=== PATIENT | male | born 1980 | race Caucasian/White ===

== ENCOUNTER 2018-06-17 05:12 | Inpatient (IN) ==
[2018-06-17] MEDS ORDERED: Ondansetron 4 MG/2 ML VIAL IVP ONE (05:33)
[2018-06-17] MEDS ORDERED: 0.9 % Sodium Chloride 1,000 ML IVC ONE ×2 (05:33→07:47)
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
[2018-06-17] MEDS ORDERED: *HR* FentaNYL (PF) 100 MCG/2 ML VIAL IVP ONE (06:02)
[2018-06-17 06:10] LABS: Bilirubin,Urine Negative (Negative); Blood,Urine Small (Negative); Clarity,Urine Turbid (Clear); Color,Urine Yellow (Yellow); Glucose,Urine (UA) Normal (Normal); Ketones,Urine Negative (Negative); Leukocyte Esterase,Urine Moderate (Negative); Nitrite,Urine Positive (Negative); Protein,Urine 30 mg/dL (Neg-Trace); Specific Gravity,Urine 1.014 (1.010-1.025); Urobilinogen,Urine Normal (Normal)
[2018-06-17 06:25] LABS: Amorphous Sediment,Urine Many (Few); Bacteria,Urine Many per hpf (None-Few); Granular Casts,Urine Moderate per lpf (None Seen); RBC,Urine 0-3 per hpf (0-3); WBC,Urine 30-50 per hpf (0-3)
[2018-06-17 06:26] LABS: Squamous Epithelial Cell,Urine Few per lpf (None-Few)
[2018-06-17] MEDS ORDERED: Piperacillin/Tazobactam 3.375 GM in 0.9 % Sodium Chloride Mini Bag 100 ML IVPB ONE (06:40)
[2018-06-17 06:46] LABS: Hematocrit 51.2 % (37.5-50.1); Hemoglobin 17.5 g/dL (12.9-16.9); Mean Corpuscular HGB Conc 34.2 g/dL (31.6-35.5); Mean Corpuscular Hemoglobin 29.6 pg (28.0-33.3); Mean Corpuscular Volume 86.6 fL (83.0-100.0); Platelet Count 154 K/mcL (140-400); Red Blood Count 5.91 M/mcL (4.19-5.50); Red Cell Distribution Width 14.1 % (11.5-14.5)
[2018-06-17 07:06] LABS: Alanine Aminotransferase 50 Units/L (7-52); Albumin/Globulin Ratio 1.9 (1.1-2.2); Alkaline Phosphatase 143 Units/L (34-104); Aspartate Amino Transferase 29 Units/L (13-39); BUN/Creatinine Ratio 11 (6-26); Bilirubin,Direct 0.2 mg/dL (0.0-0.2); Bilirubin,Indirect 0.6 mg/dL (0.0-1.2); Bilirubin,Total 0.8 mg/dL (0.3-1.0); Blood Urea Nitrogen 15 mg/dL (6-20); Calcium 9.7 mg/dL (8.6-10.3); Carbon Dioxide 20 mEq/L (23-29); Chloride 102 mEq/L (98-107); Globulin 2.6 g/dL (2.4-3.5); Glucose 130 mg/dL (70-105); Lipase 8 Units/L (11-82); Osmolality,Calculated 287 (280-300); Potassium 3.9 mEq/L (3.5-5.1); Sodium 137 mEq/L (136-145); Total Protein 7.6 g/dL (6.4-8.9); eGFR For Non-African Americans > 60 (> 60)
[2018-06-17 07:08] LABS: Lymphocytes # 0.5 K/mcL (0.6-4.6); Neutrophils # 23.8 K/mcL (1.6-8.9); Platelet Estimate Normal (Normal)
[2018-06-17] MEDS ORDERED: *HR* HYDROmorphone (PF) 1 MG/ML SYRINGE IVP ONE (07:18)
--- NOTE | 2018-06-17 07:19 | Emergency Department Note ---
Disposition Clinical Impression: Hypoxia, Left ureteral calculus, Hydroureter, left, Acute kidney injury, Severe sepsis UTI (urinary tract infection) Qualifiers: Urinary tract infection type: site unspecified Hematuria presence: without hematuria Qualified Code(s): N39.0 - Urinary tract infection, site not specified Nausea and vomiting Qualifiers: Vomiting type: unspecified Vomiting Intractability: non-intractable Qualified Code(s): R11.2 - Nausea with vomiting, unspecified Abdominal pain Qualifiers: Abdominal location: unspecified location Qualified Code(s): R10.9 - Unspecified abdominal pain Disposition: Admitted As Inpatient Condition: Fair Referrals: NONE,PCP [Primary Care Provider] - Forms: ED Satisfaction Letter, Work/School Release Time of Disposition: 07:58 General Adult HPI - General Chief complaint: ED Abdominal Pain Stated complaint: "Abd Pain/Headache" Time Seen by Provider: 06/17/18 05:31 Source: patient, family Mode of arrival: wheelchair Limitations: physical limitation Nursing Notes Reviewed: Yes Vital Signs Reviewed: Yes - History of Present Illness HPI Narrative: Patient was signed out to me by nighttime physician is Dr. Gentile and Dr. Rosas pending laboratory results and final disposition. Please see their note for further details. Pain Scale: 9 - Related Data Previous Rx's Medication Instructions Recorded Clindamycin [Cleocin] 450 mg PO TID 7 Days capsule 01/12/16 Allergies Allergy/AdvReac Type Severity Reaction Status Date / Time No Known Allergies Allergy Verified 06/14/15 02:45 All systems ED: reviewed and negative except as stated. Constitutional: Denies: fever Cardiovascular: Denies: chest pain Respiratory: Reports: cough Gastrointestinal: Reports: abdominal pain, nausea, vomiting. Denies: diarrhea Genitourinary: Denies: urgency, dysuria Neurological: Denies: headache, weakness, numbness, paresthesias Past Medical History - Past Medical History Medical history: Reports: hypertension, seizures, other Psychiatric history: Reports: no psych history - Social History Smoking Status: Unknown if ever smoked Smokeless Tobacco Status: No Alcohol use: Reports: none Drug use: Reports: none Physical Exam - General Limitations: physical limitation General appearance: alert, in no apparent distress Course Course Narrative: Patient was signed out to me by nighttime physician is Dr. Gentile and Dr. Rosas pending laboratory results and final disposition. Please see their note for further details. Calin is a 37-year-old male with a history of traumatic brain injury with mul tiple abdominal surgeries for postop complications who presents emergency department with abdominal pain nausea vomiting. Symptoms occurred last night. He is in the presence of his parents to take care of them. He initially presented hypoxic on room air 88%. The abdominal pain is quite generalized with to report episodes of nonbloody emesis. CT scan shows 2 mm stone in the distal ureter with some hydronephrosis. Patient wears a condom catheter urinalysis appears consistent with infection with positive nitrite and leuk esterase. Given his history of dysphasia and recent removal of feeding tube the concern was for aspiration. Chest x-ray was performed did not reveal any basilar opacities. However given the presentation of hypoxia abdominal discomfort and urinary tract infection he was treated with Zosyn. His lactate has come back as 2.6. Given his initial presentation of tachycardia with a leukocytosis in the elevated lactate concern for severe sepsis, recognized at 0730. Patient has been fluid resuscitated at this time it will be admitted for further evaluation and treatment. Blood cultures have been obtained. - Consultations Consultation #1: Spoke with the urologist Dr. Robin he will be happy to consult on the floor and evaluate the patient. Given the patient's medical history and size of the stone it is possible it may pass on its own. He will come to evaluate the patient and discuss the plan with the family. Agree with admission to the medicine team. Time: 07:53 Consultation #2: Spoke with on-call hospitalist janett Sinclair to admit for severe sepsis, urin kendrick tract infection, left kidney stone, acute kidney injury. No further orders at this time Time: 08:30 Vital Signs Temperature 97.7 F 06/17/18 05:17 Pulse Rate 133 06/17/18 05:17 Respiratory Rate 18 06/17/18 05:17 Blood Pressure 123/80 06/17/18 05:17 O2 Sat by Pulse Oximetry 88 06/17/18 05:17 Temperature 97.7 F 06/17/18 05:28 Pulse Rate 133 06/17/18 05:28 Respiratory Rate 18 06/17/18 05:28 Blood Pressure 123/80 06/17/18 05:28 O2 Sat by Pulse Oximetry 88 06/17/18 05:28 Oxygen Delivery Oxygen Delivery Room Air Medical Decision Making - MDM Narrative Medical decision making narrative: Patient was discussed with my attending physician who agrees with ED management and final disposition. They independently evaluated the patient. Please refer to their attestation to this encounter for additional information. This note was generated by [employer] voice recognition software and as a result grammatical or spelling errors may occur using this program. - Medical Records Medical records reviewed: Yes I reviewed the patient's medical records. - Lab Data Lab results reviewed: Yes I reviewed the patient's lab results. Result diagrams: 06/17/18 06:30 06/17/18 06:30 Lab Results 06/17/18 06/17/18 06/17/18 Range/Units 06:00 06:30 06:30 WBC 24.3 H (4.3-11.1) K/mcL RBC 5.91 H (4.19-5.50) M/mcL Hgb 17.5 H (12.9-16.9) g/dL Hct 51.2 H (37.5-50.1) % MCV 86.6 (83.0-100.0) fL MCH 29.6 (28.0-33.3) pg MCHC 34.2 (31.6-35.5) g/dL RDW 14.1 (11.5-14.5) % Plt Count 154 (140-400) K/mcL MPV 10.0 (9.4-12.4) fL Seg Neutrophils % 88.0 % Band Neutrophils % 10.0 H (0-4) % Lymphocytes % 2.0 % Neutrophils # 23.8 H (1.6-8.9) K/mcL Lymphocytes # 0.5 L (0.6-4.6) K/mcL Platelet Estimate Normal (Normal) Sodium 137 (136-145) mEq/L Potassium 3.9 (3.5-5.1) mEq/L Chloride 102 (98-107) mEq/L Carbon Dioxide 20 L (23-29) mEq/L BUN 15 (6-20) mg/dL Creatinine 1.32 H (0.70-1.30) mg/dL Est GFR ( Amer) > 60 (> 60) Est GFR (Non-Af Amer) > 60 (> 60) BUN/Creatinine Ratio 11 (6-26) Glucose 130 H (70-105) mg/dL Calculated Osmolality 287 (280-300) Lactic Acid (0.5-2.2) mmol/L Calcium 9.7 (8.6-10.3) mg/dL Total Bilirubin 0.8 (0.3-1.0) mg/dL Direct Bilirubin 0.2 (0.0-0.2) mg/dL Indirect Bilirubin 0.6 (0.0-1.2) mg/dL AST 29 (13-39) Units/L ALT 50 (7-52) Units/L Alkaline Phosphatase 143 H (34-104) Units/L Serum Total Protein 7.6 (6.4-8.9) g/dL Albumin 5.0 (3.5-5.7) g/dL Globulin 2.6 (2.4-3.5) g/dL Albumin/Globulin Ratio 1.9 (1.1-2.2) Lipase 8 L (11-82) Units/L Urine Color Yellow (Yellow) Urine Clarity Turbid A (Clear) Urine pH 7.0 (5.0-8.0) pH Units Ur Specific [place] 1.014 (1.010-1.025) Urine Protein 30 H (Neg-Trace) mg/dL Urine Glucose (UA) Normal (Normal) mg/dL Urine Ketones Negative (Negative) mg/dL Urine Blood Small H (Negative) Urine Nitrite Positive A (Negative) Urine Bilirubin Negative (Negative) Urine Urobilinogen Normal (Normal) mg/dL Ur Leukocyte Esterase Moderate H (Negative) Urine Microscopic RBC 0-3 (0-3) per hpf Urine Microscopic WBC 30-50 H (0-3) per hpf Ur Squamous Epith Cells Few (None-Few) per lpf Amorphous Sediment Many H (Few) Urine Bacteria Many H (None-Few) per hpf Granular Casts Moderate H (None Seen) per lpf Ur Culture Indicated? YES A (NO) 06/17/18 Range/Units 07:00 WBC (4.3-11.1) K/mcL RBC (4.19-5.50) M/mcL Hgb (12.9-16.9) g/dL Hct (37.5-50.1) % MCV (83.0-100.0) fL MCH (28.0-33.3) pg MCHC (31.6-35.5) g/dL RDW (11.5-14.5) % Plt Count (140-400) K/mcL MPV (9.4-12.4) fL Seg Neutrophils % % Band Neutrophils % (0-4) % Lymphocytes % % Neutrophils # (1.6-8.9) K/mcL Lymphocytes # (0.6-4.6) K/mcL Platelet Estimate (Normal) Sodium (136-145) mEq/L Potassium (3.5-5.1) mEq/L Chloride (98-107) mEq/L Carbon Dioxide (23-29) mEq/L BUN (6-20) mg/dL Creatinine (0.70-1.30) mg/dL Est GFR ( Amer) (> 60) Est GFR (Non-Af Amer) (> 60) BUN/Creatinine Ratio (6-26) Glucose (70-105) mg/dL Calculated Osmolality (280-300) Lactic Acid 2.6 H (0.5-2.2) mmol/L Calcium (8.6-10.3) mg/dL Total Bilirubin (0.3-1.0) mg/dL Direct Bilirubin (0.0-0.2) mg/dL Indirect Bilirubin (0.0-1.2) mg/dL AST (13-39) Units/L ALT (7-52) Units/L Alkaline Phosphatase (34-104) Units/L Serum Total Protein (6.4-8.9) g/dL Albumin (3.5-5.7) g/dL Globulin (2.4-3.5) g/dL Albumin/Globulin Ratio (1.1-2.2) Lipase (11-82) Units/L Urine Color (Yellow) Urine Clarity (Clear) Urine pH (5.0-8.0) pH Units Ur Specific [place] (1.010-1.025) Urine Protein (Neg-Trace) mg/dL Urine Glucose (UA) (Normal) mg/dL Urine Ketones (Negative) mg/dL Urine Blood (Negative) Urine Nitrite (Negative) Urine Bilirubin (Negative) Urine Urobilinogen (Normal) mg/dL Ur Leukocyte Esterase (Negative) Urine Microscopic RBC (0-3) per hpf Urine Microscopic WBC (0-3) per hpf Ur Squamous Epith Cells (None-Few) per lpf Amorphous Sediment (Few) Urine Bacteria (None-Few) per hpf Granular Casts (None Seen) per lpf Ur Culture Indicated? (NO) - Radiology Data Radiology results reviewed: Yes I reviewed the patient's radiology results. Abdomen/Pelvis CT 06/17/18 05:32 IMPRESSION: 1. Mild left hydroureteronephrosis secondary to a 2 mm distal left ureteral calculus. 2. Left renal calculus measuring 1.1 cm. D/ / Cash Baltazar MD / Cash Baltazar MD Interpreting Provider: Cash Baltazar MD Chest X-Ray 06/17/18 05:34 IMPRESSION: 1. No active pulmonary disease. D/ / Cash Baltazar MD / Cash Baltazar MD Interpreting Provider: Cash Baltazar MD Attestation Statement - Attestation Attestation: I, Wilbert Gandara DO, examined this patient [id number] and my medical decision-making was reviewed with Denilson Dickerson DO , Resident Physician. I agree with the documented findings, disposition and treatment plan as described except to the extent set forth below. Please see my progress notes for details.
--- NOTE | 2018-06-17 07:57 | Emergency Department Note ---
Disposition Clinical Impression: Hypoxia, Left ureteral calculus, Hydroureter, left, Acute kidney injury, Severe sepsis UTI (urinary tract infection) Qualifiers: Urinary tract infection type: site unspecified Hematuria presence: without hematuria Qualified Code(s): N39.0 - Urinary tract infection, site not specified Nausea and vomiting Qualifiers: Vomiting type: unspecified Vomiting Intractability: non-intractable Qualified Code(s): R11.2 - Nausea with vomiting, unspecified Abdominal pain Qualifiers: Abdominal location: unspecified location Qualified Code(s): R10.9 - Unspecified abdominal pain Disposition: Admitted As Inpatient Condition: Fair Referrals: NONE,PCP [Primary Care Provider] - Forms: ED Satisfaction Letter, Work/School Release Time of Disposition: 08:31 General Adult HPI - General Chief complaint: ED Abdominal Pain Stated complaint: "Abd Pain/Headache" Time Seen by Provider: 06/17/18 05:31 Source: patient, family Mode of arrival: wheelchair Limitations: physical limitation - History of Present Illness Pain Scale: 9 - Related Data Previous Rx's Medication Instructions Recorded Clindamycin [Cleocin] 450 mg PO TID 7 Days capsule 01/12/16 Allergies Allergy/AdvReac Type Severity Reaction Status Date / Time No Known Allergies Allergy Verified 06/14/15 02:45 Constitutional: Denies: fever Cardiovascular: Denies: chest pain Respiratory: Reports: cough Gastrointestinal: Reports: abdominal pain, nausea, vomiting. Denies: diarrhea Genitourinary: Denies: urgency, dysuria Neurological: Denies: headache, weakness, numbness, paresthesias Past Medical History - Past Medical History Medical history: Reports: hypertension, seizures, other Psychiatric history: Reports: no psych history - Social History Smoking Status: Unknown if ever smoked Smokeless Tobacco Status: No Alcohol use: Reports: none Drug use: Reports: none Physical Exam - General Limitations: physical limitation General appearance: alert, in no apparent distress Course Vital Signs Temperature 97.7 F 06/17/18 05:17 Pulse Rate 133 06/17/18 05:17 Respiratory Rate 18 06/17/18 05:17 Blood Pressure 123/80 06/17/18 05:17 O2 Sat by Pulse Oximetry 88 06/17/18 05:17 Temperature 97.7 F 06/17/18 05:28 Pulse Rate 133 06/17/18 05:28 Respiratory Rate 18 06/17/18 05:28 Blood Pressure 123/80 06/17/18 05:28 O2 Sat by Pulse Oximetry 88 06/17/18 05:28 Oxygen Delivery Oxygen Delivery Room Air Medical Decision Making - Lab Data Result diagrams: 06/17/18 06:30 06/17/18 06:30 Lab Results 06/17/18 06/17/18 06/17/18 Range/Units 06:00 06:30 06:30 WBC 24.3 H (4.3-11.1) K/mcL RBC 5.91 H (4.19-5.50) M/mcL Hgb 17.5 H (12.9-16.9) g/dL Hct 51.2 H (37.5-50.1) % MCV 86.6 (83.0-100.0) fL MCH 29.6 (28.0-33.3) pg MCHC 34.2 (31.6-35.5) g/dL RDW 14.1 (11.5-14.5) % Plt Count 154 (140-400) K/mcL MPV 10.0 (9.4-12.4) fL Seg Neutrophils % 88.0 % Band Neutrophils % 10.0 H (0-4) % Lymphocytes % 2.0 % Neutrophils # 23.8 H (1.6-8.9) K/mcL Lymphocytes # 0.5 L (0.6-4.6) K/mcL Platelet Estimate Normal (Normal) Sodium 137 (136-145) mEq/L Potassium 3.9 (3.5-5.1) mEq/L Chloride 102 (98-107) mEq/L Carbon Dioxide 20 L (23-29) mEq/L BUN 15 (6-20) mg/dL Creatinine 1.32 H (0.70-1.30) mg/dL Est GFR ( Amer) > 60 (> 60) Est GFR (Non-Af Amer) > 60 (> 60) BUN/Creatinine Ratio 11 (6-26) Glucose 130 H (70-105) mg/dL Calculated Osmolality 287 (280-300) Lactic Acid (0.5-2.2) mmol/L Calcium 9.7 (8.6-10.3) mg/dL Total Bilirubin 0.8 (0.3-1.0) mg/dL Direct Bilirubin 0.2 (0.0-0.2) mg/dL Indirect Bilirubin 0.6 (0.0-1.2) mg/dL AST 29 (13-39) Units/L ALT 50 (7-52) Units/L Alkaline Phosphatase 143 H (34-104) Units/L Serum Total Protein 7.6 (6.4-8.9) g/dL Albumin 5.0 (3.5-5.7) g/dL Globulin 2.6 (2.4-3.5) g/dL Albumin/Globulin Ratio 1.9 (1.1-2.2) Lipase 8 L (11-82) Units/L Urine Color Yellow (Yellow) Urine Clarity Turbid A (Clear) Urine pH 7.0 (5.0-8.0) pH Units Ur Specific [place] 1.014 (1.010-1.025) Urine Protein 30 H (Neg-Trace) mg/dL Urine Glucose (UA) Normal (Normal) mg/dL Urine Ketones Negative (Negative) mg/dL Urine Blood Small H (Negative) Urine Nitrite Positive A (Negative) Urine Bilirubin Negative (Negative) Urine Urobilinogen Normal (Normal) mg/dL Ur Leukocyte Esterase Moderate H (Negative) Urine Microscopic RBC 0-3 (0-3) per hpf Urine Microscopic WBC 30-50 H (0-3) per hpf Ur Squamous Epith Cells Few (None-Few) per lpf Amorphous Sediment Many H (Few) Urine Bacteria Many H (None-Few) per hpf Granular Casts Moderate H (None Seen) per lpf Ur Culture Indicated? YES A (NO) 06/17/18 Range/Units 07:00 WBC (4.3-11.1) K/mcL RBC (4.19-5.50) M/mcL Hgb (12.9-16.9) g/dL Hct (37.5-50.1) % MCV (83.0-100.0) fL MCH (28.0-33.3) pg MCHC (31.6-35.5) g/dL RDW (11.5-14.5) % Plt Count (140-400) K/mcL MPV (9.4-12.4) fL Seg Neutrophils % % Band Neutrophils % (0-4) % Lymphocytes % % Neutrophils # (1.6-8.9) K/mcL Lymphocytes # (0.6-4.6) K/mcL Platelet Estimate (Normal) Sodium (136-145) mEq/L Potassium (3.5-5.1) mEq/L Chloride (98-107) mEq/L Carbon Dioxide (23-29) mEq/L BUN (6-20) mg/dL Creatinine (0.70-1.30) mg/dL Est GFR ( Amer) (> 60) Est GFR (Non-Af Amer) (> 60) BUN/Creatinine Ratio (6-26) Glucose (70-105) mg/dL Calculated Osmolality (280-300) Lactic Acid 2.6 H (0.5-2.2) mmol/L Calcium (8.6-10.3) mg/dL Total Bilirubin (0.3-1.0) mg/dL Direct Bilirubin (0.0-0.2) mg/dL Indirect Bilirubin (0.0-1.2) mg/dL AST (13-39) Units/L ALT (7-52) Units/L Alkaline Phosphatase (34-104) Units/L Serum Total Protein (6.4-8.9) g/dL Albumin (3.5-5.7) g/dL Globulin (2.4-3.5) g/dL Albumin/Globulin Ratio (1.1-2.2) Lipase (11-82) Units/L Urine Color (Yellow) Urine Clarity (Clear) Urine pH (5.0-8.0) pH Units Ur Specific [place] (1.010-1.025) Urine Protein (Neg-Trace) mg/dL Urine Glucose (UA) (Normal) mg/dL Urine Ketones (Negative) mg/dL Urine Blood (Negative) Urine Nitrite (Negative) Urine Bilirubin (Negative) Urine Urobilinogen (Normal) mg/dL Ur Leukocyte Esterase (Negative) Urine Microscopic RBC (0-3) per hpf Urine Microscopic WBC (0-3) per hpf Ur Squamous Epith Cells (None-Few) per lpf Amorphous Sediment (Few) Urine Bacteria (None-Few) per hpf Granular Casts (None Seen) per lpf Ur Culture Indicated? (NO) Attestation Statement - Attestation Attestation: I, Wilbert Gandara DO, examined this patient [id number] and my medical decision-making was reviewed with Denilson Dickerson DO , Resident Physician. I agree with the documented findings, disposition and treatment plan as described except to the extent set forth below. Please see my progress notes for details. 37-year-old male signed out from the nighttime physician Dr. Rosas. Detailed review the presentation symptoms medical intervention and medical findings were discussed. Patient has a known 2 millimeter stone at the distal UVJ the left ureter. Patient does have a urinary tract infection. He was febrile and complaining of generalized malaise prior to coming in. Vital signs are reviewed and relatively unremarkable at this point. Fluids nausea medication first dose of Zosyn was provided with concern for possible aspiration pneumonia since the patient does have a history of dysphasia. On my repeat evaluation the patient is denying chest pain, shortness of breath, nausea vomiting. He has had 2 episodes of diarrhea. He denies any falls trauma or injury. He does have left- sided weakness secondary to a traumatic brain injury. No new symptoms or issues. Both the mother and the father at the bedside and confirms the presenting symptoms complaints and issues. Antibiotics were started at this elen e. Lactic acid is 2.6. Patient is undergoing provided 1 L of fluids and will receive a second liter here at this time. Urologist Dr. Robin was contacted and will evaluate the patient. He does feel that the stone will most likely pass on its own but in the context of the presentation symptoms he will evaluate. No other concerns or issues noted this point. The hospitalist will be contacted for admission. See detailed documentation of the repeat physical exam, medical intervention, medical decision-making and disposition in the resident physician's note. 0800 Patient does meet criteria for severe sepsis at this time with a negative lactic acid. His heart rate is responded to the fluids. Repeat doses have been given. Patient does not have any acute signs of hypoxia or respiratory distress while here in the department. Urology will evaluate. Patient will be admitted to the hospitalist group at this time. [address] Plasencia reviewed the case. No other recommendations or concerns at this time. The patient will be admitted to the hospitalist service for management of the severe sepsis with urology consultation. She will be monitored here in the emergency room until admission process is completed
[2018-06-17] MEDS ORDERED: OXYCODONE Oral CONC 10 MG/0.5 ML ORAL.SYG SL PRN (09:10)
[2018-06-17] MEDS ORDERED: Naloxone 0.4 MG/ML INJ IVP PRN ×2 (09:10)
[2018-06-17] MEDS ORDERED: Ondansetron 4 MG/2 ML VIAL IVP PRN (09:10)
[2018-06-17] MEDS ORDERED: cefTRIAXone 2,000 MG in Water for inj. (sterile) 20 ML 10 ML IVPB ONE (09:11)
--- NOTE | 2018-06-17 09:13 | Internal Med History&Physical ---
Date of Encounter: 06/17/18 Time of Encounter: 10:02 Internal Medicine - H&P: HPI Chief complaint: Fever Admitted From: Home Plans for Post Hospital Care: Home History of present illness: Mr. 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 The brought into the emergency room due to complaints of nausea and persistent vomiting, associated with abdominal pain and hiccups. His symptoms started yesterday, and has been progressively worsening. His mother reports subjective fevers with chills. Vomitus is non-bloody and non-bilious, continued recently ingested nails. His mother also reports multiple episodes of choking on ingestion of liquids, and had recently just removed his feeding tube. She denies a history of cough or chest pain. He has had no changes in his bowel or urinary habits. He lives with his parents who take care of him, and by a motorized wheel chair at home. The patient himself is unable to participate in the history taking due to altered mentation. On presentation to the ER, he is afebrile, tachycardic, tachypneic, hypoxic on room air with oxygen saturation of 88%, Work up showed CBC with leukocytosis of 29,000 with left shift, hemoconcentration with polycythemia, acute kidney injury, urine analysis was significant leukocyte esterase and nitrites. Abdomen and pelvis CAT scan showed an obstructing 2 mm stone with resistant left hydro-nephrosis Although he is hypoxic on room air, chest x-ray did not show any infiltrates, no cardiomegaly. He is not in significant respiratory distress, but he is requiring at least 2 L O2 for saturation to be at He will be admitted for severe sepsis secondary to complicated UTI with KAYLEN and obstructive uropathy He is full code Past Med Surg Social Fam HX - Past Medical History Medical history: hypertension, seizures, other Additional medical history: TBI Psychiatric history: no psych history - Past Surgical History Additional surgical history: Trach placement and reversal. g-tube placement - Social History Smoking Status: Unknown if ever smoked Smokeless Tobacco Status: No Alcohol use: none Drug use: none Internal Medicine - H&P: Meds Allergy/AdvReac Type Severity Reaction Status Date / Time No Known Allergies Allergy Verified 06/14/15 02:45 All Systems PM: A 10-system review of systems was performed and is negative for pertinent findings except as documented above in the HPI. - Constitutional Constitutional: as per HPI - EENT Eyes: as per HPI Ears: as per HPI Nose, mouth and throat: as per HPI - Cardiovascular Cardiovascular ROS IM: no chest pain, no diaphoresis, no dyspnea, no lightheadedness, no palpitations, no syncope - Respiratory Respiratory: no cough, no dyspnea, no wheezing, no excessive phlegm production - Gastrointestinal Gastrointestinal: as per HPI, abdominal pain, nausea, vomiting - Genitourinary Genitourinary ROS male: as per HPI - Musculoskeletal Musculoskeletal ROS IM: as per HPI - Integumentary Integumentary IM: rash (Rash on the right side of the face, said to be chronic) - Neurological Neurological ROS: as per HPI, convulsions, no focal weakness, no tingling, no tremor(s) - Hematologic/Lymphatic Hematologic/Lymphatic: no easy bruising - Constitutional Vitals: Temp Pulse Resp BP Pulse Ox 97.7 F 115 18 114/80 95 06/17/18 05:28 06/17/18 08:53 06/17/18 08:53 06/17/18 08:53 06/17/18 08:56 Exam: VS: tachycardic, tachypneic, O2 88-90 on room air, improves to 94% with 2 L of oxygen Gen: Calm, not in distress HEENT: Moist oral mucosa, sclera anicteric, not pale. Right facial rash so to be chronic by patient's mother Chest: Equal chest movement bilaterally REsp: CTAB on anterior auscultation, no wheezes or rhonchi or rales Heart: S1, S2, tachycardic, regular, no murmurs or gallops or rubs. Abdomen: Supraumbilical scar, scar from healed PEG tube site, obese, soft, not tender, BS present in al quadrants Extremities: Joint inspection is WNL, no pedal edema, pulses present bilaterally. Left upper extremity contracture Neuro: Alert, oriented to person, speech is forced, and slurred,no facial paralysis, left hemiplegia upper extremity worse than lower extremity Psych: Affect is appropriate for situation Internal Med - H&P Results - Labs CBC & Chem 7: 06/17/18 06:30 06/17/18 06:30 Labs: Short CBC 06/17/18 Range/Units 06:30 WBC 24.3 H (4.3-11.1) K/mcL Hgb 17.5 H (12.9-16.9) g/dL Hct 51.2 H (37.5-50.1) % Plt Count 154 (140-400) K/mcL Neutrophils # 23.8 H (1.6-8.9) K/mcL BMP 06/17/18 06:30 Sodium 137 Potassium 3.9 Chloride 102 Carbon Dioxide 20 L BUN 15 Creatinine 1.32 H Glucose 130 H Calcium 9.7 Liver Function 06/17/18 Range/Units 06:30 Total Bilirubin 0.8 (0.3-1.0) mg/dL Direct Bilirubin 0.2 (0.0-0.2) mg/dL AST 29 (13-39) Units/L ALT 50 (7-52) Units/L Alkaline Phosphatase 143 H (34-104) Units/L Albumin 5.0 (3.5-5.7) g/dL Urine 06/17/18 Range/Units 06:00 Urine Color Yellow (Yellow) Urine Clarity Turbid A (Clear) Urine pH 7.0 (5.0-8.0) pH Units Ur Specific [place] 1.014 (1.010-1.025) Urine Protein 30 H (Neg-Trace) mg/dL Urine Glucose (UA) Normal (Normal) mg/dL - Impressions ITS Impressions Abdomen/Pelvis CT 06/17/18 05:32 IMPRESSION: 1. Mild left hydroureteronephrosis secondary to a 2 mm distal left ureteral calculus. 2. Left renal calculus measuring 1.1 cm. D/ / Cash Baltazar MD / Cash Baltazar MD Interpreting Provider: Cash Baltazar MD Chest X-Ray 06/17/18 05:34 IMPRESSION: 1. No active pulmonary disease. D/ / Cash Baltazar MD / Cash Baltazar MD Interpreting Provider: Cash Baltazar MD - Assessment and plan (1) Lactic acidosis Current Visit: Yes Status: Acute (2) Severe sepsis Current Visit: Yes Status: Acute Assessment and plan: Patient meets sepsis criteria with subjective fevers, tachycardia and tachypnea, leukocytosis and lactic acidosis Source is UTI Complicated UTI due to gender, presence of stone and obstruction Given Zosyn in ER, no recent hospitalization or procedures Continue with Ceftriaxone 2g daily Added Flagly for likely aspiration PNA Urine culture and blood culture has been sent, will follow final sensitivity Rpt lactate Continue IVF hydration Continue to monitor (3) Acute kidney injury Current Visit: Yes Status: Acute Assessment and plan: Patient with creatinine of 1.32, baseline is around 0.8 KAYLEN is likely pre-renal from sepsis and post-renal from obstructive uropathy due to obstructing stone with hydronephrosis Continue IV fluid hydration Urology has been consulted for evaluation and likely intervention keep patient nothing by mouth. (4) Hydroureter, left Current Visit: Yes Status: Acute Assessment and plan: Follow urology recommendations continue antibiotics (5) Hypoxia Current Visit: Yes Status: Acute Assessment and plan: Likely due to multiple episodes of microaspiration's in the patient with known dysphagia Continue oxygen support by nasal cannula Speech eval Keep NPO for now (6) Left ureteral calculus Current Visit: Yes Status: Acute Assessment and plan: management per urology, ER team called in consult (7) UTI (urinary tract infection) Current Visit: Yes Status: Acute Assessment and plan: Complicated UTI due to gender, presence of stone and obstruction Given Zosyn in ER, no recent hospitalization or procedures Continue with Ceftriaxone 2g daily Added Flagly for likely aspiration PNA Urine culture and blood culture has been sent, will follow final sensitivity Qualifiers: Urinary tract infection type: site unspecified Hematuria presence: without hematuria Qualified Code(s): N39.0 - Urinary tract infection, site not specified (8) Dysphagia Current Visit: Yes Status: Chronic Assessment and plan: Speech and swallow evaluation Continue NPO for now Qualifiers: Dysphagia type: unspecified Qualified Code(s): R13.10 - Dysphagia, unspecified - Time Spent With Patient Total time spent is greater than 50% in coordination of care (as documented) at patient's floor/unit and/or counseling patient:
--- NOTE | 2018-06-17 10:01 | Urology - Consult Note ---
Date of Encounter: 06/17/18 Time of Encounter: 09:59 - Assessment and Plan (1) Left ureteral calculus Current Visit: Yes Status: Acute Assessment and plan: I personally reviewed the CT scan. There is a 2 mm distal ureteral stone with mild hydroureter and hydronephrosis. There are 2 nonobstructing stones in the lower pole left kidney measuring up to 1.1 cm. The bladder does not appear overly distended. There is mild bladder wall thickening. I discussed with the family that the 2 mm ureteral stone is likely the source of his significant illness. He is in no pain at this time and his blood pressure is stable. He still has tachycardia. The parents report that he is back to his baseline in regards to his mental status and behavior. I discussed surgical intervention of the stone. This would involve a ureteroscopic stone extraction. We discussed proceeding today because of his recent illness but ultimately have elected to observe patient over the next 24 hours as there is potential he could pass the stone and not require surgical intervention. Overall his condition has improved with antibiotics, pain medication and hydration and I feel that observation is an option. The parents understand the risk that he could develop illness again overnight. The plan is to proceed with a CT pelvis in the morning to evaluate if the stone is still present. If the stone is still present we will likely proceed with a stone extraction tomorrow. Okay for regular diet today. Nothing by mouth after midnight. Although he does have a significant elevation of his white cell count his hemoglobin is also elevated indicating some dehydration. I suspect the labs will improve greatly with hydration and antibiotics. He will likely require nonurgent outpatient management of the larger left renal stones Urology CN:[facility] Consult date: 06/17/18 Reason for consult Urology: Other History of present illness: 37-year-old male with a history of a traumatic brain injury 3 years ago. He is cared for by his parents at home. No history of kidney stones. Family history of kidney stones in his father. Recent onset of severe abdominal pain and illness. They describe no fever. CT scan in the emergency room shows a 2 mm distal ureteral stone with mild hydronephrosis. Nonobstructing left renal stones up to 1.1 cm. He uses a condom catheter to manage his bladder. He described no formal urologic evaluation. Past Med Surg Social Fam HX - Past Medical History Medical history: hypertension, seizures, other Additional medical history: TBI Psychiatric history: no psych history - Past Surgical History Additional surgical history: Trach placement and reversal. g-tube placement - Social History Smoking Status: Unknown if ever smoked Smokeless Tobacco Status: No Alcohol use: none Drug use: none Medications and Allergies Allergy/AdvReac Type Severity Reaction Status Date / Time No Known Allergies Allergy Verified 06/14/15 02:45 Review of Systems ROS unobtainable: due to mental status - Gastrointestinal no abdominal pain Exam Initial Vital Signs Temp Pulse Resp BP Pulse Ox 97.7 F 133 18 123/80 88 06/17/18 05:17 06/17/18 05:17 06/17/18 05:17 06/17/18 05:17 06/17/18 05:17 - General physical appearance Present: no distress - Eyes Present: other (Does not main eye contact.). Absent: normal ocular movement - ENT Present: normal nares - Neck Present: no masses, no lymphadenopathy - Respiratory Present: normal respiratory effort - Cardiovascular Cardiovascular exam IM: tachycardia - Abdomen Abdomen: Present: soft. Absent: suprapubic tenderness - Neurologic Absent: disoriented, confused - Additional Findings Patient answer simple yes no questions. No movement of lower extremities. Limited movement of upper remedies with some contraction. Urology Results - Labs 06/17/18 06:30 06/17/18 06:30 Abnormal lab results WBC 24.3 K/mcL (4.3-11.1) H 06/17/18 06:30 RBC 5.91 M/mcL (4.19-5.50) H 06/17/18 06:30 Hgb 17.5 g/dL (12.9-16.9) H 06/17/18 06:30 Hct 51.2 % (37.5-50.1) H 06/17/18 06:30 Band Neutrophils % 10.0 % (0-4) H 06/17/18 06:30 Neutrophils # 23.8 K/mcL (1.6-8.9) H 06/17/18 06:30 Lymphocytes # 0.5 K/mcL (0.6-4.6) L 06/17/18 06:30 Carbon Dioxide 20 mEq/L (23-29) L 06/17/18 06:30 Creatinine 1.32 mg/dL (0.70-1.30) H 06/17/18 06:30 Glucose 130 mg/dL (70-105) H 06/17/18 06:30 Lactic Acid 2.6 mmol/L (0.5-2.2) H 06/17/18 07:00 Alkaline Phosphatase 143 Units/L (34-104) H 06/17/18 06:30 Lipase 8 Units/L (11-82) L 06/17/18 06:30 Urine Clarity Turbid (Clear) A 06/17/18 06:00 Urine Protein 30 mg/dL (Neg-Trace) H 06/17/18 06:00 Urine Blood Small (Negative) H 06/17/18 06:00 Urine Nitrite Positive (Negative) A 06/17/18 06:00 Ur Leukocyte Esterase Moderate (Negative) H 06/17/18 06:00 Urine Microscopic WBC 30-50 per hpf (0-3) H 06/17/18 06:00 Amorphous Sediment Many (Few) H 06/17/18 06:00 Urine Bacteria Many per hpf (None-Few) H 06/17/18 06:00 Granular Casts Moderate per lpf (None Seen) H 06/17/18 06:00 Ur Culture Indicated? YES (NO) A 06/17/18 06:00 Diabetes panel 06/17/18 Range/Units 06:30 Sodium 137 (136-145) mEq/L Potassium 3.9 (3.5-5.1) mEq/L Chloride 102 (98-107) mEq/L Carbon Dioxide 20 L (23-29) mEq/L BUN 15 (6-20) mg/dL Creatinine 1.32 H (0.70-1.30) mg/dL Glucose 130 H (70-105) mg/dL Calcium 9.7 (8.6-10.3) mg/dL AST 29 (13-39) Units/L ALT 50 (7-52) Units/L Alkaline Phosphatase 143 H (34-104) Units/L Albumin 5.0 (3.5-5.7) g/dL Calcium panel 06/17/18 Range/Units 06:30 Calcium 9.7 (8.6-10.3) mg/dL Albumin 5.0 (3.5-5.7) g/dL Pituitary panel 06/17/18 Range/Units 06:30 Sodium 137 (136-145) mEq/L Potassium 3.9 (3.5-5.1) mEq/L Chloride 102 (98-107) mEq/L Carbon Dioxide 20 L (23-29) mEq/L BUN 15 (6-20) mg/dL Creatinine 1.32 H (0.70-1.30) mg/dL Glucose 130 H (70-105) mg/dL Calcium 9.7 (8.6-10.3) mg/dL Adrenal panel 06/17/18 Range/Units 06:30 Sodium 137 (136-145) mEq/L Potassium 3.9 (3.5-5.1) mEq/L Chloride 102 (98-107) mEq/L Carbon Dioxide 20 L (23-29) mEq/L BUN 15 (6-20) mg/dL Creatinine 1.32 H (0.70-1.30) mg/dL Glucose 130 H (70-105) mg/dL Calcium 9.7 (8.6-10.3) mg/dL Total Bilirubin 0.8 (0.3-1.0) mg/dL AST 29 (13-39) Units/L ALT 50 (7-52) Units/L Alkaline Phosphatase 143 H (34-104) Units/L Albumin 5.0 (3.5-5.7) g/dL All other labs normal. Consult Discharge Plan - Plan Referrals: NONE,PCP [Primary Care Provider] -
[2018-06-17] MEDS: OXYCODONE Oral CONC 10 MG/0.5 ML ORAL.SYG SL PRN ×2 (15:03→20:43)
[2018-06-17] MEDS: 0.9 % Sodium Chloride 1,000 ML IVC SCH (15:11)
[2018-06-17] MEDS: MetroNIDAZOLE 500 MG/100 ML 500 MG/100 ML BAG IVPB SCH ×3 (17:33→23:58)
[2018-06-17] MEDS ORDERED: Acetaminophen 325 MG TABLET PO PRN (18:00)
[2018-06-17] MEDS ORDERED: OLANZapine 5 MG TAB.RAPDIS PO SCH (21:00)
[2018-06-17] MEDS ORDERED: hydrOXYzine pamoate 25 MG CAPSULE PO SCH (21:00)
[2018-06-17 22:08] LABS: Acinetobacter baumannii by PCR Not Detected (Not Detect); Candida albicans by PCR Not Detected (Not Detect); Candida glabrata by PCR Not Detected (Not Detect); Candida krusei by PCR Not Detected (Not Detect); Candida parapsilosis by PCR Not Detected (Not Detect); Candida tropicalis by PCR Not Detected (Not Detect); Enterobacter cloacae Cmplx PCR Not Detected (Not Detect); Enterobacteriaceae by PCR DETECTED (Not Detect); Enterococcus by PCR Not Detected (Not Detect); Escherichia coli by PCR DETECTED (Not Detect); Klebsiella oxytoca by PCR Not Detected (Not Detect); Klebsiella pneumoniae by PCR Not Detected (Not Detect); Proteus by PCR Not Detected (Not Detect); Pseudomonas aeruginosa by PCR Not Detected (Not Detect); Serratia marcescens by PCR Not Detected (Not Detect); Staphylococcus aureus by PCR Not Detected (Not Detect); Staphylococcus by PCR Not Detected (Not Detect); Streptococcus agalactiae(B)PCR Not Detected (Not Detect); Streptococcus by PCR Not Detected (Not Detect); Streptococcus pneumoniae PCR Not Detected (Not Detect); Streptococcus pyogenes (A) PCR Not Detected (Not Detect); blaKPC Carbapenem-Resist Gene Not Detected (Not Detect); mecA Methicillin-Resist Gene Not Detected (Not Detect); vanA/B Vancomycin-Resist Genes Not Detected (Not Detect)
[2018-06-18] MEDS: 0.9 % Sodium Chloride 1,000 ML IVC SCH (05:35)
[2018-06-18] MEDS: OXYCODONE Oral CONC 10 MG/0.5 ML ORAL.SYG SL PRN ×3 (05:36→21:56)
[2018-06-18 05:46] LABS: Basophils # 0.1 K/mcL (0.0-0.2); Basophils % 0.4 %; Eosinophils # 0.1 K/mcL (0.0-0.6); Eosinophils % 0.6 %; Hematocrit 49.9 % (37.5-50.1); Hemoglobin 16.6 g/dL (12.9-16.9); Immature Granulocytes % 0.4 % (0-4); Lymphocytes % 6.1 %; Mean Corpuscular HGB Conc 33.3 g/dL (31.6-35.5); Mean Corpuscular Hemoglobin 29.4 pg (28.0-33.3); Mean Corpuscular Volume 88.3 fL (83.0-100.0); Mean Platelet Volume 10.4 fL (9.4-12.4); Monocytes # 1.2 K/mcL (0.0-1.3); Monocytes % 7.2 %; Neutrophils # 13.9 K/mcL (1.6-8.9); Platelet Count 149 K/mcL (140-400); Red Blood Count 5.65 M/mcL (4.19-5.50); Red Cell Distribution Width 14.7 % (11.5-14.5); Segmented Neutrophils % 85.3 %
[2018-06-18] MEDS ORDERED: *HR* Enoxaparin 40 MG/0.4 ML SYRINGE SQ SCH (06:00)
[2018-06-18 06:01] LABS: BUN/Creatinine Ratio 11 (6-26); Blood Urea Nitrogen 14 mg/dL (6-20); Calcium 9.1 mg/dL (8.6-10.3); Carbon Dioxide 22 mEq/L (23-29); Chloride 104 mEq/L (98-107); Glucose 122 mg/dL (70-105); Osmolality,Calculated 286 (280-300); Sodium 137 mEq/L (136-145); eGFR For Non-African Americans > 60 (> 60)
--- NOTE | 2018-06-18 07:03 | Urology Progress Note ---
Date of Encounter: 06/18/18 Time of Encounter: 07:01 - Assessment and Plan (1) Left ureteral calculus Current Visit: Yes Status: Acute Assessment and plan: awaiting CT scan this AM. if stone is still present will proceed with stone extraction today. pt has urosepsis but no fever and BP stable overnight. still with tachycardia. will consent pt when parents are present bc of hx TBI. Progress Note Narrative: pt asleep no acute events overnight. no fever. Objective Initial Vital Signs Temp Pulse Resp BP Pulse Ox 97.7 F 133 18 123/80 88 06/17/18 05:17 06/17/18 05:17 06/17/18 05:17 06/17/18 05:17 06/17/18 05:17 - General physical appearance Present: no distress - Additional Exam asleep. - Labs 06/18/18 05:31 06/18/18 05:31 Diabetes panel 06/17/18 06/18/18 Range/Units 06:30 05:31 Sodium 137 137 (136-145) mEq/L Potassium 3.9 4.0 (3.5-5.1) mEq/L Chloride 102 104 (98-107) mEq/L Carbon Dioxide 20 L 22 L (23-29) mEq/L BUN 15 14 (6-20) mg/dL Creatinine 1.32 H 1.30 (0.70-1.30) mg/dL Glucose 130 H 122 H (70-105) mg/dL Calcium 9.7 9.1 (8.6-10.3) mg/dL AST 29 (13-39) Units/L ALT 50 (7-52) Units/L Alkaline Phosphatase 143 H (34-104) Units/L Albumin 5.0 (3.5-5.7) g/dL Calcium panel 06/17/18 06/18/18 Range/Units 06:30 05:31 Calcium 9.7 9.1 (8.6-10.3) mg/dL Albumin 5.0 (3.5-5.7) g/dL Pituitary panel 06/17/18 06/18/18 Range/Units 06:30 05:31 Sodium 137 137 (136-145) mEq/L Potassium 3.9 4.0 (3.5-5.1) mEq/L Chloride 102 104 (98-107) mEq/L Carbon Dioxide 20 L 22 L (23-29) mEq/L BUN 15 14 (6-20) mg/dL Creatinine 1.32 H 1.30 (0.70-1.30) mg/dL Glucose 130 H 122 H (70-105) mg/dL Calcium 9.7 9.1 (8.6-10.3) mg/dL Adrenal panel 06/17/18 06/18/18 Range/Units 06:30 05:31 Sodium 137 137 (136-145) mEq/L Potassium 3.9 4.0 (3.5-5.1) mEq/L Chloride 102 104 (98-107) mEq/L Carbon Dioxide 20 L 22 L (23-29) mEq/L BUN 15 14 (6-20) mg/dL Creatinine 1.32 H 1.30 (0.70-1.30) mg/dL Glucose 130 H 122 H (70-105) mg/dL Calcium 9.7 9.1 (8.6-10.3) mg/dL Total Bilirubin 0.8 (0.3-1.0) mg/dL AST 29 (13-39) Units/L ALT 50 (7-52) Units/L Alkaline Phosphatase 143 H (34-104) Units/L Albumin 5.0 (3.5-5.7) g/dL Consult Discharge Plan - Plan Referrals: NONE,PCP [Primary Care Provider] -
[2018-06-18] MEDS ORDERED: Cholecalciferol (D-3) 1,000 UNIT TABLET PO SCH (09:00)
[2018-06-18] MEDS ORDERED: Multivit/Ca/Min/Fe/FA 1 TAB TABLET PO SCH (09:00)
[2018-06-18] MEDS ORDERED: cefTRIAXone 2,000 MG in Water for inj. (sterile) 20 ML 20 ML IVPB SCH (09:00)
[2018-06-18] MEDS ORDERED: Dextrose Gel 15 GM/37.5 ML TUBE PO PRN ×4 (10:07→16:19)
[2018-06-18] MEDS ORDERED: D5% in Water 1,000 ML IVC PRN ×2 (10:07→16:19)
[2018-06-18] MEDS ORDERED: *HR* Dextrose 50 % in Water (Syg) 50 ML SYRINGE IVP PRN ×2 (10:07→16:19)
[2018-06-18] MEDS ORDERED: MethylPREDNISolone 40 MG/ML VIAL IVP ONE (10:09)
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
[2018-06-18] MEDS ORDERED: Isovue-370 500 ML INFUS..BTL IV ONE (10:13)
[2018-06-18] MEDS ORDERED: Metoclopramide 10 MG/10 ML UD.LIQ PO PRN ×2 (10:14→16:19)
[2018-06-18] MEDS ORDERED: D5% in 0.9% NACL 1,000 ML IVC SCH (10:15)
[2018-06-18] MEDS ORDERED: 0.9 % Sodium Chloride 500 ML IVC ONE (10:16)
[2018-06-18] MEDS: Levalbuterol Neb 0.63 MG/3 ML IH SCH ×3 (10:36→22:21)
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
[2018-06-18] MEDS ORDERED: Insulin LISPRO 300 UNITS/3 ML VIAL SQ SCH ×2 (12:00→18:00)
[2018-06-18] MEDS ORDERED: Lidocaine -MPF 4% 5 ML AMPUL ONE ×2 (12:24→13:22)
--- NOTE | 2018-06-18 12:31 | Operative Note ---
Date of procedure: 06/18/18 Pre-op diagnosis: left distal ureteral stone/urosepsis Post-op diagnosis: same Procedure: left ureteroscopic stone extraction left RPG left JJ stent placement Anesthesia: GETA Surgeon: Victor Manuel Roibn Was there an bilingual administrative assistant present: No Estimated blood loss (cc): 0 Specimen: no significant stone retrieved as it crumbled with basket extraction. Condition: stable Disposition: PACU Procedure in Detail: PROCEDURE IN DETAIL: Patient was taken back to the operating room, positioned supine on the operating table. Anesthesia was applied without complication. They were moved into dorsal lithotomy. Careful attention was maintained to cushion all pressure points for patient's safety. They were prepped and draped in sterile fashion. Time-out was performed with the proper patient and procedure. A 21-Irish rigid cystoscope was inserted into the bladder without difficulty. Systematic examination of bladder revealed no abnormalities except some cystitis cystica. The left ureteral orifice was cannulated using a 5-Irish ureteral Catheter and a retrograde pyelogram was performed using Isovue. A filling defect was identified which corresponded to the stone as well as hydroureter. A semi-rigid ureteroscope was carefully inserted into the bladder and guided into the ureteral oriface. At that point, the stone was encountered and I attempted to basket extract the stone but it continually crumbled in the basket. I was able to remove all stone in the ureter but no significant fragments were available for analysis. A 4.8 x 26 ureteral stent was placed over the zip wire under fluoroscopy without complication. NO string was attached and a cath was placed.
[2018-06-18] MEDS ORDERED: SUGAMMADEX SODIUM 500 MG/5 ML VIAL IV ONE (12:37)
[2018-06-18] MEDS ORDERED: Isovue-300 50 ML VIAL IVP ONE (12:44)
[2018-06-18] MEDS ORDERED: *HR* Propofol 200 MG/20 ML VIAL IVP ONE (13:22)
[2018-06-18] MEDS ORDERED: Lidocaine -MPF 2% 2 ML VIAL ONE (13:22)
[2018-06-18] MEDS ORDERED: *HR* Rocuronium Bromide 50 MG/5 ML VIAL ONE (13:22)
[2018-06-18] MEDS ORDERED: *HR* PHENYLEPHRINE 1,000 MCG/10 ML SYRINGE IVP ONE (13:22)
[2018-06-18] MEDS ORDERED: Ondansetron 4 MG/2 ML VIAL ONE (13:25)
[2018-06-18] MEDS ORDERED: Racepinephrine Neb 0.5 ML VIAL IH PRN (13:26)
[2018-06-18] MEDS ORDERED: Ipratropium Neb 0.5 MG NEBULIZER IH PRN (13:26)
[2018-06-18] MEDS ORDERED: *HR* HYDROmorphone (PF) 1 MG/ML SYRINGE IVP PRN (13:26)
[2018-06-18] MEDS ORDERED: Albuterol 2.5 MG/3 ML NEBULIZER IH PRN (13:26)
[2018-06-18] MEDS ORDERED: *HR* OxyCODONE Immed Rel 5 MG TABLET PO PRN (13:26)
[2018-06-18] MEDS ORDERED: Metoclopramide 10 MG/2 ML VIAL IVP PRN (13:26)
--- NOTE | 2018-06-18 15:49 | Anesthesia Evaluation Post Op ---
Date of Encounter: 06/18/18 Time of Encounter: 16:00 - Vital Signs Vital Signs: Vital Signs/O2 Sat/Glucose, Most Current Temp Pulse Resp BP Pulse Ox 06/18/18 15:42 99.3 F 104 11 103/69 91 06/18/18 15:32 103 12 105/69 91 06/18/18 15:22 101 13 104/73 91 06/18/18 15:13 12 90 06/18/18 15:12 97.7 F 112 16 112/77 90 06/18/18 15:02 109 12 113/80 90 06/18/18 14:52 110 15 112/78 89 06/18/18 14:42 98.1 F 111 16 110/79 90 06/18/18 14:32 110 16 110/73 89 06/18/18 14:22 98.1 F 113 23 111/78 90 06/18/18 14:12 115 18 109/80 91 06/18/18 14:02 112 16 120/82 92 06/18/18 13:52 100.5 F H 113 16 115/86 91 - Lungs Lungs: Clear Ascult./Percussion - Airway Airway: Non-obstructed - Cardiovascular Regular Rate - Mental Status Mental Status: Alert & Oriented, Answers Appropriately - Pain Pain Scale: 0 - Nausea Vomiting Nausea Vomiting: Not Present - Hydration Hydration: NPO - Discharge PostOp Status: Transfer Patient to floor
[2018-06-18] MEDS ORDERED: Piperacillin/Tazobactam 3.375 GM in 0.9 % Sodium Chloride Mini Bag 100 ML IVPB SCH (16:00)
[2018-06-18] MEDS ORDERED: Naloxone 0.4 MG/ML INJ IVP PRN (16:19)
[2018-06-18] MEDS ORDERED: OXYCODONE Oral CONC 10 MG/0.5 ML ORAL.SYG SL PRN (16:19)
[2018-06-18] MEDS: D5% in 0.9% NACL 1,000 ML IVC SCH (17:04)
[2018-06-18] MEDS: Piperacillin/Tazobactam 3.375 GM in 0.9 % Sodium Chloride Mini Bag 100 ML IVPB SCH (17:06)
[2018-06-18] MEDS: hydrOXYzine pamoate 25 MG CAPSULE PO SCH (20:20)
[2018-06-18] MEDS: OLANZapine 5 MG TAB.RAPDIS PO SCH (20:20)
[2018-06-19] MEDS: Piperacillin/Tazobactam 3.375 GM in 0.9 % Sodium Chloride Mini Bag 100 ML IVPB SCH ×3 (01:33→16:39)
[2018-06-19] MEDS: Levalbuterol Neb 0.63 MG/3 ML IH SCH ×4 (04:22→22:28)
[2018-06-19] MEDS: D5% in 0.9% NACL 1,000 ML IVC SCH ×2 (05:34→13:34)
[2018-06-19] MEDS: *HR* Enoxaparin 40 MG/0.4 ML SYRINGE SQ SCH (05:41)
[2018-06-19] MEDS: Insulin LISPRO 300 UNITS/3 ML VIAL SQ SCH ×3 (07:30→19:30)
[2018-06-19] MEDS ORDERED: FISH OIL 2000 MG PO SCH (09:00)
[2018-06-19] MEDS: Multivit/Ca/Min/Fe/FA 1 TAB TABLET PO SCH (09:16)
[2018-06-19] MEDS: Cholecalciferol (D-3) 1,000 UNIT TABLET PO SCH (09:17)
--- NOTE | 2018-06-19 10:03 | Urology Progress Note ---
<Juanita Alfonso Chris - Last Filed: 06/19/18 10:01> Date of Encounter: 06/19/18 Time of Encounter: 09:50 - Assessment and Plan (1) Left ureteral calculus Current Visit: Yes Status: Acute Assessment and plan: Patient is a 37-year-old male who presents with a history of a distal left ureteral stone hydronephrosis. Patient is one day status post left ureteroscopic stone extraction, left retrograde pyelogram and left ureteral stent placement. Patient is recovering well. Vital signs are stable and afebrile. White blood cell count is trending down.Renal function is within normal range. We will continue to monitor urine output. Progress Note Narrative: POD#1. Patient seen and examined sitting upright in bed in no apparent distress. Patient has reported some vague abdominal discomfort to nursing staff who feels he may be constipated. Patient has indwelling Pierre catheter that is draining dark yellow urine into bedside bag. Patient is tolerating liquids without nausea or vomiting. Objective Initial Vital Signs Temp Pulse Resp BP Pulse Ox 97.7 F 133 18 123/80 88 06/17/18 05:17 06/17/18 05:17 06/17/18 05:17 06/17/18 05:17 06/17/18 05:17 - General physical appearance Present: well developed, no distress, no pain - Respiratory Present: normal expansion, normal respiratory effort - Abdomen Present: soft, tender - Genitourinary Urine Appearance: Present: Clear - Integumentary Present: no rash, no abnormal pigmentation - Musculoskeletal Present: normal posture - Psychiatric Present: oriented to time, oriented to person, oriented to place - Labs 06/18/18 05:31 06/18/18 05:31 Consult Discharge Plan - Plan Referrals: NONE,PCP [Primary Care Provider] - <Victor Manuel Robin - Last Filed: 06/19/18 15:14> Date of Encounter: 06/19/18 - Assessment and Plan (1) Left ureteral calculus Current Visit: Yes Status: Acute Assessment and plan: agree with PA assessment. monitor cultures. will need outpatient office stent removal. Objective Initial Vital Signs Temp Pulse Resp BP Pulse Ox 97.7 F 133 18 123/80 88 06/17/18 05:17 06/17/18 05:17 06/17/18 05:17 06/17/18 05:17 06/17/18 05:17 - Labs 06/18/18 05:31 06/18/18 05:31
[2018-06-19] MEDS: OXYCODONE Oral CONC 10 MG/0.5 ML ORAL.SYG SL PRN ×2 (11:08→16:39)
[2018-06-19] MEDS: chlorproMAZINE 25 MG TABLET PO SCH ×3 (12:54→22:31)
--- NOTE | 2018-06-19 22:01 | Event Note ---
Date of Encounter: 06/19/18 Time of Encounter: 21:48 Alerted by pts. nurse LUCI Duran that the pts. abdomen was firm and distended. Pt. is status post left ureteroscopic stone extraction, left retrograde pyelogram and left ureteral stent placement. CT of the abdomen/pelvis ordered w/o contrast to assess for possible SBO. CT results show increased distention of the stomach and proximal small bowel loops, with suspected transition point, raising the question of early partial small bowel obstruction. Interval insertion of left-sided ureteral stent. There is decrease in left-sided hydronephrosis. Small stones remain in the right and left kidney. Pt. to be NPO except medications for now and monitored closely.
[2018-06-19] MEDS ORDERED: traMADol 50 MG TABLET PO ONE (22:04)
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
[2018-06-19] MEDS: hydrOXYzine pamoate 25 MG CAPSULE PO SCH (22:31)
[2018-06-19] MEDS: OLANZapine 5 MG TAB.RAPDIS PO SCH (22:31)
[2018-06-20] MEDS: Piperacillin/Tazobactam 3.375 GM in 0.9 % Sodium Chloride Mini Bag 100 ML IVPB SCH ×2 (01:00→09:58)
[2018-06-20] MEDS: D5% in 0.9% NACL 1,000 ML IVC SCH ×3 (01:01→09:10)
[2018-06-20] MEDS: Levalbuterol Neb 0.63 MG/3 ML IH SCH ×4 (03:37→21:25)
[2018-06-20] MEDS: Ondansetron 4 MG/2 ML VIAL IVP PRN ×2 (04:20→12:30)
[2018-06-20 04:43] LABS: Basophils # 0.1 K/mcL (0.0-0.2); Basophils % 0.5 %; Eosinophils # 0.1 K/mcL (0.0-0.6); Eosinophils % 1.4 %; Hematocrit 43.8 % (37.5-50.1); Immature Granulocytes % 0.3 % (0-4); Lymphocytes # 1.7 K/mcL (0.6-4.6); Lymphocytes % 16.6 %; Mean Corpuscular HGB Conc 33.6 g/dL (31.6-35.5); Mean Corpuscular Hemoglobin 29.6 pg (28.0-33.3); Mean Corpuscular Volume 88.1 fL (83.0-100.0); Monocytes % 9.2 %; Neutrophils # 7.4 K/mcL (1.6-8.9); Platelet Count 205 K/mcL (140-400); Red Blood Count 4.97 M/mcL (4.19-5.50); Red Cell Distribution Width 15.1 % (11.5-14.5)
[2018-06-20 04:49] LABS: Hemoglobin 14.7 g/dL (12.9-16.9)
[2018-06-20 05:04] LABS: BUN/Creatinine Ratio 9 (6-26); Blood Urea Nitrogen 9 mg/dL (6-20); Calcium 8.5 mg/dL (8.6-10.3); Carbon Dioxide 28 mEq/L (23-29); Chloride 108 mEq/L (98-107); Glucose 137 mg/dL (70-105); Osmolality,Calculated 297 (280-300); Potassium 3.5 mEq/L (3.5-5.1); Sodium 143 mEq/L (136-145); eGFR For Non-African Americans > 60 (> 60)
[2018-06-20] MEDS: Acetaminophen 325 MG TABLET PO PRN ×2 (05:39→17:42)
[2018-06-20] MEDS: *HR* Enoxaparin 40 MG/0.4 ML SYRINGE SQ SCH (05:39)
[2018-06-20] MEDS: 0.9 % Sodium Chloride 1,000 ML IVC SCH ×2 (09:10→09:11)
[2018-06-20] MEDS: Insulin LISPRO 300 UNITS/3 ML VIAL SQ SCH ×4 (09:12→17:31)
[2018-06-20] MEDS: Multivit/Ca/Min/Fe/FA 1 TAB TABLET PO SCH (09:54)
[2018-06-20] MEDS: Cholecalciferol (D-3) 1,000 UNIT TABLET PO SCH (09:57)
[2018-06-20] MEDS: chlorproMAZINE 25 MG TABLET PO SCH ×3 (09:58→20:06)
--- NOTE | 2018-06-20 10:07 | Urology Progress Note ---
<Juanita Alfonso N - Last Filed: 06/20/18 10:05> Date of Encounter: 06/20/18 Time of Encounter: 10:05 - Assessment and Plan (1) Left ureteral calculus Current Visit: Yes Status: Acute Assessment and plan: Patient is a 37-year-old male who is 2 days status post left ureteroscopic stone extraction, left RPG, left JJ stent placement. Vital signs are stable and afebrile. Creatinine is significantly improved. Progress Note Narrative: POD #2. Patient seen and examined sitting upright in bed in no apparent distress. Nurse at bedside. Pierre catheter is indwelling and draining scant amount of transparent light raven urine and bedside bag. Objective Initial Vital Signs Temp Pulse Resp BP Pulse Ox 97.7 F 133 18 123/80 88 06/17/18 05:17 06/17/18 05:17 06/17/18 05:17 06/17/18 05:17 06/17/18 05:17 - General physical appearance Present: well developed, no distress, no pain - Respiratory Present: normal expansion - Abdomen Present: soft, non tender - Genitourinary Urine Appearance: Present: Clear - Integumentary Present: no rash, no abnormal pigmentation - Musculoskeletal Present: normal posture - Psychiatric Present: other (patient sleeping). Absent: oriented to time, oriented to person, oriented to place, speech is normal, memory intact - Labs 06/20/18 04:21 06/20/18 04:21 Diabetes panel 06/20/18 Range/Units 04:21 Sodium 143 (136-145) mEq/L Potassium 3.5 (3.5-5.1) mEq/L Chloride 108 H (98-107) mEq/L Carbon Dioxide 28 (23-29) mEq/L BUN 9 (6-20) mg/dL Creatinine 1.03 (0.70-1.30) mg/dL Glucose 137 H (70-105) mg/dL Calcium 8.5 L (8.6-10.3) mg/dL Calcium panel 06/20/18 Range/Units 04:21 Calcium 8.5 L (8.6-10.3) mg/dL Pituitary panel 06/20/18 Range/Units 04:21 Sodium 143 (136-145) mEq/L Potassium 3.5 (3.5-5.1) mEq/L Chloride 108 H (98-107) mEq/L Carbon Dioxide 28 (23-29) mEq/L BUN 9 (6-20) mg/dL Creatinine 1.03 (0.70-1.30) mg/dL Glucose 137 H (70-105) mg/dL Calcium 8.5 L (8.6-10.3) mg/dL Adrenal panel 06/20/18 Range/Units 04:21 Sodium 143 (136-145) mEq/L Potassium 3.5 (3.5-5.1) mEq/L Chloride 108 H (98-107) mEq/L Carbon Dioxide 28 (23-29) mEq/L BUN 9 (6-20) mg/dL Creatinine 1.03 (0.70-1.30) mg/dL Glucose 137 H (70-105) mg/dL Calcium 8.5 L (8.6-10.3) mg/dL Consult Discharge Plan - Plan Referrals: NONE,PCP [Primary Care Provider] - <Victor Manuel Robin - Last Filed: 06/20/18 16:10> Date of Encounter: 06/20/18 - Assessment and Plan (1) Left ureteral calculus Current Visit: Yes Status: Acute Assessment and plan: agree with assessment by PA. ok to discharge from standpoint when stable. ok to remove cath and replace condom cath. my office will contact pt to sched ule stent removal in the office. Objective Initial Vital Signs Temp Pulse Resp BP Pulse Ox 97.7 F 133 18 123/80 88 06/17/18 05:17 06/17/18 05:17 06/17/18 05:17 06/17/18 05:17 06/17/18 05:17 - Labs 06/20/18 04:21 06/20/18 04:21 Diabetes panel 06/20/18 Range/Units 04:21 Sodium 143 (136-145) mEq/L Potassium 3.5 (3.5-5.1) mEq/L Chloride 108 H (98-107) mEq/L Carbon Dioxide 28 (23-29) mEq/L BUN 9 (6-20) mg/dL Creatinine 1.03 (0.70-1.30) mg/dL Glucose 137 H (70-105) mg/dL Calcium 8.5 L (8.6-10.3) mg/dL Calcium panel 06/20/18 Range/Units 04:21 Calcium 8.5 L (8.6-10.3) mg/dL Pituitary panel 06/20/18 Range/Units 04:21 Sodium 143 (136-145) mEq/L Potassium 3.5 (3.5-5.1) mEq/L Chloride 108 H (98-107) mEq/L Carbon Dioxide 28 (23-29) mEq/L BUN 9 (6-20) mg/dL Creatinine 1.03 (0.70-1.30) mg/dL Glucose 137 H (70-105) mg/dL Calcium 8.5 L (8.6-10.3) mg/dL Adrenal panel 06/20/18 Range/Units 04:21 Sodium 143 (136-145) mEq/L Potassium 3.5 (3.5-5.1) mEq/L Chloride 108 H (98-107) mEq/L Carbon Dioxide 28 (23-29) mEq/L BUN 9 (6-20) mg/dL Creatinine 1.03 (0.70-1.30) mg/dL Glucose 137 H (70-105) mg/dL Calcium 8.5 L (8.6-10.3) mg/dL
[2018-06-20] MEDS: Metoclopramide 10 MG/10 ML UD.LIQ PO SCH ×2 (14:12→17:41)
[2018-06-20] MEDS: D5% in 0.9% NACL w KCl 20 MEQ/1,000 ML MLS IVC SCH ×2 (14:13→23:45)
[2018-06-20] MEDS: cefTRIAXone 1,000 MG in Water for inj. (sterile) 20 ML 10 ML IVP SCH (16:08)
[2018-06-20] MEDS: OLANZapine 5 MG TAB.RAPDIS PO SCH (20:06)
[2018-06-20] MEDS: hydrOXYzine pamoate 25 MG CAPSULE PO SCH (20:07)
--- NOTE | 2018-06-20 21:18 | Internal Med Progress Note ---
Hospitalist Progress Note - Encounter Date of Encounter: 06/20/18 Time of Encounter: 19:00 - Subjective Interval History: SUBJECTIVE: The patient developed abdominal distention. It is not associated with nausea or vomiting. We did not have to put any NG tube. He is on nothing by mouth diet. OBJECTIVE: Skin: Free of rash and discoloration. ENMT: Oral/pharyngeal mucosa is normal in appearance. Eyes: Sclera is white. There is no discharge from eyes. Respiratory: Normal breath sounds; no crackles or wheezes. CV: Heart is regular; no gallop or murmur. GI: Abdomen is moderately distended. It is mildly tender in all 4 quadrants. I can hear hypoactive bowel sounds. Neuro: He has mild weakness in the right extremities. He basically does not move his left extremities at all. He has contractures in the left extremities. ADDITIONAL DATA: CT of abdomen and pelvis shows increased distention of the stomach and proximal small bowel loops with suspected transition point, raising the question of early partial small bowel obstruction. ASSESSMENT AND PLAN: Small bowel obstruction versus ileus. We will keep him on nothing by mouth diet. I will put him on scheduled IV Reglan. Urinary tract infection. It is with pansensitive E. coli. Sepsis observed at admission subsided. We will switch him from IV Zosyn to IV Rocephin. Left [place] ureter/left ureteral calculus. Those problems subsided after urological intervention. See notes from urology. Acute kidney injury subsided. This patient developed acute hypoxic respiratory failure due to sepsis/UTI. We stopped BiPAP treatments. We will continue nasal cannula oxygen. He has underlying traumatic brain injury/seizure disorder. We will continue supportive her treatments. - Exam Vitals: Temp Pulse Resp BP Pulse Ox 98.5 F 102 18 119/77 93 06/20/18 19:36 06/20/18 19:36 06/20/18 19:36 06/20/18 19:36 06/20/18 19:36 Exam: xx - Assessment and Plan (1) SBO (small bowel obstruction) Current Visit: Yes Status: Acute (2) UTI (urinary tract infection) Current Visit: Yes Status: Acute (3) Sepsis Current Visit: Yes Status: Resolved (4) Hydroureter, left Current Visit: Yes Status: Resolved (5) Left ureteral calculus Current Visit: Yes Status: Resolved (6) Acute kidney injury Current Visit: Yes Status: Resolved (7) Traumatic brain injury Current Visit: Yes Status: Chronic (8) 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 (9) Morbid obesity with BMI of 40.0-44.9, adult Current Visit: Yes Status: Chronic - Time Spent with Patient Total time spent is greater than 50% in coordination of care (as documented) at patient's floor/unit and/or counseling patient: Internal Medicine: Result - Labs CBC & Chem 7: 06/20/18 04:21 06/20/18 04:21 Labs: Short CBC 06/20/18 Range/Units 04:21 WBC 10.3 (4.3-11.1) K/mcL Hgb 14.7 D (12.9-16.9) g/dL Hct 43.8 (37.5-50.1) % Plt Count 205 (140-400) K/mcL Neutrophils # 7.4 (1.6-8.9) K/mcL BMP 06/20/18 04:21 Sodium 143 Potassium 3.5 Chloride 108 H Carbon Dioxide 28 BUN 9 Creatinine 1.03 Glucose 137 H Calcium 8.5 L - Impressions Impressions Abdomen/Pelvis CT 06/19/18 19:56 IMPRESSION: Increased distention of the stomach and proximal small bowel loops, with suspected transition point, raising the question of early partial small bowel obstruction Interval insertion of left-sided ureteral stent. There is decrease left-sided hydronephrosis. Small stones remain in the right and left kidney. D/ / Conor Pichardo MD / Conor Pichardo MD Interpreting Provider: Conor Pichardo MD Consult Discharge Plan - Plan Referrals: NONE,PCP [Primary Care Provider] - (2) UTI (urinary tract infection) Qualifiers: Urinary tract infection type: site unspecified Hematuria presence: without hematuria Qualified Code(s): N39.0 - Urinary tract infection, site not specified (3) Sepsis Qualifiers: Sepsis type: Escherichia coli, in Qualified Code(s): P36.4 - Sepsis of due to Escherichia coli (7) Traumatic brain injury Qualifiers: Encounter type: subsequent encounter Loss of consciousness presence/duration: with LOC of unspecified duration Qualified Code(s): S06.9X9D - Unspecified intracranial injury with loss of consciousness of unspecified duration, subsequent encounter
[2018-06-21] MEDS: Insulin LISPRO 300 UNITS/3 ML VIAL SQ SCH ×4 (00:41→17:58)
[2018-06-21] MEDS: Metoclopramide 10 MG/10 ML UD.LIQ PO SCH ×5 (01:28→23:42)
[2018-06-21 01:33] LABS: Basophils % 0.4 %; Eosinophils # 0.4 K/mcL (0.0-0.6); Eosinophils % 4.9 %; Hematocrit 42.1 % (37.5-50.1); Hemoglobin 14.1 g/dL (12.9-16.9); Lymphocytes # 1.6 K/mcL (0.6-4.6); Lymphocytes % 20.9 %; Mean Corpuscular HGB Conc 33.5 g/dL (31.6-35.5); Mean Corpuscular Hemoglobin 29.7 pg (28.0-33.3); Mean Corpuscular Volume 88.8 fL (83.0-100.0); Mean Platelet Volume 9.7 fL (9.4-12.4); Monocytes # 0.7 K/mcL (0.0-1.3); Monocytes % 9.5 %; Neutrophils # 4.9 K/mcL (1.6-8.9); Platelet Count 201 K/mcL (140-400); Red Blood Count 4.74 M/mcL (4.19-5.50); Red Cell Distribution Width 15.2 % (11.5-14.5); Segmented Neutrophils % 63.3 %
[2018-06-21 01:41] LABS: ABG Base Excess 5 mEq/L (-2 to 3); ABG HCO3 31 mEq/L (21-27); ABG Oxygen Saturation 83 % (95-98); ABG PCO2 48 mmHg (35-45); ABG PH 7.41 pH Units (7.32-7.45); ABG PO2 47 mmHg (85-104); ABG TCO2 32 mEq/L (20-26)
[2018-06-21 01:52] LABS: Alanine Aminotransferase 21 Units/L (7-52); Albumin 3.6 g/dL (3.5-5.7); Albumin/Globulin Ratio 1.6 (1.1-2.2); Alkaline Phosphatase 80 Units/L (34-104); Aspartate Amino Transferase 14 Units/L (13-39); BUN/Creatinine Ratio 7 (6-26); Bilirubin,Total 0.5 mg/dL (0.3-1.0); Blood Urea Nitrogen 7 mg/dL (6-20); Calcium 8.4 mg/dL (8.6-10.3); Carbon Dioxide 26 mEq/L (23-29); Chloride 109 mEq/L (98-107); Globulin 2.3 g/dL (2.4-3.5); Glucose 119 mg/dL (70-105); Osmolality,Calculated 293 (280-300); Potassium 3.3 mEq/L (3.5-5.1); Sodium 142 mEq/L (136-145); Total Protein 5.9 g/dL (6.4-8.9); eGFR For Non-African Americans > 60 (> 60)
--- NOTE | 2018-06-21 03:35 | Event Note ---
Date of Encounter: 06/21/18 Time of Encounter: 00:53 Alerted by pts. nurse LUCI Duran that the pt. was exhibiting changes in mentation. Nurse also stated that the pt. was having nystagmus-type eye movements from side to side. She reported that the pt., who was normally very vocal and talkative, was now somnolent and appeared altered. Pt. was found to have distended abdomen last night and CT of the abdomen/pelvis revealed increased distention of the stomach and proximal small bowel loops with suspected transition point, raising the question of early partial small bowel obstruction. Interval insertion of left-sided ureteral stent w/decrease in left- sided hydronephrosis. Small stones remain in the right and left kidney. Pt. was made NPO except medications last night d/t suspected SBO. Alerted Dr. Munson who went to see pt. I went to see pt. as well. Pt. was in bed and staring straight ahead w/minimal responses. 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 Pt. was admitted w/severe sepsis secondary to complicated UTI and KAYLEN w/obstructive uropathy. WBC had improved from 24.3 on 06/17 to 7/8 yesterday. There was no facial droop or other visible signs which would suggest an acute infarct. Stat CT of the head/brain was ordered as well as stat ABG, CBC, CMP, lactic acid, and ammonia level. ABG results: 7.41 pH, pCO2 48, pO2 47, HCO3 31, Total CO2 32, O2 saturation 83, and base excess 5. Ammonia 48. Lactic 0.6. CT of the head/brain showed mild ventriculomegaly. Otherwise no acute intracranial abnormality detected. Pt. is currently on several antipsychotic medications and nurses report that he has not been sleeping at night. These factors, combined w/current infection, may have contributed to change in mentation. Consider adding MRI of the head/brain in the a.m. if mentation does not improve. Pt. to be monitored very closely for neurologic or mentation changes overnight.
[2018-06-21] MEDS: Levalbuterol Neb 0.63 MG/3 ML IH SCH ×4 (04:03→22:29)
[2018-06-21] MEDS: D5% in 0.9% NACL w KCl 20 MEQ/1,000 ML MLS IVC SCH ×3 (07:07→23:37)
[2018-06-21] MEDS: *HR* Enoxaparin 40 MG/0.4 ML SYRINGE SQ SCH (07:39)
[2018-06-21] MEDS: Multivit/Ca/Min/Fe/FA 1 TAB TABLET PO SCH (10:16)
[2018-06-21] MEDS: Cholecalciferol (D-3) 1,000 UNIT TABLET PO SCH (10:17)
[2018-06-21] MEDS: chlorproMAZINE 25 MG TABLET PO SCH ×3 (10:21→20:40)
[2018-06-21] MEDS ORDERED: Potassium Chloride 40 MEQ, Lidocaine 1% 2 ML in D5% in Water 500 ML IVPB ONE (11:21)
--- NOTE | 2018-06-21 15:18 | Internal Med Progress Note ---
Hospitalist Progress Note - Encounter Date of Encounter: 06/21/18 Time of Encounter: 15:00 - Subjective Interval History: SUBJECTIVE: The patient developed altered mental status last night; did not answer our questions/did not follow our commands. He seems to be okay today. He remembers my first name. He knows that he is in [facility]. His abdominal distention has significantly decreased. He did remains mild/moderate. It is associated with no significant pain. He denies nausea and vomiting. He is on nothing by mouth diet; he does not have NG tube inserted. OBJECTIVE: Skin: Free of rash and discoloration. ENMT: Oral/pharyngeal mucosa is normal in appearance. Eyes: Sclera is white. There is no discharge from eyes. Respiratory: Normal breath sounds; no crackles or wheezes. CV: Heart is regular; no gallop or murmur. GI: Abdomen is moderately distended. It is mildly tender in all 4 quadrants. I can hear hypoactive bowel sounds. Neuro: He has mild weakness in the right extremities. He basically does not move his left extremities at all. He has contractures in the left extremities. ADDITIONAL DATA: CT of head/brain done last night shows mild ventriculomegaly. Otherwise he did not show any abnormalities. KUB from today showed dilated patient of small bowel loops in the left side of the abdomen suggesting partial obstruction versus ileus. CBC shows hemoglobin of 14.1 with WBC of 7.8 thousand. BMP shows potassium of 3.3; 3.5 yesterday. Creatinine is 0.96. ASSESSMENT AND PLAN: Small bowel obstruction versus ileus. We will keep him on nothing by mouth diet. He is on scheduled IV Reglan. We will keep him on IV fluids with potassium chloride. Urinary tract infection. It is with pansensitive E. coli. Sepsis observed at admission subsided. We will switch him from IV Zosyn to IV Rocephin. Left [place] ureter/left ureteral calculus. Those problems subsided after urological intervention. See notes from urology. Acute kidney injury subsided. This patient developed acute hypoxic respiratory failure due to sepsis/UTI. We stopped BiPAP treatments. We will continue nasal cannula oxygen. He has underlying traumatic brain injury/seizure disorder. We will continue supportive treatments. - Exam Vitals: Temp Pulse Resp BP Pulse Ox 98.6 F 88 15 141/91 94 06/21/18 11:30 06/21/18 11:30 06/21/18 11:30 06/21/18 11:30 06/21/18 11:30 Exam: xx - Assessment and Plan (1) SBO (small bowel obstruction) Current Visit: Yes Status: Acute (2) UTI (urinary tract infection) Current Visit: Yes Status: Acute (3) Sepsis Current Visit: Yes Status: Resolved (4) Hydroureter, left Current Visit: Yes Status: Resolved (5) Left ureteral calculus Current Visit: Yes Status: Resolved (6) Acute kidney injury Current Visit: Yes Status: Resolved (7) Traumatic brain injury Current Visit: Yes Status: Chronic (8) 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 (9) Morbid obesity with BMI of 40.0-44.9, adult Current Visit: Yes Status: Chronic - Time Spent with Patient Total time spent is greater than 50% in coordination of care (as documented) at patient's floor/unit and/or counseling patient: 25 - 35 minutes Plan of Care Discussed with: patient Internal Medicine: Result - Labs CBC & Chem 7: 06/21/18 01:21 06/21/18 01:21 Labs: Short CBC 06/21/18 Range/Units 01:21 WBC 7.8 (4.3-11.1) K/mcL Hgb 14.1 (12.9-16.9) g/dL Hct 42.1 (37.5-50.1) % Plt Count 201 (140-400) K/mcL Neutrophils # 4.9 (1.6-8.9) K/mcL BMP 06/21/18 01:21 Sodium 142 Potassium 3.3 L Chloride 109 H Carbon Dioxide 26 BUN 7 Creatinine 0.96 Glucose 119 H Calcium 8.4 L Liver Function 06/21/18 Range/Units 01:21 Total Bilirubin 0.5 (0.3-1.0) mg/dL AST 14 (13-39) Units/L ALT 21 (7-52) Units/L Alkaline Phosphatase 80 (34-104) Units/L Albumin 3.6 (3.5-5.7) g/dL - ABG Interpretation ABG results: ABG ABG pH 7.41 pH Units (7.32-7.45) 06/21/18 01:34 ABG pCO2 48 mmHg (35-45) H 06/21/18 01:34 ABG pO2 47 mmHg (85-104) L* 06/21/18 01:34 ABG O2 Saturation 83 % (95-98) L 06/21/18 01:34 - Impressions Impressions Head CT 06/21/18 01:03 IMPRESSION: Mild ventriculomegaly. Otherwise, no acute intracranial abnormality detected. D/ / Bernardo Alexandre MD / Bernardo Alexandre MD Interpreting Provider: Bernardo Alexandre MD X-Ray 06/21/18 10:59 IMPRESSION: Dilatation of small-bowel loops in the left side of the abdomen suggesting partial obstruction versus ileus. Double-J stent in the left collecting system. Follow up is suggested. D/ / 06/21/2018 14:34:13 [facility] MD [facility] Provider: Emma Dixon MD Consult Discharge Plan - Plan Referrals: NONE,PCP [Primary Care Provider] - (2) UTI (urinary tract infection) Qualifiers: Urinary tract infection type: site unspecified Hematuria presence: without hematuria Qualified Code(s): N39.0 - Urinary tract infection, site not specified (3) Sepsis Qualifiers: Sepsis type: Escherichia coli, in Qualified Code(s): P36.4 - Sepsis of due to Escherichia coli (7) Traumatic brain injury Qualifiers: Encounter type: subsequent encounter Loss of consciousness presence/duration: with LOC of unspecified duration Qualified Code(s): S06.9X9D - Unspecified intracranial injury with loss of consciousness of unspecified duration, subsequent encounter
[2018-06-21] MEDS: cefTRIAXone 1,000 MG in Water for inj. (sterile) 20 ML 10 ML IVP SCH (15:31)
[2018-06-21] MEDS: hydrOXYzine pamoate 25 MG CAPSULE PO SCH (20:40)
[2018-06-21] MEDS: OLANZapine 5 MG TAB.RAPDIS PO SCH (20:40)
[2018-06-21] MEDS: Acetaminophen 325 MG TABLET PO PRN (22:31)
[2018-06-22] MEDS: Insulin LISPRO 300 UNITS/3 ML VIAL SQ SCH ×4 (01:03→20:46)
[2018-06-22] MEDS: Levalbuterol Neb 0.63 MG/3 ML IH SCH ×4 (03:41→22:33)
[2018-06-22 04:42] LABS: Basophils # 0.1 K/mcL (0.0-0.2); Basophils % 0.6 %; Eosinophils # 0.4 K/mcL (0.0-0.6); Eosinophils % 4.4 %; Hematocrit 39.6 % (37.5-50.1); Hemoglobin 13.3 g/dL (12.9-16.9); Immature Granulocytes % 1.6 % (0-4); Immature Platelets 3.4 % (1.1-6.1); Lymphocytes # 1.7 K/mcL (0.6-4.6); Lymphocytes % 20.7 %; Mean Corpuscular HGB Conc 33.6 g/dL (31.6-35.5); Mean Corpuscular Hemoglobin 29.8 pg (28.0-33.3); Mean Corpuscular Volume 88.8 fL (83.0-100.0); Mean Platelet Volume 9.8 fL (9.4-12.4); Monocytes # 0.6 K/mcL (0.0-1.3); Monocytes % 6.8 %; Neutrophils # 5.5 K/mcL (1.6-8.9); Platelet Count 199 K/mcL (140-400); Red Blood Count 4.46 M/mcL (4.19-5.50); Red Cell Distribution Width 14.9 % (11.5-14.5); Segmented Neutrophils % 65.9 %
[2018-06-22 05:06] LABS: Alanine Aminotransferase 12 Units/L (7-52); Albumin 2.1 g/dL (3.5-5.7); Albumin/Globulin Ratio 1.5 (1.1-2.2); Alkaline Phosphatase 46 Units/L (34-104); Aspartate Amino Transferase 11 Units/L (13-39); BUN/Creatinine Ratio 7 (6-26); Bilirubin,Total 0.3 mg/dL (0.3-1.0); Blood Urea Nitrogen 3 mg/dL (6-20); Carbon Dioxide 18 mEq/L (23-29); Chloride 123 mEq/L (98-107); Globulin 1.4 g/dL (2.4-3.5); Glucose 67 mg/dL (70-105); Osmolality,Calculated 295 (280-300); Potassium 2.4 mEq/L (3.5-5.1); Sodium 145 mEq/L (136-145); Total Protein 3.5 g/dL (6.4-8.9); eGFR For Non-African Americans > 60 (> 60)
[2018-06-22] MEDS: *HR* Enoxaparin 40 MG/0.4 ML SYRINGE SQ SCH (05:56)
[2018-06-22] MEDS: Metoclopramide 10 MG/10 ML UD.LIQ PO SCH ×3 (05:56→17:44)
[2018-06-22 07:22] LABS: Alanine Aminotransferase 22 Units/L (7-52); Albumin 3.5 g/dL (3.5-5.7); Albumin/Globulin Ratio 1.5 (1.1-2.2); Alkaline Phosphatase 71 Units/L (34-104); Aspartate Amino Transferase 23 Units/L (13-39); BUN/Creatinine Ratio 6 (6-26); Bilirubin,Total 0.5 mg/dL (0.3-1.0); Blood Urea Nitrogen 5 mg/dL (6-20); Calcium 8.2 mg/dL (8.6-10.3); Carbon Dioxide 25 mEq/L (23-29); Chloride 110 mEq/L (98-107); Globulin 2.3 g/dL (2.4-3.5); Glucose 112 mg/dL (70-105); Osmolality,Calculated 290 (280-300); Sodium 141 mEq/L (136-145); Total Protein 5.8 g/dL (6.4-8.9); eGFR For Non-African Americans > 60 (> 60)
[2018-06-22] MEDS: chlorproMAZINE 25 MG TABLET PO SCH ×3 (09:08→20:41)
[2018-06-22] MEDS: Multivit/Ca/Min/Fe/FA 1 TAB TABLET PO SCH (09:08)
[2018-06-22] MEDS: Cholecalciferol (D-3) 1,000 UNIT TABLET PO SCH (09:08)
[2018-06-22] MEDS: D5% in 0.9% NACL w KCl 20 MEQ/1,000 ML MLS IVC SCH ×2 (09:56→17:58)
--- NOTE | 2018-06-22 12:42 | Internal Med Progress Note ---
Hospitalist Progress Note - Encounter Date of Encounter: 06/22/18 Time of Encounter: 12:30 - Subjective Interval History: SUBJECTIVE: The patient is not voicing any particular problems. Denies abdominal pain, nausea and vomiting. He does not report to me flatus and bowel movements. He is on clear liquids. He denies chest pain. He denies difficulty breathing, coughing and wheezing. He makes good amounts of urine. OBJECTIVE: Skin: Free of rash and discoloration. ENMT: Oral/pharyngeal mucosa is normal in appearance. Eyes: Sclera is white. There is no discharge from eyes. Respiratory: Normal breath sounds; no crackles or wheezes. CV: Heart is regular; no gallop or murmur. GI: Abdomen is moderately distended. It is not as firm as it was yesterday. It is mildly tender in all 4 quadrants. I can hear hypoactive bowel sounds. Neuro: He has mild weakness in the right extremities. He basically does not move his left extremities at all. He has contractures in the left extremities. ADDITIONAL DATA: CBC is normal. BMP shows potassium 4.0; 3.3 yesterday. The rest of electrolytes is normal. Creatinine is 0.81. KUB from yesterday shows a dilated patient of small bowel loops in the left side of the abdomen suggesting partial obstruction versus ileus. ASSESSMENT AND PLAN: Small bowel obstruction versus ileus. We will keep him on clear liquids. He is on scheduled IV Reglan. He gets potassium chloride in IV fluids. Urinary tract infection. It is with pansensitive E. coli. Sepsis observed at admission subsided. He is on IV Rocephin. Left [place] ureter/left ureteral calculus. Those problems subsided after urological intervention. See notes from urology. Acute kidney injury subsided. This patient developed acute hypoxic respiratory failure due to sepsis/UTI. We stopped BiPAP treatments. We will continue nasal cannula oxygen. He has underlying traumatic brain injury/seizure disorder. We will continue supportive treatments. - Exam Vitals: Temp Pulse Resp BP Pulse Ox 96.8 F L 75 15 121/83 95 06/22/18 11:29 06/22/18 11:29 06/22/18 10:44 06/22/18 11:29 06/22/18 11:29 Exam: x - Assessment and Plan (1) SBO (small bowel obstruction) Current Visit: Yes Status: Acute (2) UTI (urinary tract infection) Current Visit: Yes Status: Acute (3) Sepsis Current Visit: Yes Status: Resolved (4) Hydroureter, left Current Visit: Yes Status: Resolved (5) Left ureteral calculus Current Visit: Yes Status: Resolved (6) Acute kidney injury Current Visit: Yes Status: Resolved (7) Traumatic brain injury Current Visit: Yes Status: Chronic (8) 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 (9) Morbid obesity with BMI of 40.0-44.9, adult Current Visit: Yes Status: Chronic - Time Spent with Patient Total time spent is greater than 50% in coordination of care (as documented) at patient's floor/unit and/or counseling patient: 25 - 35 minutes Plan of Care Discussed with: patient Internal Medicine: Result - Labs CBC & Chem 7: 06/22/18 04:00 06/22/18 06:16 Labs: Short CBC 06/22/18 Range/Units 04:00 WBC 8.4 (4.3-11.1) K/mcL Hgb 13.3 (12.9-16.9) g/dL Hct 39.6 (37.5-50.1) % Plt Count 199 (140-400) K/mcL Neutrophils # 5.5 (1.6-8.9) K/mcL BMP 06/22/18 06/22/18 04:00 06:16 Sodium 145 141 Potassium 2.4 L* 4.0 D Chloride 123 H 110 H Carbon Dioxide 18 L 25 BUN 3 L 5 L Creatinine 0.45 L 0.81 Glucose 67 L 112 H Calcium 5.0 L* 8.2 L Liver Function 06/22/18 06/22/18 Range/Units 04:00 06:16 Total Bilirubin 0.3 0.5 (0.3-1.0) mg/dL AST 11 L 23 (13-39) Units/L ALT 12 22 (7-52) Units/L Alkaline Phosphatase 46 71 (34-104) Units/L Albumin 2.1 L 3.5 (3.5-5.7) g/dL - ABG Interpretation ABG results: ABG ABG pH 7.41 pH Units (7.32-7.45) 06/21/18 01:34 ABG pCO2 48 mmHg (35-45) H 06/21/18 01:34 ABG pO2 47 mmHg (85-104) L* 06/21/18 01:34 ABG O2 Saturation 83 % (95-98) L 06/21/18 01:34 - Impressions Impressions KUB X-Ray 06/21/18 10:59 IMPRESSION: Dilatation of small-bowel loops in the left side of the abdomen suggesting partial obstruction versus ileus. Double-J stent in the left collecting system. Follow up is suggested. D/ / 06/21/2018 14:34:13 Emma Dixon MD / [facility] Interpreting Provider: Emma Dixon MD Consult Discharge Plan - Plan Referrals: NONE,PCP [Primary Care Provider] - (2) UTI (urinary tract infection) Qualifiers: Urinary tract infection type: site unspecified Hematuria presence: without hematuria Qualified Code(s): N39.0 - Urinary tract infection, site not specified (3) Sepsis Qualifiers: Sepsis type: Escherichia coli, in Qualified Code(s): P36.4 - Sepsis of due to Escherichia coli (7) Traumatic brain injury Qualifiers: Encounter type: subsequent encounter Loss of consciousness presence/duration: with LOC of unspecified duration Qualified Code(s): S06.9X9D - Unspecified intracranial injury with loss of consciousness of unspecified duration, subsequent encounter
[2018-06-22] MEDS: Acetaminophen 325 MG TABLET PO PRN (15:22)
[2018-06-22] MEDS: cefTRIAXone 1,000 MG in Water for inj. (sterile) 20 ML 10 ML IVP SCH (17:44)
[2018-06-22] MEDS: hydrOXYzine pamoate 25 MG CAPSULE PO SCH (20:41)
[2018-06-22] MEDS: OLANZapine 5 MG TAB.RAPDIS PO SCH (20:41)
[2018-06-23] MEDS: Metoclopramide 10 MG/10 ML UD.LIQ PO SCH ×4 (00:11→18:03)
[2018-06-23] MEDS: Insulin LISPRO 300 UNITS/3 ML VIAL SQ SCH ×4 (00:26→18:04)
[2018-06-23] MEDS: D5% in 0.9% NACL w KCl 20 MEQ/1,000 ML MLS IVC SCH ×2 (02:03→10:06)
[2018-06-23] MEDS: Levalbuterol Neb 0.63 MG/3 ML IH SCH ×4 (03:39→23:07)
[2018-06-23] MEDS: *HR* Enoxaparin 40 MG/0.4 ML SYRINGE SQ SCH (05:21)
[2018-06-23 05:35] LABS: Basophils # 0.1 K/mcL (0.0-0.2); Basophils % 1.1 %; Eosinophils # 0.3 K/mcL (0.0-0.6); Eosinophils % 3.2 %; Hematocrit 43.4 % (37.5-50.1); Hemoglobin 14.6 g/dL (12.9-16.9); Immature Granulocytes % 2.5 % (0-4); Lymphocytes # 1.8 K/mcL (0.6-4.6); Lymphocytes % 17.2 %; Mean Corpuscular HGB Conc 33.6 g/dL (31.6-35.5); Mean Corpuscular Hemoglobin 29.4 pg (28.0-33.3); Mean Corpuscular Volume 87.5 fL (83.0-100.0); Mean Platelet Volume 9.6 fL (9.4-12.4); Monocytes # 0.6 K/mcL (0.0-1.3); Monocytes % 5.5 %; Neutrophils # 7.2 K/mcL (1.6-8.9); Platelet Count 215 K/mcL (140-400); Red Blood Count 4.96 M/mcL (4.19-5.50); Red Cell Distribution Width 14.8 % (11.5-14.5); Segmented Neutrophils % 70.5 %
[2018-06-23 05:50] LABS: Alanine Aminotransferase 43 Units/L (7-52); Albumin 3.8 g/dL (3.5-5.7); Albumin/Globulin Ratio 1.7 (1.1-2.2); Alkaline Phosphatase 90 Units/L (34-104); Aspartate Amino Transferase 32 Units/L (13-39); BUN/Creatinine Ratio 7 (6-26); Bilirubin,Total 0.4 mg/dL (0.3-1.0); Blood Urea Nitrogen 5 mg/dL (6-20); Calcium 8.4 mg/dL (8.6-10.3); Carbon Dioxide 24 mEq/L (23-29); Chloride 110 mEq/L (98-107); Globulin 2.3 g/dL (2.4-3.5); Glucose 108 mg/dL (70-105); Osmolality,Calculated 288 (280-300); Potassium 3.5 mEq/L (3.5-5.1); Sodium 140 mEq/L (136-145); Total Protein 6.1 g/dL (6.4-8.9); eGFR For Non-African Americans > 60 (> 60)
[2018-06-23] MEDS: Multivit/Ca/Min/Fe/FA 1 TAB TABLET PO SCH (08:31)
[2018-06-23] MEDS: Cholecalciferol (D-3) 1,000 UNIT TABLET PO SCH (08:32)
[2018-06-23] MEDS: chlorproMAZINE 25 MG TABLET PO SCH ×3 (08:32→21:20)
[2018-06-23] MEDS: cefTRIAXone 1,000 MG in Water for inj. (sterile) 20 ML 10 ML IVP SCH (15:03)
--- NOTE | 2018-06-23 16:12 | Internal Med Progress Note ---
Hospitalist Progress Note - Encounter Date of Encounter: 06/23/18 Time of Encounter: 11:00 - Subjective Interval History: SUBJECTIVE: The patient feels pretty good. Denies abdominal pain, nausea and vomiting. He is passing gas at times; started several hours ago. He had a few small amount or liquid bowel movements very recently. Pierre catheter is inserted. It is draining good amounts of urine. Hematuria has cleared. He denies chest pain. He denies difficulty breathing, coughing and wheezing. OBJECTIVE: Skin: Free of rash and discoloration. ENMT: Oral/pharyngeal mucosa is normal in appearance. Eyes: Sclera is white. There is no discharge from eyes. Respiratory: Normal breath sounds; no crackles or wheezes. CV: Heart is regular; no gallop or murmur. GI: Abdomen is moderately distended. It is not as firm as it was yesterday. It is mildly tender in all 4 quadrants. I can hear hypoactive bowel sounds. Neuro: He has mild weakness in the right extremities. He basically does not move his left extremities at all. He has contractures in the left extremities. ADDITIONAL DATA: Potassium is 3.5; 4.0 yesterday. His creatinine is 0.73. ASSESSMENT AND PLAN: Small bowel obstruction versus ileus. Seems to be doing better. We will adva nce his clear liquids to full liquids. There is no need for IV fluids at this time. Hypokalemia. I will substitute potassium chloride in IV fluids with oral potassium chloride. Urinary tract infection. It is with pansensitive E. coli. Sepsis observed at admission subsided. He is on IV Rocephin. Left [place] ureter/left ureteral calculus. Those problems subsided after urological intervention. See notes from urology. Acute kidney injury subsided. This patient developed acute hypoxic respiratory failure due to sepsis/UTI. We stopped BiPAP treatments. We will continue nasal cannula oxygen. He has underlying traumatic brain injury/seizure disorder. We will continue supportive treatments. - Exam Vitals: Temp Pulse Resp BP Pulse Ox 98.1 F 76 16 111/76 93 06/23/18 15:21 06/23/18 15:21 06/23/18 15:50 06/23/18 15:21 06/23/18 15:50 Exam: xx - Assessment and Plan (1) SBO (small bowel obstruction) Current Visit: Yes Status: Acute (2) Hypokalemia Current Visit: Yes Status: Acute (3) UTI (urinary tract infection) Current Visit: Yes Status: Acute (4) Sepsis Current Visit: Yes Status: Resolved (5) Hydroureter, left Current Visit: Yes Status: Resolved (6) Left ureteral calculus Current Visit: Yes Status: Resolved (7) Acute kidney injury Current Visit: Yes Status: Resolved (8) Traumatic brain injury Current Visit: Yes Status: Chronic (9) 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 (10) Morbid obesity with BMI of 40.0-44.9, adult Current Visit: Yes Status: Chronic - Time Spent with Patient Total time spent is greater than 50% in coordination of care (as documented) at patient's floor/unit and/or counseling patient: 25 - 35 minutes Plan of Care Discussed with: patient Internal Medicine: Result - Labs CBC & Chem 7: 06/23/18 05:17 06/23/18 05:17 Labs: Short CBC 06/23/18 Range/Units 05:17 WBC 10.2 (4.3-11.1) K/mcL Hgb 14.6 (12.9-16.9) g/dL Hct 43.4 (37.5-50.1) % Plt Count 215 (140-400) K/mcL Neutrophils # 7.2 (1.6-8.9) K/mcL BMP 06/23/18 05:17 Sodium 140 Potassium 3.5 Chloride 110 H Carbon Dioxide 24 BUN 5 L Creatinine 0.73 Glucose 108 H Calcium 8.4 L Liver Function 06/23/18 Range/Units 05:17 Total Bilirubin 0.4 (0.3-1.0) mg/dL AST 32 (13-39) Units/L ALT 43 (7-52) Units/L Alkaline Phosphatase 90 (34-104) Units/L Albumin 3.8 (3.5-5.7) g/dL - ABG Interpretation ABG results: ABG ABG pH 7.41 pH Units (7.32-7.45) 06/21/18 01:34 ABG pCO2 48 mmHg (35-45) H 06/21/18 01:34 ABG pO2 47 mmHg (85-104) L* 06/21/18 01:34 ABG O2 Saturation 83 % (95-98) L 06/21/18 01:34 Consult Discharge Plan - Plan Referrals: NONE,PCP [Primary Care Provider] - (3) UTI (urinary tract infection) Qualifiers: Urinary tract infection type: site unspecified Hematuria presence: without hematuria Qualified Code(s): N39.0 - Urinary tract infection, site not specified (4) Sepsis Qualifiers: Sepsis type: Escherichia coli, in Qualified Code(s): P36.4 - Sepsis of due to Escherichia coli (8) Traumatic brain injury Qualifiers: Encounter type: subsequent encounter Loss of consciousness presence/duration: with LOC of unspecified duration Qualified Code(s): S06.9X9D - Unspecified intracranial injury with loss of consciousness of unspecified duration, subsequent encounter
[2018-06-23] MEDS: Acetaminophen 325 MG TABLET PO PRN (18:03)
[2018-06-23] MEDS: OLANZapine 5 MG TAB.RAPDIS PO SCH (21:20)
[2018-06-23] MEDS: hydrOXYzine pamoate 25 MG CAPSULE PO SCH (21:20)
[2018-06-24] MEDS: Insulin LISPRO 300 UNITS/3 ML VIAL SQ SCH ×4 (00:12→18:21)
[2018-06-24] MEDS: Metoclopramide 10 MG/10 ML UD.LIQ PO SCH ×2 (00:12→05:41)
[2018-06-24] MEDS: Levalbuterol Neb 0.63 MG/3 ML IH SCH ×4 (03:35→22:30)
[2018-06-24] MEDS: *HR* Enoxaparin 40 MG/0.4 ML SYRINGE SQ SCH (05:41)
[2018-06-24 06:00] LABS: Basophils # 0.1 K/mcL (0.0-0.2); Basophils % 0.9 %; Eosinophils # 0.4 K/mcL (0.0-0.6); Eosinophils % 3.2 %; Hemoglobin 16.1 g/dL (12.9-16.9); Lymphocytes # 2.2 K/mcL (0.6-4.6); Lymphocytes % 18.5 %; Mean Corpuscular HGB Conc 32.9 g/dL (31.6-35.5); Mean Corpuscular Hemoglobin 29.4 pg (28.0-33.3); Mean Corpuscular Volume 89.4 fL (83.0-100.0); Mean Platelet Volume 10.2 fL (9.4-12.4); Monocytes # 0.7 K/mcL (0.0-1.3); Monocytes % 5.4 %; Neutrophils # 8.3 K/mcL (1.6-8.9); Platelet Count 229 K/mcL (140-400); Red Blood Count 5.48 M/mcL (4.19-5.50); Red Cell Distribution Width 14.9 % (11.5-14.5)
[2018-06-24 06:18] LABS: Alanine Aminotransferase 78 Units/L (7-52); Albumin 4.4 g/dL (3.5-5.7); Albumin/Globulin Ratio 1.6 (1.1-2.2); Alkaline Phosphatase 110 Units/L (34-104); Aspartate Amino Transferase 54 Units/L (13-39); BUN/Creatinine Ratio 8 (6-26); Bilirubin,Total 0.5 mg/dL (0.3-1.0); Blood Urea Nitrogen 7 mg/dL (6-20); Calcium 9.5 mg/dL (8.6-10.3); Carbon Dioxide 22 mEq/L (23-29); Chloride 108 mEq/L (98-107); Globulin 2.7 g/dL (2.4-3.5); Glucose 92 mg/dL (70-105); Osmolality,Calculated 284 (280-300); Potassium 4.2 mEq/L (3.5-5.1); Sodium 138 mEq/L (136-145); Total Protein 7.1 g/dL (6.4-8.9); eGFR For Non-African Americans > 60 (> 60)
[2018-06-24] MEDS: Cholecalciferol (D-3) 1,000 UNIT TABLET PO SCH (09:31)
[2018-06-24] MEDS: chlorproMAZINE 25 MG TABLET PO SCH ×3 (09:31→22:14)
[2018-06-24] MEDS: Multivit/Ca/Min/Fe/FA 1 TAB TABLET PO SCH (09:31)
[2018-06-24] MEDS: Desitin (Zinc Oxide) 56 GM TUBE TP SCH ×2 (12:58→22:14)
[2018-06-24] MEDS: cefTRIAXone 1,000 MG in Water for inj. (sterile) 20 ML 10 ML IVP SCH (15:59)
[2018-06-24] MEDS: Acetaminophen 325 MG TABLET PO PRN (22:13)
[2018-06-24] MEDS: OLANZapine 5 MG TAB.RAPDIS PO SCH (22:13)
[2018-06-24] MEDS: hydrOXYzine pamoate 25 MG CAPSULE PO SCH (22:13)
--- NOTE | 2018-06-24 22:26 | Internal Med Progress Note ---
Hospitalist Progress Note - Encounter Date of Encounter: 06/24/18 Time of Encounter: 19:00 - Subjective Interval History: SUBJECTIVE: The patient is not showing any distress. He has had multiple liquid bowel movements recently. Not associated with any abdominal pain, nausea or vomiting. We have not seen any blood coming from his rectum. He is on full liquids diet. However, he eats very little (has no appetite). Pierre catheter is inserted. It is draining good amounts of urine. Hematuria has cleared. He denies chest pain. He denies difficulty breathing, coughing and wheezing. OBJECTIVE: Skin: He has a pretty big area of redness on his buttocks, resulting from action of liquid stool on his skin. ENMT: Oral/pharyngeal mucosa is normal in appearance. Eyes: Sclera is white. There is no discharge from eyes. Respiratory: Normal breath sounds; no crackles or wheezes. CV: Heart is regular; no gallop or murmur. GI: Abdomen is moderately distended. It is not as firm as it was yesterday. It is mildly tender in all 4 quadrants. I can hear hypoactive bowel sounds. Neuro: He has mild weakness in the right extremities. He basically does not move his left extremities at all. He has contractures in the left extremities. ADDITIONAL DATA: Hemoglobin 16.1; 14.6 yesterday. WBC is 12.0 thousand; 10.2 thousand yesterday. He has normal electrolytes. His creatinine is 0.87. His hepatic panel is about normal. ASSESSMENT AND PLAN: Small bowel obstruction versus ileus. He has developed liquid bowel movements. We will stop her IV Reglan. We will check his stool for C. difficile. KUB in the morning. Hypokalemia. Basically subsided after getting him on oral potassium chloride. Urinary tract infection. It is with pansensitive E. coli. Sepsis observed at admission subsided. He is on IV Rocephin. Left [place] ureter/left ureteral calculus. Those problems subsided after urological intervention. See notes from urology. Acute kidney injury subsided. This patient developed acute hypoxic respiratory failure due to sepsis/UTI. We stopped BiPAP treatments. He is on 2 L/min nasal cannula oxygen. He has underlying traumatic brain injury/seizure disorder. We will continue supportive treatments. - Exam Vitals: Temp Pulse Resp BP Pulse Ox 98.5 F 100 17 102/72 92 06/24/18 19:43 06/24/18 19:43 06/24/18 19:43 06/24/18 19:43 06/24/18 19:43 Exam: xx - Assessment and Plan (1) SBO (small bowel obstruction) Current Visit: Yes Status: Acute (2) Hypokalemia Current Visit: Yes Status: Acute (3) UTI (urinary tract infection) Current Visit: Yes Status: Acute (4) Sepsis Current Visit: Yes Status: Resolved (5) Hydroureter, left Current Visit: Yes Status: Resolved (6) Left ureteral calculus Current Visit: Yes Status: Resolved (7) Acute kidney injury Current Visit: Yes Status: Resolved (8) Traumatic brain injury Current Visit: Yes Status: Chronic (9) 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 (10) Morbid obesity with BMI of 40.0-44.9, adult Current Visit: Yes Status: Chronic - Time Spent with Patient Total time spent is greater than 50% in coordination of care (as documented) at patient's floor/unit and/or counseling patient: 25 - 35 minutes Plan of Care Discussed with: patient Internal Medicine: Result - Labs CBC & Chem 7: 06/24/18 05:27 06/24/18 05:27 Labs: Short CBC 06/24/18 Range/Units 05:27 WBC 12.0 H (4.3-11.1) K/mcL Hgb 16.1 D (12.9-16.9) g/dL Hct 49.0 (37.5-50.1) % Plt Count 229 (140-400) K/mcL Neutrophils # 8.3 (1.6-8.9) K/mcL BMP 06/24/18 05:27 Sodium 138 Potassium 4.2 Chloride 108 H Carbon Dioxide 22 L BUN 7 Creatinine 0.87 Glucose 92 Calcium 9.5 Liver Function 06/24/18 Range/Units 05:27 Total Bilirubin 0.5 (0.3-1.0) mg/dL AST 54 H (13-39) Units/L ALT 78 H (7-52) Units/L Alkaline Phosphatase 110 H (34-104) Units/L Albumin 4.4 (3.5-5.7) g/dL - ABG Interpretation ABG results: ABG ABG pH 7.41 pH Units (7.32-7.45) 06/21/18 01:34 ABG pCO2 48 mmHg (35-45) H 06/21/18 01:34 ABG pO2 47 mmHg (85-104) L* 06/21/18 01:34 ABG O2 Saturation 83 % (95-98) L 06/21/18 01:34 Consult Discharge Plan - Plan Referrals: NONE,PCP [Primary Care Provider] - (3) UTI (urinary tract infection) Qualifiers: Urinary tract infection type: site unspecified Hematuria presence: without hematuria Qualified Code(s): N39.0 - Urinary tract infection, site not specified (4) Sepsis Qualifiers: Sepsis type: Escherichia coli, in Qualified Code(s): P36.4 - Sepsis of due to Escherichia coli (8) Traumatic brain injury Qualifiers: Encounter type: subsequent encounter Loss of consciousness presence/duration: with LOC of unspecified duration Qualified Code(s): S06.9X9D - Unspecified intracranial injury with loss of consciousness of unspecified duration, subsequent encounter
[2018-06-25] MEDS: Insulin LISPRO 300 UNITS/3 ML VIAL SQ SCH ×5 (01:00→23:23)
[2018-06-25] MEDS ORDERED: OXYCODONE Oral CONC 10 MG/0.5 ML ORAL.SYG SL ONE (01:09)
[2018-06-25] MEDS: Levalbuterol Neb 0.63 MG/3 ML IH SCH ×4 (03:23→21:50)
[2018-06-25 04:52] LABS: Basophils # 0.2 K/mcL (0.0-0.2); Basophils % 1.1 %; Eosinophils # 0.4 K/mcL (0.0-0.6); Eosinophils % 2.6 %; Hematocrit 51.2 % (37.5-50.1); Hemoglobin 17.1 g/dL (12.9-16.9); Immature Granulocytes % 3.1 % (0-4); Lymphocytes # 2.8 K/mcL (0.6-4.6); Lymphocytes % 19.6 %; Mean Corpuscular HGB Conc 33.4 g/dL (31.6-35.5); Mean Corpuscular Hemoglobin 29.2 pg (28.0-33.3); Mean Corpuscular Volume 87.5 fL (83.0-100.0); Mean Platelet Volume 9.8 fL (9.4-12.4); Monocytes # 0.8 K/mcL (0.0-1.3); Neutrophils # 9.5 K/mcL (1.6-8.9); Platelet Count 259 K/mcL (140-400); Red Blood Count 5.85 M/mcL (4.19-5.50); Red Cell Distribution Width 14.5 % (11.5-14.5); Segmented Neutrophils % 67.6 %
[2018-06-25 05:13] LABS: BUN/Creatinine Ratio 12 (6-26); Blood Urea Nitrogen 12 mg/dL (6-20); Calcium 9.6 mg/dL (8.6-10.3); Carbon Dioxide 23 mEq/L (23-29); Chloride 105 mEq/L (98-107); Glucose 101 mg/dL (70-105); Magnesium 2.2 mg/dL (1.6-2.6); Osmolality,Calculated 284 (280-300); Potassium 4.2 mEq/L (3.5-5.1); Sodium 137 mEq/L (136-145); eGFR For Non-African Americans > 60 (> 60)
[2018-06-25] MEDS: *HR* Enoxaparin 40 MG/0.4 ML SYRINGE SQ SCH (06:03)
[2018-06-25] MEDS: Nystatin Cream 15 GM TUBE TP SCH ×4 (06:05→20:12)
[2018-06-25] MEDS: Cholecalciferol (D-3) 1,000 UNIT TABLET PO SCH (10:41)
[2018-06-25] MEDS: chlorproMAZINE 25 MG TABLET PO SCH ×3 (10:41→20:12)
[2018-06-25] MEDS: Multivit/Ca/Min/Fe/FA 1 TAB TABLET PO SCH (10:41)
[2018-06-25] MEDS: Desitin (Zinc Oxide) 56 GM TUBE TP SCH ×3 (12:33→20:30)
[2018-06-25] MEDS: cefTRIAXone 1,000 MG in Water for inj. (sterile) 20 ML 10 ML IVP SCH (17:22)
[2018-06-25] MEDS: OLANZapine 5 MG TAB.RAPDIS PO SCH (20:11)
[2018-06-25] MEDS: hydrOXYzine pamoate 25 MG CAPSULE PO SCH (20:11)
--- NOTE | 2018-06-25 22:04 | Internal Med Progress Note ---
Hospitalist Progress Note - Encounter Date of Encounter: 06/25/18 Time of Encounter: 12:00 - Subjective Interval History: SUBJECTIVE: His diarrhea subsided sometime yesterday late evening. Stool testing for C. difficile is negative. The patient does not have any nausea or vomiting. He denies abdominal pain. Pierre catheter is inserted. It is draining good amounts of urine. Hematuria has cleared. He denies chest pain. He denies difficulty breathing, coughing and wheezing. OBJECTIVE: Skin: He has a pretty big area of redness on his buttocks, resulting from action of liquid stool on his skin. ENMT: Oral/pharyngeal mucosa is normal in appearance. Eyes: Sclera is white. There is no discharge from eyes. Respiratory: Normal breath sounds; no crackles or wheezes. CV: Heart is regular; no gallop or murmur. GI: Abdomen is moderately distended. It is not as firm as it was yesterday. It is mildly tender in all 4 quadrants. I can hear hypoactive bowel sounds. Neuro: He has mild weakness in the right extremities. He basically does not move his left extremities at all. He has contractures in the left extremities. ADDITIONAL DATA: Hemoglobin is 17.1 with a WBC of 14.1 thousand. His BMP is normal (potassium is 4.2). KUB from today shows interval improvement in the bowel dilated patient, when compared to 06/11/2018. ASSESSMENT AND PLAN: Small bowel obstruction versus ileus. The problem seems to be gone. We will start him on regular diet. He is on IV Rocephin. Hypokalemia. Subsided after putting him on oral potassium chloride. Urinary tract infection. It is with pansensitive E. coli. Sepsis observed at admission subsided. He is on IV Rocephin. He will be discharged home on Omnicef. Left [place] ureter/left ureteral calculus. Those problems subsided after urological intervention. See notes from urology. Acute kidney injury subsided. This patient developed acute hypoxic respiratory failure due to sepsis/UTI. We stopped BiPAP treatments. He is on 2 L/min nasal cannula oxygen. He has underlying traumatic brain injury/seizure disorder. We will continue supportive treatments. Disposition: I anticipate his discharge from either tomorrow or after tomorrow. - Exam Vitals: Temp Pulse Resp BP Pulse Ox 97.6 F 90 17 105/69 95 06/25/18 15:34 06/25/18 15:34 06/25/18 15:34 06/25/18 15:34 06/25/18 15:34 Exam: xx - Assessment and Plan (1) SBO (small bowel obstruction) Current Visit: Yes Status: Acute (2) Hypokalemia Current Visit: Yes Status: Acute (3) UTI (urinary tract infection) Current Visit: Yes Status: Acute (4) Sepsis Current Visit: Yes Status: Resolved (5) Hydroureter, left Current Visit: Yes Status: Resolved (6) Left ureteral calculus Current Visit: Yes Status: Resolved (7) Acute kidney injury Current Visit: Yes Status: Resolved (8) Traumatic brain injury Current Visit: Yes Status: Chronic (9) 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 (10) Morbid obesity with BMI of 40.0-44.9, adult Current Visit: Yes Status: Chronic - Time Spent with Patient Total time spent is greater than 50% in coordination of care (as documented) at patient's floor/unit and/or counseling patient: 25 - 35 minutes Plan of Care Discussed with: nurse Internal Medicine: Result - Labs CBC & Chem 7: 06/25/18 04:32 06/25/18 04:32 Labs: Short CBC 06/25/18 Range/Units 04:32 WBC 14.1 H (4.3-11.1) K/mcL Hgb 17.1 H (12.9-16.9) g/dL Hct 51.2 H (37.5-50.1) % Plt Count 259 (140-400) K/mcL Neutrophils # 9.5 H (1.6-8.9) K/mcL BMP 06/25/18 04:32 Sodium 137 Potassium 4.2 Chloride 105 Carbon Dioxide 23 BUN 12 Creatinine 0.97 Glucose 101 Calcium 9.6 - ABG Interpretation ABG results: ABG ABG pH 7.41 pH Units (7.32-7.45) 06/21/18 01:34 ABG pCO2 48 mmHg (35-45) H 06/21/18 01:34 ABG pO2 47 mmHg (85-104) L* 06/21/18 01:34 ABG O2 Saturation 83 % (95-98) L 06/21/18 01:34 - Impressions Impressions KUB X-Ray 06/25/18 07:00 IMPRESSION: Interval improvement in bowel dilatation when compared to 06/11/2018. Visualized portion of the left ureteral stent appears unchanged. Proximal end was not imaged. D/ / 06/25/2018 08:35:34 Wallace Rondon MD / ankit Interpreting Provider: Wallace Rondon MD Consult Discharge Plan - Plan Referrals: NONE,PCP [Primary Care Provider] - (3) UTI (urinary tract infection) Qualifiers: Urinary tract infection type: site unspecified Hematuria presence: without hematuria Qualified Code(s): N39.0 - Urinary tract infection, site not specified (4) Sepsis Qualifiers: Sepsis type: Escherichia coli, in Qualified Code(s): P36.4 - Sepsis of due to Escherichia coli (8) Traumatic brain injury Qualifiers: Encounter type: subsequent encounter Loss of consciousness presence/duration: with LOC of unspecified duration Qualified Code(s): S06.9X9D - Unspecified intracranial injury with loss of consciousness of unspecified duration, subsequent encounter
[2018-06-25] MEDS: Potassium Chloride Elixir 20 MEQ/15 ML UDC PO SCH (23:52)
[2018-06-26] MEDS: Levalbuterol Neb 0.63 MG/3 ML IH SCH ×2 (04:05→09:57)
[2018-06-26] MEDS: *HR* Enoxaparin 40 MG/0.4 ML SYRINGE SQ SCH (05:47)
[2018-06-26] MEDS: chlorproMAZINE 25 MG TABLET PO SCH ×3 (08:11→17:19)
[2018-06-26] MEDS: Multivit/Ca/Min/Fe/FA 1 TAB TABLET PO SCH (08:11)
[2018-06-26] MEDS: Potassium Chloride Elixir 20 MEQ/15 ML UDC PO SCH ×2 (08:11→20:08)
[2018-06-26] MEDS: Cholecalciferol (D-3) 1,000 UNIT TABLET PO SCH (08:11)
[2018-06-26] MEDS: Insulin LISPRO 300 UNITS/3 ML VIAL SQ SCH ×4 (08:12→21:05)
[2018-06-26] MEDS: Desitin (Zinc Oxide) 56 GM TUBE TP SCH ×3 (11:11→21:22)
[2018-06-26] MEDS: Nystatin Cream 15 GM TUBE TP SCH ×3 (11:11→21:22)
[2018-06-26] MEDS: Acetaminophen 325 MG TABLET PO PRN ×2 (11:11→17:20)
[2018-06-26 12:05] LABS: Basophils # 0.1 K/mcL (0.0-0.2); Eosinophils # 0.3 K/mcL (0.0-0.6); Eosinophils % 2.6 %; Hematocrit 51.4 % (37.5-50.1); Hemoglobin 17.3 g/dL (12.9-16.9); Immature Granulocytes % 3.1 % (0-4); Lymphocytes # 2.4 K/mcL (0.6-4.6); Lymphocytes % 20.4 %; Mean Corpuscular HGB Conc 33.7 g/dL (31.6-35.5); Mean Corpuscular Hemoglobin 29.7 pg (28.0-33.3); Mean Corpuscular Volume 88.2 fL (83.0-100.0); Monocytes # 0.7 K/mcL (0.0-1.3); Monocytes % 6.3 %; Neutrophils # 7.7 K/mcL (1.6-8.9); Platelet Count 264 K/mcL (140-400); Red Blood Count 5.83 M/mcL (4.19-5.50); Red Cell Distribution Width 14.6 % (11.5-14.5); Segmented Neutrophils % 66.6 %
[2018-06-26] MEDS: Albuterol 2.5 MG/3 ML NEBULIZER IH SCH ×2 (15:27→22:18)
--- NOTE | 2018-06-26 15:42 | Internal Med Progress Note ---
Hospitalist Progress Note - Encounter Date of Encounter: 06/26/18 Time of Encounter: 15:39 - Subjective Interval History: Pt denies fever, chills, N/V. Has had 2 bouts of watery stools this am. He is on Colace. He denies abdominal pain. He does report feeling down and hence why he has not been eating much. Both parents arrived later in the after noon and I went back to update them on pt's medical status. Parents states he eats better when he is home ad didn't seem terribly worried about his eating. Pt is on medication for depression. Per mother he has gained about 30 lbs and has not lost weight. - Exam Vitals: Temp Pulse Resp BP Pulse Ox 98.2 F 88 18 141/81 93 06/26/18 11:20 06/26/18 11:20 06/26/18 15:27 06/26/18 11:20 06/26/18 15:27 Exam: xx - Assessment and Plan (1) Sepsis Current Visit: Yes Status: Resolved Assessment and Plan: Resolved. Multi-factorial from UTI due to E.Coli and bacteremia. Continue on Rocephine plan of care as above (2) Acute cystitis Current Visit: Yes Status: Acute Assessment and Plan: Acute cystitis due to Ecoli. Cultures showing Ecoli is pansensitive. Continue on Rocephine for now. Will switch to PO antibiotic at discharge. (3) Left ureteral calculus Current Visit: Yes Status: Resolved Assessment and Plan: Patient continues to complain of abdominal pain. Seen by Urology and s/p status post left ureteroscopic stone extraction, left RPG, left JJ stent placement. on oxycodone 4mg/IV Q4HR for pain control PRN. KUB 06/25/2018 shows Distal end of the left ureteral stent appears in expected position. (4) Hydroureter, left Current Visit: Yes Status: Resolved Assessment and Plan: KUB 06/25/2018 Distal end of the left ureteral stent appears in expected position. (5) Acute kidney injury Current Visit: Yes Status: Resolved Assessment and Plan: KAYLEN on presentation most likely pre-renal due to sepsis. Resolved following IV hydration Continue with renal protective strategies. (6) Morbid obesity with BMI of 40.0-44.9, adult Current Visit: Yes Status: Chronic Assessment and Plan: Life style modification such as diet and exercise recommended. (7) 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 (8) Traumatic brain injury Current Visit: Yes Status: Chronic Assessment and Plan: Pt will return home with parents who take care of him. (9) SBO (small bowel obstruction) Current Visit: Yes Status: Acute Assessment and Plan: Pt's diet has been resumed and though not eating as much, he is tolerating. Denies N/V. KUB 06/25/2018 XR/XR KUB IMPRESSION: Interval improvement in bowel dilatation when compared to 06/11/2018. Visualized portion of the left ureteral stent appears unchanged. Proximal end was not imaged. (10) Hypokalemia Current Visit: Yes Status: Acute Assessment and Plan: Corrected, cont K supplement and will recheck in am. 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 The brought into the emergency room due to complaints of nausea and persistent vomiting, associated with abdominal pain and hiccups. His symptoms started yesterday, and has been progressively worsening. His mother reports subjective fevers with chills. Vomitus is non-bloody and non-bilious, continued recently ingested nails. His mother also reports multiple episodes of choking on ingestion of liquids, and had recently just removed his feeding tube. She denies a history of cough or chest pain. He has had no changes in his bowel or urinary habits. He lives with his parents who take care of him, and by a motorized wheel chair at home. The patient himself is unable to participate in the history taking due to altered mentation. On presentation to the ER, he is afebrile, tachycardic, tachypneic, hypoxic on room air with oxygen saturation of 88%, Work up showed CBC with leukocytosis of 29,000 with left shift, hemoconcentration with polycythemia, acute kidney injury, urine analysis was significant leukocyte esterase and nitrites. Abdomen and pelvis CAT scan showed an obstructing 2 mm stone with resistant left hydro-nephrosis Although he is hypoxic on room air, chest x-ray did not show any infiltrates, no cardiomegaly. He is not in significant respiratory distress, but he is requiring at least 2 L O2 for saturation to be at He will be admitted for severe sepsis secondary to complicated UTI with KAYLEN and obstructive uropathy He is full code - Time Spent with Patient Total time spent is greater than 50% in coordination of care (as documented) at patient's floor/unit and/or counseling patient: less than 15 minutes Plan of Care Discussed with: patient Internal Medicine: Result - Labs CBC & Chem 7: 06/26/18 11:50 06/25/18 04:32 Labs: Short CBC 06/26/18 Range/Units 11:50 WBC 11.5 H (4.3-11.1) K/mcL Hgb 17.3 H (12.9-16.9) g/dL Hct 51.4 H (37.5-50.1) % Plt Count 264 (140-400) K/mcL Neutrophils # 7.7 (1.6-8.9) K/mcL - ABG Interpretation ABG results: ABG ABG pH 7.41 pH Units (7.32-7.45) 06/21/18 01:34 ABG pCO2 48 mmHg (35-45) H 06/21/18 01:34 ABG pO2 47 mmHg (85-104) L* 06/21/18 01:34 ABG O2 Saturation 83 % (95-98) L 06/21/18 01:34 Consult Discharge Plan - Plan Referrals: Jose Butterfield MD [Partnered Physician] - 07/05/18 10:15 am (1) Sepsis Qualifiers: Sepsis type: Escherichia coli, in Qualified Code(s): P36.4 - Sepsis of due to Escherichia coli (8) Traumatic brain injury Qualifiers: Encounter type: subsequent encounter Loss of consciousness presence/duration: with LOC of unspecified duration Qualified Code(s): S06.9X9D - Unspecified intracranial injury with loss of consciousness of unspecified duration, subsequent encounter
[2018-06-26] MEDS: cefTRIAXone 1,000 MG in Water for inj. (sterile) 20 ML 10 ML IVP SCH (17:19)
[2018-06-26] MEDS: OLANZapine 5 MG TAB.RAPDIS PO SCH (20:08)
[2018-06-26] MEDS ORDERED: traMADol 50 MG TABLET PO PRN (20:50)
[2018-06-26] MEDS: hydrOXYzine pamoate 25 MG CAPSULE PO SCH (21:21)
[2018-06-27] MEDS: Acetaminophen 325 MG TABLET PO PRN (00:08)
[2018-06-27] MEDS ORDERED: Melatonin 3 MG TABLET PO PRN (01:11)
[2018-06-27] MEDS: Albuterol 2.5 MG/3 ML NEBULIZER IH SCH ×4 (04:04→22:55)
[2018-06-27 05:16] LABS: Basophils # 0.1 K/mcL (0.0-0.2); Basophils % 0.7 %; Eosinophils # 0.4 K/mcL (0.0-0.6); Eosinophils % 2.9 %; Hematocrit 52.8 % (37.5-50.1); Hemoglobin 17.4 g/dL (12.9-16.9); Lymphocytes # 3.2 K/mcL (0.6-4.6); Lymphocytes % 25.3 %; Mean Platelet Volume 9.8 fL (9.4-12.4); Monocytes # 0.9 K/mcL (0.0-1.3); Monocytes % 6.9 %; Neutrophils # 7.8 K/mcL (1.6-8.9); Platelet Count 252 K/mcL (140-400); Red Cell Distribution Width 14.3 % (11.5-14.5); Segmented Neutrophils % 62.2 %
[2018-06-27 05:35] LABS: BUN/Creatinine Ratio 16 (6-26); Blood Urea Nitrogen 16 mg/dL (6-20); Calcium 9.8 mg/dL (8.6-10.3); Carbon Dioxide 24 mEq/L (23-29); Chloride 104 mEq/L (98-107); Glucose 128 mg/dL (70-105); Osmolality,Calculated 285 (280-300); Potassium 3.9 mEq/L (3.5-5.1); Sodium 136 mEq/L (136-145); eGFR For Non-African Americans > 60 (> 60)
[2018-06-27] MEDS: *HR* Enoxaparin 40 MG/0.4 ML SYRINGE SQ SCH (06:04)
[2018-06-27] MEDS: Insulin LISPRO 300 UNITS/3 ML VIAL SQ SCH ×4 (08:10→21:17)
[2018-06-27] MEDS ORDERED: 0.9 % Sodium Chloride 500 ML IVC PRN (12:40)
[2018-06-27] MEDS: 0.9 % Sodium Chloride 1,000 ML IVC SCH (13:42)
[2018-06-27] MEDS: chlorproMAZINE 25 MG TABLET PO SCH ×3 (13:47→21:16)
[2018-06-27] MEDS: Potassium Chloride Elixir 20 MEQ/15 ML UDC PO SCH ×2 (13:50→21:17)
[2018-06-27] MEDS: Nystatin Cream 15 GM TUBE TP SCH ×3 (13:50→21:17)
[2018-06-27] MEDS: Desitin (Zinc Oxide) 56 GM TUBE TP SCH ×3 (13:50→21:17)
[2018-06-27] MEDS: Multivit/Ca/Min/Fe/FA 1 TAB TABLET PO SCH (13:51)
[2018-06-27] MEDS: Cholecalciferol (D-3) 1,000 UNIT TABLET PO SCH (13:51)
[2018-06-27 13:53] LABS: % Iron Saturation 14 % (20-55); Iron 51 mcg/dL (65-175); Transferrin 267 mg/dL (203-362)
--- NOTE | 2018-06-27 14:06 | Internal Med Progress Note ---
Hospitalist Progress Note - Encounter Date of Encounter: 06/27/18 Time of Encounter: 14:04 - Subjective Interval History: Pt denies fever, chills, N/V. Has had 2 bouts of watery stools this am. He is on Colace. He denies abdominal pain. Parents states he eats better when he is home ad didn't seem terribly worried about his eating. Pt is on medication for depression. Per mother he has gained about 30 lbs and has not lost weight. - Exam Vitals: Temp Pulse Resp BP Pulse Ox 98.0 F 93 18 107/88 94 06/27/18 12:12 06/27/18 12:12 06/27/18 12:12 06/27/18 12:12 06/27/18 12:12 Exam: Exam: Gen: Calm, not in distress HEENT: Moist oral mucosa, sclera anicteric, not pale. Right facial rash so to be chronic by patient's mother Chest: Equal chest movement bilaterally REsp: CTAB on anterior auscultation, no wheezes or rhonchi or rales Heart: S1, S2, tachycardic, regular, no murmurs or gallops or rubs. Abdomen: Supraumbilical scar, scar from healed PEG tube site, obese, soft, not tender, BS present in al quadrants Extremities: Joint inspection is WNL, no pedal edema, pulses present bilaterally. Left upper extremity contracture Neuro: Alert, oriented to person, speech is forced, and slurred,no facial paralysis, left hemiplegia upper extremity worse than lower extremity Psych: Affect is appropriate for situation - Assessment and Plan (1) Sepsis Current Visit: Yes Status: Resolved Assessment and Plan: Resolved. Multi-factorial from UTI due to E.Coli and bacteremia. Continue on Rocephine plan of care as above (2) Acute cystitis Current Visit: Yes Status: Acute Assessment and Plan: Acute cystitis due to Ecoli. Cultures showing Ecoli is pansensitive. On Rocephine but will switch to Omnicef at discharge for few more days. (3) Left ureteral calculus Current Visit: Yes Status: Resolved Assessment and Plan: Patient denies abdominal pain today 06/27/2018. Seen by Urology and s/p status post left ureteroscopic stone extraction, left RPG, left JJ stent placement. on oxycodone 4mg/IV Q4HR for pain control PRN. KUB 06/25/2018 shows distal end of the left ureteral stent appears in expected position. (4) Hydroureter, left Current Visit: Yes Status: Resolved Assessment and Plan: KUB 06/25/2018 Distal end of the left ureteral stent appears in expected position. (5) Acute kidney injury Current Visit: Yes Status: Resolved Assessment and Plan: KAYLEN on presentation most likely pre-renal due to sepsis. Resolved following IV hydration Continue with renal protective strategies. (6) Morbid obesity with BMI of 40.0-44.9, adult Current Visit: Yes Status: Chronic Assessment and Plan: Life style modification such as diet and exercise recommended. (7) 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 Assessment and Plan: Continue on sz precautions (8) Traumatic brain injury Current Visit: Yes Status: Chronic Assessment and Plan: Hx of TBI. Pt will return home with parents who take care of him. (9) SBO (small bowel obstruction) Current Visit: Yes Status: Acute Assessment and Plan: Pt's diet has been resumed and though not eating as much, he is tolerating. Denies N/V. KUB 06/25/2018 XR/XR KUB IMPRESSION: Interval improvement in bowel dilatation when compared to 06/11/2018. Visualized portion of the left ureteral stent appears unchanged. Proximal end was not imaged. (10) Hypokalemia Current Visit: Yes Status: Acute Assessment and Plan: Corrected, cont K supplement and will recheck in am. 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 The brought into the emergency room due to complaints of nausea and persistent vomiting, associated with abdominal pain and hiccups. His symptoms started yesterday, and has been progressively worsening. His mother reports subjective fevers with chills. Vomitus is non-bloody and non-bilious. His mother also reports multiple episodes of choking on ingestion of liquids, and had recently just removed his feeding tube. She denies a history of cough or chest pain. He has had no changes in his bowel or urinary habits. He lives with his parents who take care of him, and by a motorized wheel chair at home. The patient himself is unable to participate in the history taking due to altered mentation. On presentation to the ER, he is afebrile, tachycardic, tachypneic, hypoxic on room air with oxygen saturation of 88%, Work up showed CBC with leukocytosis of 29,000 with left shift, hemoconcentration with polycythemia, acute kidney injury, urine analysis was significant leukocyte esterase and nitrites. Abdomen and pelvis CAT scan showed an obstructing 2 mm stone with resistant left hydro-nephrosis Although he is hypoxic on room air, chest x-ray did not show any infiltrates, no cardiomegaly. He is not in significant respiratory distress, but he is requiring at least 2 L O2 for saturation to be at He will be admitted for severe sepsis secondary to complicated UTI with KAYLEN and obstructive uropathy He is full code - Time Spent with Patient Total time spent is greater than 50% in coordination of care (as documented) at patient's floor/unit and/or counseling patient: less than 15 minutes Plan of Care Discussed with: patient Internal Medicine: Result - Labs CBC & Chem 7: 06/27/18 05:05 06/27/18 05:05 Labs: Short CBC 06/27/18 Range/Units 05:05 WBC 12.5 H (4.3-11.1) K/mcL Hgb 17.4 H (12.9-16.9) g/dL Hct 52.8 H (37.5-50.1) % Plt Count 252 (140-400) K/mcL Neutrophils # 7.8 (1.6-8.9) K/mcL BMP 06/27/18 05:05 Sodium 136 Potassium 3.9 Chloride 104 Carbon Dioxide 24 BUN 16 Creatinine 0.97 Glucose 128 H Calcium 9.8 - ABG Interpretation ABG results: ABG ABG pH 7.41 pH Units (7.32-7.45) 06/21/18 01:34 ABG pCO2 48 mmHg (35-45) H 06/21/18 01:34 ABG pO2 47 mmHg (85-104) L* 06/21/18 01:34 ABG O2 Saturation 83 % (95-98) L 06/21/18 01:34 - Impressions Impressions KUB X-Ray 06/25/18 07:00 IMPRESSION: 1. Interval improvement in bowel dilatation when compared to 06/11/2018. 2. Visualized portion of the left ureteral stent appears unchanged. Proximal end was not imaged. D/ / 06/25/2018 08:35:34 Wallace Rondon MD / ankit Interpreting Provider: Wallace Rondon MD Consult Discharge Plan - Plan Referrals: Jose Butterfield MD [Partnered Physician] - 07/05/18 10:15 am (1) Sepsis Qualifiers: Sepsis type: Escherichia coli, in Qualified Code(s): P36.4 - Sepsis of due to Escherichia coli (8) Traumatic brain injury Qualifiers: Encounter type: subsequent encounter Loss of consciousness presence/duration: with LOC of unspecified duration Qualified Code(s): S06.9X9D - Unspecified intracranial injury with loss of consciousness of unspecified duration, subsequent encounter
[2018-06-27] MEDS: cefTRIAXone 1,000 MG in Water for inj. (sterile) 20 ML 10 ML IVP SCH (18:13)
[2018-06-27] MEDS: hydrOXYzine pamoate 25 MG CAPSULE PO SCH (21:16)
[2018-06-27] MEDS: OLANZapine 5 MG TAB.RAPDIS PO SCH (21:16)
[2018-06-28] MEDS: Albuterol 2.5 MG/3 ML NEBULIZER IH SCH ×4 (04:11→21:35)
[2018-06-28 04:22] LABS: Basophils # 0.1 K/mcL (0.0-0.2); Basophils % 0.9 %; Eosinophils # 0.3 K/mcL (0.0-0.6); Eosinophils % 2.9 %; Immature Granulocytes % 1.6 % (0-4); Lymphocytes # 2.9 K/mcL (0.6-4.6); Lymphocytes % 26.2 %; Mean Corpuscular HGB Conc 33.3 g/dL (31.6-35.5); Mean Corpuscular Hemoglobin 29.5 pg (28.0-33.3); Mean Corpuscular Volume 88.6 fL (83.0-100.0); Mean Platelet Volume 10.6 fL (9.4-12.4); Monocytes # 0.7 K/mcL (0.0-1.3); Monocytes % 6.2 %; Neutrophils # 6.9 K/mcL (1.6-8.9); Platelet Count 211 K/mcL (140-400); Red Blood Count 5.42 M/mcL (4.19-5.50); Red Cell Distribution Width 14.3 % (11.5-14.5); Segmented Neutrophils % 62.2 %
[2018-06-28] MEDS: 0.9 % Sodium Chloride 1,000 ML IVC SCH ×2 (04:27→17:06)
[2018-06-28] MEDS: *HR* Enoxaparin 40 MG/0.4 ML SYRINGE SQ SCH (06:40)
[2018-06-28] MEDS: Potassium Chloride Elixir 20 MEQ/15 ML UDC PO SCH ×2 (08:07→21:12)
[2018-06-28] MEDS: Multivit/Ca/Min/Fe/FA 1 TAB TABLET PO SCH (08:08)
[2018-06-28] MEDS: Cholecalciferol (D-3) 1,000 UNIT TABLET PO SCH (08:08)
[2018-06-28] MEDS: chlorproMAZINE 25 MG TABLET PO SCH ×3 (08:08→21:12)
[2018-06-28] MEDS: Insulin LISPRO 300 UNITS/3 ML VIAL SQ SCH ×4 (08:09→22:01)
[2018-06-28] MEDS: Aquaphor/Maalox 50 GM BOTTLE TP PRN ×2 (08:19→17:20)
[2018-06-28] MEDS: Nystatin Cream 15 GM TUBE TP SCH ×2 (08:19→17:21)
[2018-06-28] MEDS: Desitin (Zinc Oxide) 56 GM TUBE TP SCH ×3 (13:17→21:12)
[2018-06-28] MEDS: cefTRIAXone 1,000 MG in Water for inj. (sterile) 20 ML 10 ML IVP SCH (17:08)
--- NOTE | 2018-06-28 18:24 | Internal Med Progress Note ---
Hospitalist Progress Note - Encounter Date of Encounter: 06/28/18 Time of Encounter: 11:00 - Subjective Interval History: Patient seen and examined today. He is in no acute distress. He denies any problems. He is not very verbal at baseline. The patient was admitted for presumptive UTI and was found to have Escherichia coli in his blood. The urine culture showed multiflora possibly not a good sample. The patient has a blood culture from yesterday which is pending and needs to be given 48 hours to make sure it is negative before patient can be discharged to [facility]. A verbal consult with infectious disease attending was performed which agreed with this plan. With recommendations of completing the rest of the antibiotics on oral Amoxil once discharged. The patient will need an additional 2 days of Amoxil to complete 14 days therapy. - Exam Vitals: Temp Pulse Resp BP Pulse Ox 97.6 F 83 14 100/61 89 06/28/18 11:24 06/28/18 11:24 06/28/18 15:57 06/28/18 07:54 06/28/18 15:57 Exam: Exam: Gen: Calm, not in distress HEENT: Moist oral mucosa, sclera anicteric, not pale. Right facial rash so to be chronic by patient's mother Chest: Equal chest movement bilaterally REsp: CTAB on anterior auscultation, no wheezes or rhonchi or rales Heart: S1, S2, tachycardic, regular, no murmurs or gallops or rubs. Abdomen: Supraumbilical scar, scar from healed PEG tube site, obese, soft, not tender, BS present in al quadrants Extremities: Joint inspection is WNL, no pedal edema, pulses present bilaterally. Left upper extremity contracture Neuro: Alert, oriented to person, speech is forced, and slurred,no facial paralysis, left hemiplegia upper extremity worse than lower extremity Psych: Affect is appropriate for situation - Assessment and Plan (1) Sepsis Current Visit: Yes Status: Resolved Assessment and Plan: Current Visit: Yes Status: Resolved Assessment and Plan: Resolved. Multi-factorial from UTI due to E.Coli and bacteremia. Continue on Rocephin. plan of care as above (2) Acute cystitis Current Visit: Yes Status: Acute Assessment and Plan: Acute cystitis due to Ecoli. Cultures showing Ecoli is pansensitive. On Rocephin but will switch to amoxil as out pt. (3) Left ureteral calculus Current Visit: Yes Status: Resolved Assessment and Plan: Patient denies abdominal pain today 06/27/2018. Seen by Urology and s/p status post left ureteroscopic stone extraction, left RPG, left JJ stent placement. on oxycodone 4mg/IV Q4HR for pain control PRN. KUB 06/25/2018 shows distal end of the left ureteral stent appears in expected position. (4) Hydroureter, left Current Visit: Yes Status: Resolved Assessment and Plan: KUB 06/25/2018 Distal end of the left ureteral stent appears in expected position. (5) Acute kidney injury Current Visit: Yes Status: Resolved Assessment and Plan: KAYLEN on presentation most likely pre-renal due to sepsis. Resolved following IV hydration Continue with renal protective strategies. (6) Morbid obesity with BMI of 40.0-44.9, adult Current Visit: Yes Status: Chronic Assessment and Plan: Life style modification such as diet and exercise recommended. (7) 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 Assessment and Plan: Continue on sz precautions (8) Traumatic brain injury Current Visit: Yes Status: Chronic Assessment and Plan: Hx of TBI. Pt will return home with parents who take care of him. (9) SBO (small bowel obstruction) Current Visit: Yes Status: Acute Assessment and Plan: Pt's diet has been resumed and though not eating as much, he is tolerating. No N/V. DC in AM when Blood culture neg x 48 hours. 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 The brought into the emergency room due to complaints of nausea and persistent vomiting, associated with abdominal pain and hiccups. His symptoms started yesterday, and has been progressively worsening. His mother reports subjective fevers with chills. Vomitus is non-bloody and non-bilious. His mother also reports multiple episodes of choking on ingestion of liquids, and had recently just removed his feeding tube. She denies a history of cough or chest pain. He has had no changes in his bowel or urinary habits. He lives with his parents who take care of him, and by a motorized wheel chair at home. The patient himself is unable to participate in the history taking due to altered mentation. On presentation to the ER, he is afebrile, tachycardic, tachypneic, hypoxic on room air with oxygen saturation of 88%, Work up showed CBC with leukocytosis of 29,000 with left shift, hemoconcentration with polycythemia, acute kidney injury, urine analysis was significant leukocyte esterase and nitrites. Abdomen and pelvis CAT scan showed an obstructing 2 mm stone with resistant left hydro-nephrosis Although he is hypoxic on room air, chest x-ray did not show any infiltrates, no cardiomegaly. He is not in significant respiratory distress, but he is requiring at least 2 L O2 for saturation to be at He will be admitted for severe sepsis secondary to complicated UTI with KAYLEN and obstructive uropathy He is full code - Time Spent with Patient Total time spent is greater than 50% in coordination of care (as documented) at patient's floor/unit and/or counseling patient: Internal Medicine: Result - Labs CBC & Chem 7: 06/28/18 04:04 06/27/18 05:05 Labs: Short CBC 06/28/18 Range/Units 04:04 WBC 11.1 (4.3-11.1) K/mcL Hgb 16.0 (12.9-16.9) g/dL Hct 48.0 (37.5-50.1) % Plt Count 211 (140-400) K/mcL Neutrophils # 6.9 (1.6-8.9) K/mcL - ABG Interpretation ABG results: ABG ABG pH 7.41 pH Units (7.32-7.45) 06/21/18 01:34 ABG pCO2 48 mmHg (35-45) H 06/21/18 01:34 ABG pO2 47 mmHg (85-104) L* 06/21/18 01:34 ABG O2 Saturation 83 % (95-98) L 06/21/18 01:34 Consult Discharge Plan - Plan Referrals: Jose Butterfield MD [Partnered Physician] - 07/05/18 10:15 am (1) Sepsis Qualifiers: Sepsis type: Escherichia coli, in Qualified Code(s): P36.4 - Sepsis of due to Escherichia coli
[2018-06-28] MEDS: hydrOXYzine pamoate 25 MG CAPSULE PO SCH (21:12)
[2018-06-28] MEDS: OLANZapine 5 MG TAB.RAPDIS PO SCH (21:12)
[2018-06-29] MEDS: Albuterol 2.5 MG/3 ML NEBULIZER IH SCH ×2 (03:54→11:01)
[2018-06-29 05:28] LABS: Basophils # 0.1 K/mcL (0.0-0.2); Basophils % 0.8 %; Eosinophils # 0.2 K/mcL (0.0-0.6); Eosinophils % 2.7 %; Hematocrit 46.2 % (37.5-50.1); Hemoglobin 14.9 g/dL (12.9-16.9); Immature Granulocytes % 1.3 % (0-4); Lymphocytes # 2.7 K/mcL (0.6-4.6); Lymphocytes % 30.6 %; Mean Corpuscular HGB Conc 32.3 g/dL (31.6-35.5); Mean Corpuscular Hemoglobin 29.2 pg (28.0-33.3); Mean Corpuscular Volume 90.6 fL (83.0-100.0); Mean Platelet Volume 10.4 fL (9.4-12.4); Monocytes # 0.6 K/mcL (0.0-1.3); Monocytes % 6.2 %; Neutrophils # 5.2 K/mcL (1.6-8.9); Platelet Count 186 K/mcL (140-400); Red Cell Distribution Width 14.1 % (11.5-14.5); Segmented Neutrophils % 58.4 %
[2018-06-29 05:42] LABS: BUN/Creatinine Ratio 13 (6-26); Blood Urea Nitrogen 10 mg/dL (6-20); Calcium 8.6 mg/dL (8.6-10.3); Carbon Dioxide 23 mEq/L (23-29); Chloride 108 mEq/L (98-107); Glucose 91 mg/dL (70-105); Osmolality,Calculated 287 (280-300); Sodium 139 mEq/L (136-145); eGFR For Non-African Americans > 60 (> 60)
[2018-06-29] MEDS: *HR* Enoxaparin 40 MG/0.4 ML SYRINGE SQ SCH (06:07)
[2018-06-29] MEDS: 0.9 % Sodium Chloride 1,000 ML IVC SCH (06:07)
[2018-06-29 06:55] VITALS: BP 101/65
--- NOTE | 2018-06-29 07:19 | Discharge Summary ---
- NOTES TO OUTPATIENT PROVIDER Notes to Outpatient Provider: Please check on final blood cultures drawn 06/27/18 Orders not resulted at time of discharge: Pending orders 06/27/18 10:25 Culture,Blood [BC] Routine Date of Encounter: 06/29/18 Time of Encounter: 10:08 - Discharge Diagnosis (1) Sepsis Priority: Primary Status: Resolved Qualifiers: Sepsis type: Escherichia coli Qualified Code(s): A41.51 - Sepsis due to Escherichia coli [E. coli] (2) Bacteremia Priority: Primary Status: Acute (3) SBO (small bowel obstruction) Priority: Secondary Status: Acute (4) UTI (urinary tract infection) Priority: Primary Status: Acute Qualifiers: Urinary tract infection type: site unspecified Hematuria presence: without hematuria Qualified Code(s): N39.0 - Urinary tract infection, site not specified (5) Hydroureter, left Priority: Secondary Status: Resolved Hospital course: History of present illness: From Admission note. Mr. 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 The brought into the emergency room due to complaints of nausea and persistent vomiting, associated with abdominal pain and hiccups. His symptoms started yesterday, and has been progressively worsening. His mother reports subjective fevers with chills. Vomitus is non-bloody and non-bilious, continued recently ingested nails. His mother also reports multiple episodes of choking on ingestion of liquids, and had recently just removed his feeding tube. She denies a history of cough or chest pain. He has had no changes in his bowel or urinary habits. He lives with his parents who take care of him, and by a motorized wheel chair at home. The patient himself is unable to participate in the history taking due to altered mentation. On presentation to the ER, he is afebrile, tachycardic, tachypneic, hypoxic on room air with oxygen saturation of 88%, Work up showed CBC with leukocytosis of 29,000 with left shift, hemoconcentration with polycythemia, acute kidney injury, urine analysis was significant leukocyte esterase and nitrites. Abdomen and pelvis CAT scan showed an obstructing 2 mm stone with resistant left hydro-nephrosis Although he is hypoxic on room air, chest x-ray did not show any infiltrates, no cardiomegaly. He is not in significant respiratory distress, but he is requiring at least 2 L O2 for saturation to be at Hospital Course: The patient was admitted to acute medical floor. He had treatment with IV antibiotics. He had urology evaluation. He had left ureteroscopic stone extraction, left RPG, left JJ stent placement. KUB 06/25/2018 shows distal end of the left ureteral stent appears in expected position. The patient had an episode of partial small bowel obstruction which resolved with conservative measures. The patient had positive blood cultures with Escherichia coli. He was treated with IV antibiotics. His last blood culture during treatment was on 06/27/2018 and negative at 48 hours. He is being discharged after he is clinically doing better and his blood cultures are negative at 48 hours. He will finish the antibiotic therapy with another 2 days of oral Amoxil at home. - Time Spent with Patient Total time spent providing and/or coordinating discharge services: Greater than 30 minutes - Discharge Medications Prescriptions: Amoxicillin Susp [Amoxil] 10 ml PO Q8HR 2 Days #100 ml Home Medications: Atorvastatin [Lipitor] 40 mg PO DAILY 06/17/18 [History] Cholecalciferol (D-3) [Vitamin D] 1,000 unit PO DAILY 06/17/18 [History] Multivitamin [One Daily Multivitamin] 1 tab PO DAILY 06/17/18 [History] OLANZapine [Zyprexa] 5 mg PO HS 06/17/18 [History] [place]-3 Fatty Acids [Fish Oil Concentrate] 2,000 mg PO DAILY 06/17/18 [History] Sertraline [Zoloft] 150 mg PO DAILY 06/17/18 [History] hydrOXYzine HCl [Hydroxyzine HCl] 25 - 50 mg PO HS 06/17/18 [History] Chlorpromazine HCl 10 mg PO TID 06/19/18 [History] Amoxicillin Susp [Amoxil] 10 ml PO Q8HR 2 Days #100 ml 06/29/18 [Rx] Allergies/Adverse Reactions: Allergy/AdvReac Type Severity Reaction Status Date / Time No Known Allergies Allergy Verified 06/17/18 10:25 Date of admission: 06/17/18 09:05 Primary care physician: PCP NONE Consults: 06/17/18 07:54 Consult to Urology [CONS] Stat Consulting Provider: Urology Mary Reason for Consult: UTI, left stone 2 mm Time Notified: 07:55 Call Completed: Yes 06/17/18 09:13 Consult to Speech Therapy [CONS] Routine Comment: Evaluate, develop and implement POC Reason for Consult: Dysphagia Call Completed: No 06/17/18 12:09 Consult to Payroll Accountant [CONS] Routine Reason for SW Consult: HOME HEALTH RENEWAL Discharging clinician: Emilia Vu Anticipated date of discharge: 06/29/18 - Constitutional Vitals: Temp Pulse Resp BP Pulse Ox 98.1 F 61 15 101/65 94 06/29/18 06:55 06/29/18 06:55 06/29/18 06:55 06/29/18 06:55 06/29/18 06:55 Exam: Exam: Patient seen and examined today. He does not have any complaints. Gen: Calm, not in distress HEENT: Moist oral mucosa, sclera anicteric, not pale. Right facial rash so to be chronic by patient's mother Chest: Equal chest movement bilaterally REsp: CTAB on anterior auscultation, no wheezes or rhonchi or rales Heart: S1, S2, tachycardic, regular, no murmurs or gallops or rubs. Abdomen: Supraumbilical scar, scar from healed PEG tube site, obese, soft, not tender, BS present in al quadrants Extremities: Joint inspection is WNL, no pedal edema, pulses present bilaterally. Left upper extremity contracture Neuro: Alert, oriented to person, speech is forced, and slurred,no facial paralysis, left hemiplegia upper extremity worse than lower extremity Psych: Affect is appropriate for situation - Patient Status Disposition: Home Health Service Condition: Fair Overall status at discharge: patient is back to baseline - Discharge Instructions Follow Up With: Jose Butterfield MD [Partnered Physician] - 07/05/18 10:15 am Additional Instructions: Follow with urology as scheduled for stent removal. Your nurse gorge inform you of the date and time. - Diet and Activity Activity: increase activity as tolerated Diet: advance to your usual diet
[2018-06-29] MEDS: Insulin LISPRO 300 UNITS/3 ML VIAL SQ SCH ×2 (08:34→12:12)
[2018-06-29] MEDS: Multivit/Ca/Min/Fe/FA 1 TAB TABLET PO SCH (09:05)
[2018-06-29] MEDS: chlorproMAZINE 25 MG TABLET PO SCH (09:05)
[2018-06-29] MEDS: Cholecalciferol (D-3) 1,000 UNIT TABLET PO SCH (09:05)
[2018-06-29] MEDS: Potassium Chloride Elixir 20 MEQ/15 ML UDC PO SCH (09:05)
[2018-06-29] MEDS: Desitin (Zinc Oxide) 56 GM TUBE TP SCH (09:12)
[2018-06-29] MEDS: Nystatin Cream 15 GM TUBE TP SCH (09:12)
== END 2018-06-29 13:40 | disposition home health service (06) | DRG 853 ==
LOC: EMEROOARM 05:12 → SUATTDRO 09:05 → 2NENU 09:05
PROVIDERS: ADMIT Internal Medicine; ATTEND Internal Medicine

== ENCOUNTER 2018-12-26 23:19 | Inpatient (IN) ==
[2018-12-26] MEDS ORDERED: Ketorolac 15 MG/ML VIAL IVP ONE (23:56)
[2018-12-26] MEDS ORDERED: 0.9 % Sodium Chloride 1,000 ML IVC ONE (23:56)
[2018-12-26] MEDS ORDERED: Ondansetron 4 MG/2 ML VIAL IVP ONE (23:56)
[2018-12-27 00:15] LABS: Basophils # 0.1 K/mcL (0.0-0.2); Basophils % 0.7 %; Eosinophils # 0.2 K/mcL (0.0-0.6); Eosinophils % 1.6 %; Hematocrit 50.7 % (37.5-50.1); Hemoglobin 17.1 g/dL (12.9-16.9); Immature Granulocytes % 0.7 % (0-4); Lymphocytes % 15.1 %; Mean Corpuscular HGB Conc 33.7 g/dL (31.6-35.5); Mean Corpuscular Hemoglobin 29.5 pg (28.0-33.3); Mean Corpuscular Volume 87.4 fL (83.0-100.0); Mean Platelet Volume 10.6 fL (9.4-12.4); Monocytes # 0.7 K/mcL (0.0-1.3); Monocytes % 5.2 %; Neutrophils # 10.3 K/mcL (1.6-8.9); Platelet Count 148 K/mcL (140-400); Segmented Neutrophils % 76.7 %
--- NOTE | 2018-12-27 00:31 | Emergency Department Note ---
Disposition Clinical Impression: Renal calculi Hydronephrosis Qualifiers: Hydronephrosis type: unspecified Qualified Code(s): N13.30 - Unspecified hydronephrosis Disposition: Admitted As Inpatient Condition: Fair Time of Disposition: 04:30 Abdominal Pain HPI - General Chief Complaint: ED Abdominal Pain Stated Complaint: abd pain Time Seen by Provider: 12/26/18 23:23 Source: patient Mode of arrival: private vehicle Limitations: no limitations Nursing Notes Reviewed: Yes Vital Signs Reviewed: Yes - History of Present Illness HPI Narrative: 38-year-old male presents emergency department for evaluation of left lower quadrant pain, decreased urinary output. Patient states history of renal stones, he has had a stent placed on the left side he does have a large dental left side, today's had some left lower quadrant pain, decreased urinary output. He states it is hard for him to urinate. He denies any hematuria. He denies fevers, chills, abdominal pain, nausea, vomiting. He is unsure who his urologist is or the plan. Patient is TBI, mother assists with care, she is not in facility at this time. Pt Subjective Complaint: abdominal pain Onset (ago): day(s) Consistency: constant Location: LLQ Pain Severity: severe Pain Scale: 8 Quality: sharp Migration to: no migration Improves with: nothing Worsens with: nothing Associated symptoms: Reports: denies other symptoms Treatments prior to arrival: none - Related Data Home Medications Medication Instructions Recorded Confirmed Atorvastatin [Lipitor] 40 mg PO DAILY 06/17/18 12/27/18 Cholecalciferol (D-3) [Vitamin D] 1,000 unit PO DAILY 06/17/18 12/27/18 Multivitamin [One Daily 1 tab PO DAILY 06/17/18 12/27/18 Multivitamin] OLANZapine [Zyprexa] 5 mg PO HS 06/17/18 12/27/18 [place]-3 Fatty Acids [Fish Oil 2,000 mg PO DAILY 06/17/18 12/27/18 Concentrate] Sertraline [Zoloft] 150 mg PO DAILY 06/17/18 12/27/18 hydrOXYzine HCl [Hydroxyzine HCl] 25 - 50 mg PO HS 06/17/18 12/27/18 Chlorpromazine HCl 10 mg PO TID 06/19/18 12/27/18 Allergies Allergy/AdvReac Type Severity Reaction Status Date / Time No Known Allergies Allergy Verified 12/27/18 02:55 All systems ED: reviewed and negative except as stated. Review of Systems: As Per HPI Abdominal Pain PMH - Past Medical History Medical history: Reports: hyperlipidemia, hypertension, seizures, other Male Surgical History: Reports: other Psychiatric history: Reports: no psych history - Social History Smoking status: Unknown if ever smoked Alcohol use: Reports: rarely Drug use: Reports: none Physical Exam - General Limitations: physical limitation (TBI) General appearance: alert, in no apparent distress - Head Head exam: atraumatic, normocephalic, normal inspection - Eye Eye exam: Present: normal appearance - ENT ENT exam: mucous membranes moist - Neck Neck exam: Present: normal inspection, full ROM, trachea midline - Chest Chest inspection: Present: normal inspection, symmetric chest wall rise - Respiratory Respiratory exam: Present: normal lung sounds bilaterally - Cardiovascular Cardiovascular exam: Present: regular rate, normal rhythm, normal heart sounds - Abdominal Exam Abdominal exam: Present: soft, Non-Tender, normal bowel sounds - Neurological Exam Neurological exam: Present: alert - Psychiatric Psychiatric exam: Present: normal affect, normal mood - Skin Skin exam: Present: warm, dry, intact, normal color Course Course Narrative: We will male no acute distress. Respirations are easy and even. Patient is non-tachycardic, afebrile. Physical examination is unremarkable. Patient had a KUB completed on 12/17/18 which showed a 5 mm stone in the left ureter, nephroureter stent. He states he is not able to urinate. Physical examination is unremarkable. We will obtain basic labs to check urinary status, give fluids and treat pain and reevaluate. - Reevaluation(s) Reevaluation #1: Patient resting quietly, he has not been able to urinate on his own, when he did he states "just a little became out". Labs are unremarkable, no evidence of infection with the urinary system. Given known renal calculi, stent concern for obstructive uropathy CT scan was obtained which showed possibility of stent dysfunction, slight hydronephrosis to the left kidney. There is no evidence of obstruction. I do feel patient would benefit from admission to the hospital with urological consultation. Patient and family are agreeable to plan of care. I spoke with hospitalist Dr. Quintana agreeable with admission to the hospital. Time: 04:30 Vital Signs Temperature 97.8 F 12/26/18 23:26 Pulse Rate 82 12/26/18 23:26 Respiratory Rate 16 12/26/18 23:26 Blood Pressure 137/93 12/26/18 23:26 O2 Sat by Pulse Oximetry 94 12/26/18 23:26 Temperature 98.3 F 12/27/18 04:30 Pulse Rate 73 12/27/18 04:30 Respiratory Rate 17 12/27/18 04:30 Blood Pressure 127/54 12/27/18 04:30 O2 Sat by Pulse Oximetry 93 12/27/18 04:30 Oxygen Delivery Oxygen Delivery Room Air Abdominal Pain - Lab Data Result diagrams: 12/27/18 00:03 12/27/18 00:03 Lab Results 12/27/18 12/27/18 12/27/18 Range/Units 00:03 00:03 00:37 WBC 13.4 H (4.3-11.1) K/mcL RBC 5.80 H (4.19-5.50) M/mcL Hgb 17.1 H (12.9-16.9) g/dL Hct 50.7 H (37.5-50.1) % MCV 87.4 (83.0-100.0) fL MCH 29.5 (28.0-33.3) pg MCHC 33.7 (31.6-35.5) g/dL RDW 16.0 H (11.5-14.5) % Plt Count 148 (140-400) K/mcL MPV 10.6 (9.4-12.4) fL Immature Gran % 0.7 (0-4) % Seg Neutrophils % 76.7 % Lymphocytes % 15.1 % Monocytes % 5.2 % Eosinophils % 1.6 % Basophils % 0.7 % Neutrophils # 10.3 H (1.6-8.9) K/mcL Lymphocytes # 2.0 (0.6-4.6) K/mcL Monocytes # 0.7 (0.0-1.3) K/mcL Eosinophils # 0.2 (0.0-0.6) K/mcL Basophils # 0.1 (0.0-0.2) K/mcL Sodium 138 (136-145) mEq/L Potassium 4.0 (3.5-5.1) mEq/L Chloride 105 (98-107) mEq/L Carbon Dioxide 25 (23-29) mEq/L BUN 10 (6-20) mg/dL Creatinine 1.01 (0.70-1.30) mg/dL Est GFR ( Amer) > 60 (> 60) Est GFR (Non-Af Amer) > 60 (> 60) BUN/Creatinine Ratio 10 (6-26) Glucose 117 H (70-105) mg/dL Calculated Osmolality 286 (280-300) Calcium 9.7 (8.6-10.3) mg/dL Urine Color Yellow (Yellow) Urine Clarity Cloudy A (Clear) Urine pH 7.0 (5.0-8.0) pH Units Ur Specific [place] 1.019 (1.010-1.025) Urine Protein 100 H (Neg-Trace) mg/dL Urine Glucose (UA) Normal (Normal) mg/dL Urine Ketones Negative (Negative) mg/dL Urine Blood Large H (Negative) Urine Nitrite Negative (Negative) Urine Bilirubin Negative (Negative) Urine Urobilinogen Normal (Normal) mg/dL Ur Leukocyte Esterase Small H (Negative) Urine Microscopic RBC TNTC H (0-3) per hpf Urine Microscopic WBC 5-15 H (0-3) per hpf Ur Squamous Epith Cells Many H (None-Few) per lpf Urine Bacteria None Seen (None-Few) per hpf Hyaline Casts Few (None-Few) per lpf Ur Culture Indicated? YES A (NO) Attestation Statement - Attestation Attestation: Patient seen and evaluated by mid-level assessment and plan as available for all questioning consultation and help if needed
[2018-12-27 00:34] LABS: BUN/Creatinine Ratio 10 (6-26); Blood Urea Nitrogen 10 mg/dL (6-20); Calcium 9.7 mg/dL (8.6-10.3); Carbon Dioxide 25 mEq/L (23-29); Chloride 105 mEq/L (98-107); Glucose 117 mg/dL (70-105); Osmolality,Calculated 286 (280-300); Sodium 138 mEq/L (136-145); eGFR For Non-African Americans > 60 (> 60)
[2018-12-27 00:51] LABS: Bilirubin,Urine Negative (Negative); Blood,Urine Large (Negative); Clarity,Urine Cloudy (Clear); Color,Urine Yellow (Yellow); Glucose,Urine (UA) Normal (Normal); Ketones,Urine Negative (Negative); Leukocyte Esterase,Urine Small (Negative); Nitrite,Urine Negative (Negative); Protein,Urine 100 mg/dL (Neg-Trace); Specific Gravity,Urine 1.019 (1.010-1.025); Urobilinogen,Urine Normal (Normal)
[2018-12-27 00:54] LABS: Bacteria,Urine None Seen per hpf (None-Few); Hyaline Casts,Urine Few per lpf (None-Few); RBC,Urine TNTC per hpf (0-3); Squamous Epithelial Cell,Urine Many per lpf (None-Few)
[2018-12-27] MEDS ORDERED: Naloxone 0.4 MG/ML INJ IVP PRN (06:36)
[2018-12-27] MEDS ORDERED: Ondansetron 4 MG/2 ML VIAL IVP PRN (06:36)
[2018-12-27] MEDS ORDERED: 0.9 % Sodium Chloride 1,000 ML IVC ONE (06:48)
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
[2018-12-27] MEDS ORDERED: *HR* LORazepam 1 MG TABLET PO PRN (08:18)
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
[2018-12-27] MEDS: *HR* OxyCODONE Immed Rel 5 MG TABLET PO PRN ×2 (09:01→15:40)
[2018-12-27] MEDS: Multivit/Ca/Min/Fe/FA 1 TAB TABLET PO SCH (09:02)
[2018-12-27] MEDS: Cholecalciferol (D-3) 1,000 UNIT TABLET PO SCH (09:02)
[2018-12-27] MEDS: CHLORPROMAZINE HCL 10 MG PO SCH ×3 (09:21→22:11)
[2018-12-27] MEDS: FATTY ACIDS PO SCH (09:21)
[2018-12-27] MEDS: OMEGA PO SCH (09:21)
[2018-12-27] MEDS: cefTRIAXone 1,000 MG in Water for inj. (sterile) 20 ML 10 ML IVP SCH (09:32)
[2018-12-27] MEDS: OLANZapine 5 MG TAB.RAPDIS PO SCH (22:12)
[2018-12-28] MEDS: Multivit/Ca/Min/Fe/FA 1 TAB TABLET PO SCH (08:34)
[2018-12-28] MEDS: Cholecalciferol (D-3) 1,000 UNIT TABLET PO SCH (08:34)
[2018-12-28] MEDS: OMEGA PO SCH (08:43)
[2018-12-28] MEDS: CHLORPROMAZINE HCL 10 MG PO SCH ×3 (08:43→21:24)
[2018-12-28] MEDS: FATTY ACIDS PO SCH (08:43)
--- NOTE | 2018-12-28 08:58 | Urology Progress Note ---
<Juanita Alfonso N - Last Filed: 12/28/18 08:55> Date of Encounter: 12/28/18 Time of Encounter: 08:40 - Assessment and Plan (1) Hydronephrosis Current Visit: Yes Status: Acute Qualifiers: Hydronephrosis type: unspecified Qualified Code(s): N13.30 - Unspecified hydronephrosis (2) Renal calculi Current Visit: Yes Status: Acute Assessment and plan: Patient is a 38-year-old male who presents with multiple renal calculi and mild left hydronephrosis with an indwelling left ureteral stent. Dr. Robin discussed options for stone management with patient and his mother who have elected conservative management. Vital signs are stable and afebrile, and urine culture is negative. CBC and BMP for this morning are pending. Clinically, patient appears to be improved, and if laboratory findings are stabilized, we may plan for outpatient cystoscopy and stent removal. Patient may also be d ischarged without indwelling Pierre catheter. Progress Note Subjective: no new complaints Narrative: Patient seen and examined lying in bed in no apparent distress. Pierre catheter is indwelling and draining transparent, clear yellow urine into bedside bag. Objective Initial Vital Signs Temp Pulse Resp BP Pulse Ox 97.8 F 82 16 137/93 94 12/26/18 23:26 12/26/18 23:26 12/26/18 23:26 12/26/18 23:26 12/26/18 23:26 - General physical appearance Present: no distress, no pain - Respiratory Present: normal expansion, normal respiratory effort - Abdomen Present: soft. Absent: distended - Genitourinary Urine Appearance: Present: Clear - Integumentary Present: no rash, no abnormal pigmentation - Musculoskeletal Present: normal posture - Psychiatric Present: oriented to time, oriented to person, oriented to place - Labs 12/27/18 00:03 12/27/18 00:03 Consult Discharge Plan - Plan Referrals: Asim Joseph DO [Resident] - <Victor Manuel Robin - Last Filed: 12/28/18 18:57> Date of Encounter: 12/28/18 - Assessment and Plan (1) Renal calculi Current Visit: Yes Status: Acute Assessment and plan: Catheter can be removed to verify the patient can urinate prior to discharge. We will plan for cystoscopy stent removal as an outpatient. Agree with physician grants assistant assessment and plan. Objective Initial Vital Signs Temp Pulse Resp BP Pulse Ox 97.8 F 82 16 137/93 94 12/26/18 23:26 12/26/18 23:26 12/26/18 23:26 12/26/18 23:26 12/26/18 23:26 - Labs 12/28/18 09:05 12/28/18 09:05 Diabetes panel 12/28/18 Range/Units 09:05 Sodium 139 (136-145) mEq/L Potassium 4.3 (3.5-5.1) mEq/L Chloride 105 (98-107) mEq/L Carbon Dioxide 27 (23-29) mEq/L BUN 10 (6-20) mg/dL Creatinine 1.09 (0.70-1.30) mg/dL Glucose 88 (70-105) mg/dL Calcium 9.3 (8.6-10.3) mg/dL Calcium panel 12/28/18 Range/Units 09:05 Calcium 9.3 (8.6-10.3) mg/dL Pituitary panel 12/28/18 Range/Units 09:05 Sodium 139 (136-145) mEq/L Potassium 4.3 (3.5-5.1) mEq/L Chloride 105 (98-107) mEq/L Carbon Dioxide 27 (23-29) mEq/L BUN 10 (6-20) mg/dL Creatinine 1.09 (0.70-1.30) mg/dL Glucose 88 (70-105) mg/dL Calcium 9.3 (8.6-10.3) mg/dL Adrenal panel 12/28/18 Range/Units 09:05 Sodium 139 (136-145) mEq/L Potassium 4.3 (3.5-5.1) mEq/L Chloride 105 (98-107) mEq/L Carbon Dioxide 27 (23-29) mEq/L BUN 10 (6-20) mg/dL Creatinine 1.09 (0.70-1.30) mg/dL Glucose 88 (70-105) mg/dL Calcium 9.3 (8.6-10.3) mg/dL
[2018-12-28 09:21] LABS: Basophils # 0.1 K/mcL (0.0-0.2); Basophils % 0.9 %; Eosinophils # 0.3 K/mcL (0.0-0.6); Eosinophils % 3.2 %; Hemoglobin 17.4 g/dL (12.9-16.9); Immature Granulocytes % 0.7 % (0-4); Lymphocytes # 2.3 K/mcL (0.6-4.6); Lymphocytes % 24.6 %; Mean Corpuscular HGB Conc 33.5 g/dL (31.6-35.5); Mean Corpuscular Hemoglobin 29.7 pg (28.0-33.3); Mean Corpuscular Volume 88.7 fL (83.0-100.0); Mean Platelet Volume 10.5 fL (9.4-12.4); Monocytes # 0.7 K/mcL (0.0-1.3); Monocytes % 7.7 %; Neutrophils # 5.9 K/mcL (1.6-8.9); Platelet Count 151 K/mcL (140-400); Red Blood Count 5.86 M/mcL (4.19-5.50); Red Cell Distribution Width 15.3 % (11.5-14.5); Segmented Neutrophils % 62.9 %
[2018-12-28 09:37] LABS: BUN/Creatinine Ratio 9 (6-26); Blood Urea Nitrogen 10 mg/dL (6-20); Calcium 9.3 mg/dL (8.6-10.3); Carbon Dioxide 27 mEq/L (23-29); Chloride 105 mEq/L (98-107); Glucose 88 mg/dL (70-105); Osmolality,Calculated 286 (280-300); Potassium 4.3 mEq/L (3.5-5.1); Sodium 139 mEq/L (136-145); eGFR For Non-African Americans > 60 (> 60)
[2018-12-28] MEDS: cefTRIAXone 1,000 MG in Water for inj. (sterile) 20 ML 10 ML IVP SCH (11:25)
--- NOTE | 2018-12-28 11:51 | Internal Med Progress Note ---
Hospitalist Progress Note - Encounter Date of Encounter: 12/28/18 Time of Encounter: 11:48 - Subjective Interval History: Pt seen and examined in the room. Talked to his family. Pain has been controlled. - Exam Vitals: Temp Pulse Resp BP Pulse Ox 98.4 F 74 16 123/77 95 12/28/18 10:40 12/28/18 10:40 12/28/18 10:40 12/28/18 10:40 12/28/18 10:40 Exam: PHYSICAL EXAMINATION: GENERAL APPEARANCE: The patient is alert, oriented and in no acute distress. HEENT: Head is normocephalic. The sinuses are nontender. Pupils are equal and reactive. The nares are patent. Oropharynx clear without lesions. NECK: Supple without lymphadenopathy. HEART: Regular rate and rhythm. LUNGS: No crackles or wheezes are heard. ABDOMEN: Soft, nontender, nondistended with good bowel sounds heard. Inguinal area is normal. EXTREMITIES: Without cyanosis, clubbing or edema. NEUROLOGICAL: Gross nonfocal. SKIN: Warm and dry without any rash. - Assessment and Plan (1) Abdominal pain Current Visit: Yes Status: Acute Assessment and Plan: Showed left-sided renal calculi, recent left ureteral stent stent placement, presented with abdominal pain or hematuria. Urology was consulted, treatment and plan discussed with patient and family by urology. Pain controlled, continue supportive care. (2) UTI (urinary tract infection) Current Visit: Yes Status: Suspected Assessment and Plan: Urine culture has no growth so far, continue IV Rocephin. (3) Left ureteral calculus Current Visit: No Status: Chronic Assessment and Plan: Urology following, outpatient cystoscopy and stent removal have been discussed with family. (4) Hydroureter, left Current Visit: No Status: Chronic Assessment and Plan: Urology following, appreciate help. (5) Traumatic brain injury Current Visit: No Status: Chronic Assessment and Plan: Stable, continue monitoring. (6) DVT prophylaxis Current Visit: Yes Status: Acute Assessment and Plan: Heparin subcutaneous. - Time Spent with Patient Total time spent is greater than 50% in coordination of care (as documented) at patient's floor/unit and/or counseling patient: Greater than 35 minutes Plan of Care Discussed with: family Internal Medicine: Result - Labs CBC & Chem 7: 12/28/18 09:05 12/28/18 09:05 Labs: Short CBC 12/28/18 Range/Units 09:05 WBC 9.4 (4.3-11.1) K/mcL Hgb 17.4 H (12.9-16.9) g/dL Hct 52.0 H (37.5-50.1) % Plt Count 151 (140-400) K/mcL Neutrophils # 5.9 (1.6-8.9) K/mcL BMP 12/28/18 09:05 Sodium 139 Potassium 4.3 Chloride 105 Carbon Dioxide 27 BUN 10 Creatinine 1.09 Glucose 88 Calcium 9.3 Consult Discharge Plan - Plan Referrals: NONE,PCP [Primary Care Provider] - (1) Abdominal pain Qualifiers: Abdominal location: left lower quadrant Qualified Code(s): R10.32 - Left lower quadrant pain (2) UTI (urinary tract infection) Qualifiers: Urinary tract infection type: acute cystitis Hematuria presence: without hematuria Qualified Code(s): N30.00 - Acute cystitis without hematuria (5) Traumatic brain injury Qualifiers: Encounter type: subsequent encounter Loss of consciousness presence/duration: with LOC of unspecified duration Qualified Code(s): S06.9X9D - Unspecified intracranial injury with loss of consciousness of unspecified duration, subsequent encounter
[2018-12-28] MEDS: *HR* Heparin 5,000 UNIT/ML VIAL SQ SCH (18:08)
[2018-12-28] MEDS: OLANZapine 5 MG TAB.RAPDIS PO SCH (21:37)
[2018-12-29] MEDS: *HR* Heparin 5,000 UNIT/ML VIAL SQ SCH (05:06)
[2018-12-29 06:02] LABS: Hematocrit 50.9 % (37.5-50.1); Hemoglobin 16.9 g/dL (12.9-16.9); Mean Corpuscular HGB Conc 33.2 g/dL (31.6-35.5); Mean Corpuscular Hemoglobin 29.4 pg (28.0-33.3); Mean Corpuscular Volume 88.7 fL (83.0-100.0); Mean Platelet Volume 10.6 fL (9.4-12.4); Platelet Count 161 K/mcL (140-400); Red Blood Count 5.74 M/mcL (4.19-5.50); Red Cell Distribution Width 14.9 % (11.5-14.5)
[2018-12-29 06:29] LABS: BUN/Creatinine Ratio 14 (6-26); Blood Urea Nitrogen 15 mg/dL (6-20); Calcium 9.4 mg/dL (8.6-10.3); Carbon Dioxide 24 mEq/L (23-29); Chloride 106 mEq/L (98-107); Glucose 101 mg/dL (70-105); Osmolality,Calculated 289 (280-300); Sodium 139 mEq/L (136-145); eGFR For Non-African Americans > 60 (> 60)
[2018-12-29 07:41] VITALS: BP 90/61
[2018-12-29] MEDS: CHLORPROMAZINE HCL 10 MG PO SCH (08:34)
[2018-12-29] MEDS: FATTY ACIDS PO SCH (08:34)
[2018-12-29] MEDS: OMEGA PO SCH (08:34)
[2018-12-29] MEDS: Cholecalciferol (D-3) 1,000 UNIT TABLET PO SCH (09:10)
[2018-12-29] MEDS: Multivit/Ca/Min/Fe/FA 1 TAB TABLET PO SCH (09:11)
--- NOTE | 2018-12-29 09:29 | Urology Progress Note ---
Date of Encounter: 12/29/18 Time of Encounter: 09:28 - Assessment and Plan (1) Renal calculi Current Visit: Yes Status: Acute Assessment and plan: Patient appears to be voiding without the catheter in place. No pain. Okay to discharge today from urology standpoint. We will arrange outpatient office cystoscopy and stent removal Progress Note Narrative: Patient asleep and resting comfortably Objective Initial Vital Signs Temp Pulse Resp BP Pulse Ox 97.8 F 82 16 137/93 94 12/26/18 23:26 12/26/18 23:26 12/26/18 23:26 12/26/18 23:26 12/26/18 23:26 - General physical appearance Present: no distress - Abdomen Absent: distended - Labs 12/29/18 05:12/29/18 05:31 Diabetes panel 12/28/18 12/29/18 Range/Units 09:05 05:31 Sodium 139 139 (136-145) mEq/L Potassium 4.3 4.0 (3.5-5.1) mEq/L Chloride 105 106 (98-107) mEq/L Carbon Dioxide 27 24 (23-29) mEq/L BUN 10 15 (6-20) mg/dL Creatinine 1.09 1.04 (0.70-1.30) mg/dL Glucose 88 101 (70-105) mg/dL Calcium 9.3 9.4 (8.6-10.3) mg/dL Calcium panel 12/28/18 12/29/18 Range/Units 09:05 05:31 Calcium 9.3 9.4 (8.6-10.3) mg/dL Pituitary panel 12/28/18 12/29/18 Range/Units 09:05 05:31 Sodium 139 139 (136-145) mEq/L Potassium 4.3 4.0 (3.5-5.1) mEq/L Chloride 105 106 (98-107) mEq/L Carbon Dioxide 27 24 (23-29) mEq/L BUN 10 15 (6-20) mg/dL Creatinine 1.09 1.04 (0.70-1.30) mg/dL Glucose 88 101 (70-105) mg/dL Calcium 9.3 9.4 (8.6-10.3) mg/dL Adrenal panel 12/28/18 12/29/18 Range/Units 09:05 05:31 Sodium 139 139 (136-145) mEq/L Potassium 4.3 4.0 (3.5-5.1) mEq/L Chloride 105 106 (98-107) mEq/L Carbon Dioxide 27 24 (23-29) mEq/L BUN 10 15 (6-20) mg/dL Creatinine 1.09 1.04 (0.70-1.30) mg/dL Glucose 88 101 (70-105) mg/dL Calcium 9.3 9.4 (8.6-10.3) mg/dL Consult Discharge Plan - Plan Referrals: Asim Joseph DO [Resident] -
[2018-12-29] MEDS: cefTRIAXone 1,000 MG in Water for inj. (sterile) 20 ML 10 ML IVP SCH (09:35)
--- NOTE | 2018-12-29 10:06 | Discharge Summary ---
- NOTES TO OUTPATIENT PROVIDER Notes to Outpatient Provider: f/u with Urology as scheduled. 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 Flores is a 38 year old male Patient presented to the emergency room with left lower quadrant abdominal pain and decreased urine output. 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 He has a recent history of kidney stone with stent placement a few weeks ago. He was discharged home. He developed decreased urine output and started to get left lower quadrant abdominal pain as well. He came to the emergency room to be evaluated. In the emergency room patient's initial vital signs were within normal limits. CBC revealed a white count of 13.4 but otherwise within normal limits. Patient's BMP was also within normal limits. Urinalysis was positive for small leukocyte esterase but negative nitrites and only a few white blood cells. An abdominal pelvis CT was ordered that showed mild left hydronephrosis in the setting of a left nephroureteral stent. radiology questioned that the stent was dysfunctioning. There is also mild inflammatory changes around the bladder and ureter. Patient was given 10 mg to her lack and 4 mg of Zofran. He was also given a liter bolus of IV fluids.he was admitted to the hospital floor for further management. He was started on IV Rocephin, IV fluid, and pain medications. Urology was consulted. Patient symptoms have significantly improved after treatment. Urology recommended outpatient follow-up for cystoscopy and stent removal. Urine culture has no growth. On the discharge day, patient voids without Pierre catheter, he does not have abdominal pain, his vital signs and labs both were unremarkable. Patient is discharged home today, he is prescribed with oral antibiotics and pain medicine. he will follow-up with urology as scheduled. Discharge discussed with: patient, family Time spent discussing smoking cessation with patient: more than 10 minutes - Time Spent with Patient Total time spent providing and/or coordinating discharge services: Time spent: Greater than 30 minutes - Discharge Medications Prescriptions: New Tramadol HCl [Ultram] 50 mg PO BID PRN 5 Days #10 tab PRN Reason: Pain Cephalexin [Keflex] 500 mg PO BID #10 capsule Continued [place]-3 Fatty Acids [Fish Oil Concentrate] 2,000 mg PO DAILY Cholecalciferol (D-3) [Vitamin D] 1,000 unit PO DAILY Atorvastatin [Lipitor] 40 mg PO QPM OLANZapine [Zyprexa] 5 mg PO HS hydrOXYzine HCl [Hydroxyzine HCl] 25 - 50 mg PO HS Sertraline [Zoloft] 150 mg PO DAILY Multivitamin [One Daily Multivitamin] 1 tab PO DAILY Melatonin [Melatin] 9 mg PO HS Home Medications: Atorvastatin [Lipitor] 40 mg PO QPM 06/17/18 [History] Cholecalciferol (D-3) [Vitamin D] 1,000 unit PO DAILY 06/17/18 [History] Multivitamin [One Daily Multivitamin] 1 tab PO DAILY 06/17/18 [History] OLANZapine [Zyprexa] 5 mg PO HS 06/17/18 [History] [place]-3 Fatty Acids [Fish Oil Concentrate] 2,000 mg PO DAILY 06/17/18 [History] Sertraline [Zoloft] 150 mg PO DAILY 06/17/18 [History] hydrOXYzine HCl [Hydroxyzine HCl] 25 - 50 mg PO HS 06/17/18 [History] Melatonin [Melatin] 9 mg PO HS 12/28/18 [History] Cephalexin [Keflex] 500 mg PO BID #10 capsule 12/29/18 [Rx] Tramadol HCl [Ultram] 50 mg PO BID PRN 5 Days #10 tab 12/29/18 [Rx] Allergies/Adverse Reactions: Allergy/AdvReac Type Severity Reaction Status Date / Time No Known Allergies Allergy Verified 12/27/18 02:55 Date of admission: 12/27/18 17:52 Primary care physician: PCP NONE Consults: 12/27/18 06:46 Consult to Urology [CONS] Routine Consulting Provider: Yasmanyy Mary Reason for Consult: Recent ureteral stent, mild hydronephrosis Call Completed: Yes Anticipated date of discharge: 12/29/18 - Constitutional Vitals: Temp Pulse Resp BP Pulse Ox 98.2 F 86 17 90/61 90 12/29/18 07:39 12/29/18 07:39 12/29/18 07:39 12/29/18 07:39 12/29/18 07:39 General appearance: Present: cooperative, A&O X 3, pleasant, no acute distress, answers questions appropriately Exam: PHYSICAL EXAMINATION: GENERAL APPEARANCE: The patient is alert, oriented and in no acute distress. HEENT: Head is normocephalic. The sinuses are nontender. Pupils are equal and reactive. The nares are patent. Oropharynx clear without lesions. NECK: Supple without lymphadenopathy. HEART: Regular rate and rhythm. LUNGS: No crackles or wheezes are heard. ABDOMEN: Soft, nontender, nondistended with good bowel sounds heard. Inguinal area is normal. EXTREMITIES: Without cyanosis, clubbing or edema. NEUROLOGICAL: Gross nonfocal. SKIN: Warm and dry without any rash. - Patient Status Disposition: Home, Self-Care Condition: Fair Functional capacity at discharge: wheelchair bound Overall status at discharge: patient is progressing back to baseline - Discharge Instructions Follow Up With: Asim Joseph DO [Resident] - - Diet and Activity Activity: increase activity as tolerated Diet: advance to your usual diet
== END 2018-12-29 14:06 | disposition home or self-care (01) | DRG 690 ==
LOC: EMEROOARM 23:19 → 3BNU 23:19
PROVIDERS: ADMIT Family Medicine; ATTEND Family Medicine

== ENCOUNTER 2020-05-27 13:36 | Inpatient (IN) ==
[2020-05-27] MEDS ORDERED: Acetaminophen 325 MG TABLET PO ONE (13:43)
[2020-05-27] MEDS ORDERED: 0.9 % Sodium Chloride 1,000 ML IVC ONE ×2 (13:56→14:09)
[2020-05-27] MEDS ORDERED: cefTRIAXone 1,000 MG in Water for inj. (sterile) 10 ML IVP ONE (13:57)
[2020-05-27 14:28] LABS: Basophils # 0.1 K/mcL (0.0-0.2); Basophils % 0.4 %; Eosinophils % 0.2 %; Hemoglobin 16.3 g/dL (12.9-16.9); Immature Granulocytes % 0.4 % (0-4); Lymphocytes # 0.8 K/mcL (0.6-4.6); Lymphocytes % 5.9 %; Mean Corpuscular Hemoglobin 30.9 pg (28.0-33.3); Mean Corpuscular Volume 91.1 fL (83.0-100.0); Mean Platelet Volume 10.2 fL (9.4-12.4); Monocytes # 0.7 K/mcL (0.0-1.3); Monocytes % 5.8 %; Neutrophils # 11.1 K/mcL (1.6-8.9); Platelet Count 155 K/mcL (140-400); Red Blood Count 5.27 M/mcL (4.19-5.50); Segmented Neutrophils % 87.3 %; White Blood Count 12.7 K/mcL (4.3-11.1)
[2020-05-27 15:00] LABS: Calcium 9.4 mg/dL (8.6-10.3); Potassium 3.9 mEq/L (3.5-5.1)
[2020-05-27 15:02] LABS: Bacteria,Urine Few per hpf (None-Few); Bilirubin,Urine Negative (Negative); Blood,Urine Small (Negative); Clarity,Urine Clear (Clear); Color,Urine Yellow (Yellow); Glucose,Urine (UA) Normal (Normal); Ketones,Urine Negative (Negative); Leukocyte Esterase,Urine Moderate (Negative); Mucus,Urine Few per lpf (None-Few); Nitrite,Urine Negative (Negative); Protein,Urine 70 mg/dL (Neg-Trace); RBC,Urine 0-3 per hpf (0-3); Specific Gravity,Urine 1.019 (1.010-1.025); Squamous Epithelial Cell,Urine Few per hpf (None-Few); Urobilinogen,Urine Normal (Normal)
[2020-05-27] MEDS ORDERED: Morphine Sulfate 2 MG/ML SYRINGE IVP ONE (16:45)
[2020-05-27] MEDS ORDERED: Naloxone 0.4 MG/ML INJ IVP PRN (17:23)
[2020-05-27] MEDS ORDERED: *HR* Propofol 200 MG/20 ML VIAL IVP ONE (17:40)
[2020-05-27] MEDS ORDERED: *HR* FentaNYL (PF) 100 MCG/2 ML VIAL ONE (17:40)
[2020-05-27] MEDS ORDERED: *HR* Midazolam HCl 2 MG/2 ML VIAL ONE (17:40)
[2020-05-27] MEDS ORDERED: Ondansetron 4 MG/2 ML VIAL ONE (17:42)
[2020-05-27] MEDS ORDERED: Dexamethasone 4 MG/ML VIAL ONE (17:42)
[2020-05-27] MEDS ORDERED: Lidocaine -MPF 2% 2 ML VIAL ONE (17:42)
[2020-05-27] MEDS ORDERED: Isovue-300 50ML VIAL ONE (17:51)
[2020-05-27] MEDS ORDERED: *HR* HYDROmorphone PF 0.5 MG/0.5 ML SYRINGE IVP PRN (18:19)
[2020-05-27] MEDS ORDERED: Ondansetron 4 MG/2 ML VIAL IVP PRN (18:19)
[2020-05-27] MEDS ORDERED: *HR* OxyCODONE Immed Rel 5 MG TABLET PO PRN (18:19)
[2020-05-27] MEDS ORDERED: *HR* PHENYLEPHRINE 1,000 MCG/10 ML SYRINGE IVP ONE (18:36)
[2020-05-27] MEDS: *HR* Heparin 5,000 UNIT/ML VIAL SQ SCH (20:42)
[2020-05-27] MEDS: 0.9 % Sodium Chloride 1,000 ML IVC SCH (20:42)
[2020-05-28 00:58] LABS: Basophils % 0.2 %; Hematocrit 47.6 % (37.5-50.1); Hemoglobin 15.3 g/dL (12.9-16.9); Immature Granulocytes % 0.5 % (0-4); Lymphocytes # 0.4 K/mcL (0.6-4.6); Lymphocytes % 3.1 %; Mean Corpuscular HGB Conc 32.1 g/dL (31.6-35.5); Mean Corpuscular Hemoglobin 29.7 pg (28.0-33.3); Mean Corpuscular Volume 92.4 fL (83.0-100.0); Mean Platelet Volume 10.7 fL (9.4-12.4); Monocytes # 0.3 K/mcL (0.0-1.3); Monocytes % 2.3 %; Neutrophils # 11.3 K/mcL (1.6-8.9); Platelet Count 146 K/mcL (140-400); Red Blood Count 5.15 M/mcL (4.19-5.50); Red Cell Distribution Width 13.1 % (11.5-14.5); Segmented Neutrophils % 93.9 %; White Blood Count 12.1 K/mcL (4.3-11.1)
[2020-05-28 01:15] LABS: BUN/Creatinine Ratio 9 (6-26); Blood Urea Nitrogen 13 mg/dL (6-20); Calcium 8.5 mg/dL (8.6-10.3); Carbon Dioxide 23 mEq/L (23-29); Chloride 108 mEq/L (98-107); Glucose 198 mg/dL (70-105); Osmolality,Calculated 292 (280-300); Potassium 4.2 mEq/L (3.5-5.1); Sodium 138 mEq/L (136-145); eGFR For African Americans > 60 (> 60); eGFR For Non-African Americans 55 (> 60)
[2020-05-28] MEDS: *HR* Heparin 5,000 UNIT/ML VIAL SQ SCH ×2 (05:11→17:23)
[2020-05-28] MEDS: 0.9 % Sodium Chloride 1,000 ML IVC SCH (05:11)
[2020-05-28 08:05] LABS: Acinetobacter baumannii by PCR Not Detected (Not Detect); Candida albicans by PCR Not Detected (Not Detect); Candida glabrata by PCR Not Detected (Not Detect); Candida krusei by PCR Not Detected (Not Detect); Candida parapsilosis by PCR Not Detected (Not Detect); Candida tropicalis by PCR Not Detected (Not Detect); Enterobacter cloacae Cmplx PCR Not Detected (Not Detect); Enterococcus by PCR Not Detected (Not Detect); Escherichia coli by PCR Not Detected (Not Detect); Klebsiella oxytoca by PCR Not Detected (Not Detect); Klebsiella pneumoniae by PCR Not Detected (Not Detect); Proteus by PCR DETECTED (Not Detect); Pseudomonas aeruginosa by PCR Not Detected (Not Detect); Serratia marcescens by PCR Not Detected (Not Detect); Staphylococcus aureus by PCR Not Detected (Not Detect); Staphylococcus by PCR Not Detected (Not Detect); Streptococcus agalactiae(B)PCR Not Detected (Not Detect); Streptococcus by PCR Not Detected (Not Detect); Streptococcus pneumoniae PCR Not Detected (Not Detect); Streptococcus pyogenes (A) PCR Not Detected (Not Detect); blaKPC Carbapenem-Resist Gene Not Detected (Not Detect)
[2020-05-28] MEDS ORDERED: Melatonin 3 MG TABLET PO PRN (14:56)
[2020-05-28] MEDS: cefTRIAXone 2,000 MG in Water for inj. (sterile) 20 ML IVP SCH (17:23)
[2020-05-28] MEDS: Sennosides/Docusate Sodium TABLET PO SCH (22:23)
[2020-05-29] MEDS: Ondansetron ODT 4 MG TAB.RAPDIS SL PRN ×3 (00:38→17:13)
[2020-05-29 01:21] LABS: Basophils % 0.2 %; Eosinophils % 0.2 %; Hematocrit 45.5 % (37.5-50.1); Hemoglobin 14.5 g/dL (12.9-16.9); Immature Granulocytes % 0.4 % (0-4); Lymphocytes # 1.4 K/mcL (0.6-4.6); Lymphocytes % 11.2 %; Mean Corpuscular HGB Conc 31.9 g/dL (31.6-35.5); Mean Corpuscular Hemoglobin 29.8 pg (28.0-33.3); Mean Corpuscular Volume 93.4 fL (83.0-100.0); Mean Platelet Volume 11.2 fL (9.4-12.4); Monocytes # 0.9 K/mcL (0.0-1.3); Monocytes % 7.6 %; Neutrophils # 9.8 K/mcL (1.6-8.9); Platelet Count 185 K/mcL (140-400); Red Blood Count 4.87 M/mcL (4.19-5.50); Red Cell Distribution Width 13.3 % (11.5-14.5); Segmented Neutrophils % 80.4 %; White Blood Count 12.2 K/mcL (4.3-11.1)
[2020-05-29 01:32] LABS: BUN/Creatinine Ratio 14 (6-26); Blood Urea Nitrogen 14 mg/dL (6-20); Calcium 8.7 mg/dL (8.6-10.3); Carbon Dioxide 24 mEq/L (23-29); Chloride 105 mEq/L (98-107); Glucose 98 mg/dL (70-105); Osmolality,Calculated 284 (280-300); Sodium 137 mEq/L (136-145); eGFR For African Americans > 60 (> 60); eGFR For Non-African Americans > 60 (> 60)
[2020-05-29] MEDS: *HR* Heparin 5,000 UNIT/ML VIAL SQ SCH ×2 (06:15→17:13)
[2020-05-29] MEDS: Multivit/Ca/Min/Fe/FA 1 TAB TABLET PO SCH (09:13)
[2020-05-29] MEDS: polyethylene glycoL 3350 17 GM POWD.PACK PO SCH (09:13)
[2020-05-29] MEDS: Cholecalciferol (D-3) 1,000 UNIT (25MCG) TABLET PO SCH (09:13)
[2020-05-29] MEDS: Sennosides/Docusate Sodium TABLET PO SCH ×2 (09:13→19:53)
[2020-05-29] MEDS: cefTRIAXone 2,000 MG in Water for inj. (sterile) 20 ML IVP SCH (17:14)
[2020-05-30 02:39] LABS: Hematocrit 45.7 % (37.5-50.1); Hemoglobin 14.8 g/dL (12.9-16.9); Mean Corpuscular HGB Conc 32.4 g/dL (31.6-35.5); Mean Corpuscular Hemoglobin 29.4 pg (28.0-33.3); Mean Corpuscular Volume 90.9 fL (83.0-100.0); Mean Platelet Volume 10.4 fL (9.4-12.4); Platelet Count 217 K/mcL (140-400); Red Blood Count 5.03 M/mcL (4.19-5.50); Red Cell Distribution Width 13.4 % (11.5-14.5); White Blood Count 9.1 K/mcL (4.3-11.1)
[2020-05-30 02:55] LABS: BUN/Creatinine Ratio 15 (6-26); Blood Urea Nitrogen 15 mg/dL (6-20); Calcium 8.9 mg/dL (8.6-10.3); Carbon Dioxide 27 mEq/L (23-29); Chloride 100 mEq/L (98-107); Glucose 86 mg/dL (70-105); Osmolality,Calculated 284 (280-300); Potassium 3.5 mEq/L (3.5-5.1); Sodium 137 mEq/L (136-145); eGFR For African Americans > 60 (> 60); eGFR For Non-African Americans > 60 (> 60)
[2020-05-30] MEDS: *HR* Heparin 5,000 UNIT/ML VIAL SQ SCH (05:30)
[2020-05-30] MEDS: Multivit/Ca/Min/Fe/FA 1 TAB TABLET PO SCH (08:36)
[2020-05-30] MEDS: Cholecalciferol (D-3) 1,000 UNIT (25MCG) TABLET PO SCH (08:36)
[2020-05-30] MEDS: polyethylene glycoL 3350 17 GM POWD.PACK PO SCH (08:36)
[2020-05-30] MEDS: Sennosides/Docusate Sodium TABLET PO SCH (08:36)
[2020-05-30 12:00] VITALS: BP 110/80
== END 2020-05-30 13:11 | disposition home or self-care (01) | DRG 659 ==
LOC: EMEROOARM 13:36 → 2ANU 13:36 → SUATTDRO 17:50 → 2ANU 18:00
PROVIDERS: ADMIT Internal Medicine; ATTEND Internal Medicine

== ENCOUNTER 2021-07-24 22:33 | Inpatient (IN) ==
[2021-07-24] MEDS ORDERED: *HR* LORazepam 2 MG/ML VIAL IVP ONE (23:31)
[2021-07-24] MEDS ORDERED: *HR* LORazepam 2 MG/ML VIAL IM ONE (23:42)
[2021-07-24 23:52] LABS: Basophils % 0.4 %; Eosinophils # 0.1 K/mcL (0.0-0.6); Eosinophils % 1.9 %; Hematocrit 52.4 % (37.5-50.1); Hemoglobin 17.5 g/dL (12.9-16.9); Immature Granulocytes % 0.6 % (0-4); Immature Platelets 5.3 % (1.1-6.1); Lymphocytes # 1.4 K/mcL (0.6-4.6); Lymphocytes % 25.8 %; Mean Corpuscular HGB Conc 33.4 g/dL (31.6-35.5); Mean Corpuscular Hemoglobin 29.3 pg (28.0-33.3); Mean Corpuscular Volume 87.6 fL (83.0-100.0); Mean Platelet Volume 9.9 fL (9.4-12.4); Monocytes # 0.6 K/mcL (0.0-1.3); Monocytes % 10.5 %; Neutrophils # 3.2 K/mcL (1.6-8.9); Platelet Count 148 K/mcL (140-400); Red Blood Count 5.98 M/mcL (4.19-5.50); Segmented Neutrophils % 60.8 %; White Blood Count 5.3 K/mcL (4.3-11.1)
[2021-07-25 00:02] LABS: INR 1.1; Prothrombin Time 11.9 Seconds (9.4-12.1)
[2021-07-25 00:05] LABS: Activated Partial Thrombo Time 34.5 Seconds (26.0-36.0)
[2021-07-25 00:13] LABS: Alanine Aminotransferase 239 Units/L (7-52); Albumin 4.5 g/dL (3.5-5.7); Albumin/Globulin Ratio 1.6 (1.1-2.2); Alkaline Phosphatase 90 Units/L (34-104); Aspartate Amino Transferase 125 Units/L (13-39); BUN/Creatinine Ratio 10 (6-26); Bilirubin,Direct 0.1 mg/dL (0.0-0.2); Bilirubin,Indirect 0.5 mg/dL (0.0-1.0); Bilirubin,Total 0.6 mg/dL (0.3-1.0); Blood Urea Nitrogen 11 mg/dL (6-20); Carbon Dioxide 24 mEq/L (23-29); Chloride 101 mEq/L (98-107); Globulin 2.8 g/dL (2.4-3.5); Glucose 86 mg/dL (70-105); Osmolality,Calculated 285 (280-300); Potassium 3.8 mEq/L (3.5-5.1); Sodium 138 mEq/L (136-145); Total Protein 7.3 g/dL (6.4-8.9); Troponin I < 0.03 ng/mL (< 0.04); eGFR For African Americans > 60 (> 60); eGFR For Non-African Americans > 60 (> 60)
[2021-07-25] MEDS ORDERED: Haloperidol Lactate 5 MG/ML VIAL IM ONE (00:21)
[2021-07-25 00:49] LABS: Influenza A PCR Negative (Negative); Influenza B PCR Negative (Negative); Resp. Syncytial Virus PCR Negative (Negative)
[2021-07-25 00:56] LABS: SARS-CoV-2 by PCR (In House) Positive (Negative)
[2021-07-25] MEDS ORDERED: *HR* LORazepam 2 MG/ML VIAL IM ONE (01:04)
[2021-07-25] MEDS ORDERED: *HR* Promethazine 25 MG/ML VIAL IM PRN (02:38)
[2021-07-25] MEDS ORDERED: Ondansetron 4 MG/2 ML VIAL IVP PRN (02:38)
[2021-07-25] MEDS ORDERED: *HR* OxyCODONE Immed Rel 5 MG TABLET PO PRN (02:38)
[2021-07-25] MEDS ORDERED: Acetaminophen 325 MG TABLET PO PRN (02:38)
[2021-07-25] MEDS ORDERED: Naloxone 0.4 MG/ML INJ IVP PRN (02:38)
[2021-07-25 05:27] LABS: Eosinophils % 1.8 %; Mean Platelet Volume 10.7 fL (9.4-12.4); Monocytes % 15.2 %
[2021-07-25 05:29] LABS: Basophils % 0.6 %; Eosinophils # 0.1 K/mcL (0.0-0.6); Hematocrit 54.4 % (37.5-50.1); Immature Granulocytes % 0.6 % (0-4); Immature Platelets 6.1 % (1.1-6.1); Lymphocytes # 1.4 K/mcL (0.6-4.6); Lymphocytes % 25.1 %; Mean Corpuscular HGB Conc 33.1 g/dL (31.6-35.5); Mean Corpuscular Hemoglobin 29.6 pg (28.0-33.3); Mean Corpuscular Volume 89.3 fL (83.0-100.0); Monocytes # 0.8 K/mcL (0.0-1.3); Neutrophils # 3.1 K/mcL (1.6-8.9); Platelet Count 129 K/mcL (140-400); Red Blood Count 6.09 M/mcL (4.19-5.50); Red Cell Distribution Width 14.4 % (11.5-14.5); Segmented Neutrophils % 56.7 %; White Blood Count 5.5 K/mcL (4.3-11.1)
[2021-07-25] MEDS: *HR* Enoxaparin 40 MG/0.4 ML SYRINGE SQ SCH (05:29)
[2021-07-25 05:51] LABS: INR 1.1; Prothrombin Time 11.9 Seconds (9.4-12.1)
[2021-07-25 06:42] LABS: Alanine Aminotransferase 220 Units/L (7-52); Albumin 4.7 g/dL (3.5-5.7); Albumin/Globulin Ratio 1.8 (1.1-2.2); Alkaline Phosphatase 95 Units/L (34-104); Aspartate Amino Transferase 107 Units/L (13-39); BUN/Creatinine Ratio 11 (6-26); Bilirubin,Total 0.6 mg/dL (0.3-1.0); Blood Urea Nitrogen 11 mg/dL (6-20); Calcium 8.9 mg/dL (8.6-10.3); Carbon Dioxide 24 mEq/L (23-29); Chloride 102 mEq/L (98-107); Chol/HDL Ratio 7.8 (0-4.9); Cholesterol 188 mg/dL (< 200); Globulin 2.6 g/dL (2.4-3.5); Glucose 87 mg/dL (70-105); HDL Cholesterol 24 mg/dL (40-59); LDL Cholesterol,Calculated 90 mg/dL (< 100); Lactate Dehydrogenase 276 Units/L (140-271); Magnesium 2.1 mg/dL (1.6-2.6); Osmolality,Calculated 283 (280-300); Potassium 3.8 mEq/L (3.5-5.1); Sodium 137 mEq/L (136-145); Total Protein 7.3 g/dL (6.4-8.9); Triglycerides 369 mg/dL (< 150); eGFR For African Americans > 60 (> 60); eGFR For Non-African Americans > 60 (> 60)
[2021-07-25] MEDS: Dexamethasone Sodium Phos/PF 10 MG/ML VIAL IVP SCH (08:53)
[2021-07-25] MEDS: Ipratropium 1 PUFF INHALER IH SCH ×3 (11:33→20:40)
[2021-07-25 12:43] LABS: C-Reactive Protein 20 mg/L (Less than 10)
[2021-07-25] MEDS: Melatonin 3 MG TABLET PO PRN (19:50)
[2021-07-25] MEDS ORDERED: traZODone 50 MG TABLET PO SCH (21:00)
[2021-07-26] MEDS: Ipratropium 1 PUFF INHALER IH SCH ×7 (00:26→23:18)
[2021-07-26 01:25] LABS: Hematocrit 51.9 % (37.5-50.1); Hemoglobin 17.8 g/dL (12.9-16.9); Mean Corpuscular HGB Conc 34.3 g/dL (31.6-35.5); Mean Corpuscular Hemoglobin 30.1 pg (28.0-33.3); Mean Corpuscular Volume 87.7 fL (83.0-100.0); Mean Platelet Volume 9.9 fL (9.4-12.4); Platelet Count 162 K/mcL (140-400); Red Blood Count 5.92 M/mcL (4.19-5.50)
[2021-07-26 01:45] LABS: Alanine Aminotransferase 157 Units/L (7-52); Albumin 4.6 g/dL (3.5-5.7); Albumin/Globulin Ratio 1.6 (1.1-2.2); Alkaline Phosphatase 85 Units/L (34-104); Aspartate Amino Transferase 60 Units/L (13-39); BUN/Creatinine Ratio 13 (6-26); Bilirubin,Total 0.5 mg/dL (0.3-1.0); Blood Urea Nitrogen 14 mg/dL (6-20); C-Reactive Protein 18 mg/L (Less than 10); Calcium 9.2 mg/dL (8.6-10.3); Carbon Dioxide 22 mEq/L (23-29); Chloride 103 mEq/L (98-107); Globulin 2.8 g/dL (2.4-3.5); Glucose 129 mg/dL (70-105); Osmolality,Calculated 286 (280-300); Potassium 4.1 mEq/L (3.5-5.1); Sodium 137 mEq/L (136-145); Total Protein 7.4 g/dL (6.4-8.9); eGFR For African Americans > 60 (> 60); eGFR For Non-African Americans > 60 (> 60)
[2021-07-26 01:50] LABS: Procalcitonin 0.14 ng/mL (0.00-0.15)
[2021-07-26 04:06] LABS: Ferritin 212 ng/mL (20-250)
[2021-07-26] MEDS: *HR* Enoxaparin 40 MG/0.4 ML SYRINGE SQ SCH (05:22)
[2021-07-26] MEDS: Dexamethasone Sodium Phos/PF 10 MG/ML VIAL IVP SCH (08:42)
[2021-07-26 13:41] LABS: Hepatitis B Core IgM Nonreactive (Nonreactive)
[2021-07-26 13:42] LABS: Hepatitis C Virus Antibody Nonreactive (Nonreactive)
[2021-07-26 13:43] LABS: Hepatitis A Antibody IgM Nonreactive (Nonreactive)
[2021-07-26] MEDS: Gabapentin 300 MG CAPSULE PO SCH ×2 (15:02→20:15)
[2021-07-26] MEDS: *HR* HYDROcodone/Acet 5/325 mg TABLET PO PRN (20:15)
[2021-07-26] MEDS: Melatonin 3 MG TABLET PO PRN (20:15)
[2021-07-26 22:40] LABS: Hepatitis B Surface Antigen Nonreactive (Nonreactive)
[2021-07-27 03:02] LABS: Hematocrit 52.8 % (37.5-50.1); Hemoglobin 17.2 g/dL (12.9-16.9); Mean Corpuscular HGB Conc 32.6 g/dL (31.6-35.5); Mean Corpuscular Hemoglobin 28.7 pg (28.0-33.3); Mean Platelet Volume 9.8 fL (9.4-12.4); Platelet Count 204 K/mcL (140-400); Red Cell Distribution Width 14.2 % (11.5-14.5)
[2021-07-27 03:08] LABS: White Blood Count 10.9 K/mcL (4.3-11.1)
[2021-07-27 03:27] LABS: Alanine Aminotransferase 104 Units/L (7-52); Albumin 4.5 g/dL (3.5-5.7); Albumin/Globulin Ratio 1.6 (1.1-2.2); Alkaline Phosphatase 79 Units/L (34-104); Aspartate Amino Transferase 33 Units/L (13-39); BUN/Creatinine Ratio 12 (6-26); Bilirubin,Total 0.5 mg/dL (0.3-1.0); Blood Urea Nitrogen 16 mg/dL (6-20); Calcium 9.1 mg/dL (8.6-10.3); Carbon Dioxide 23 mEq/L (23-29); Chloride 103 mEq/L (98-107); Globulin 2.9 g/dL (2.4-3.5); Glucose 100 mg/dL (70-105); Lactate Dehydrogenase 217 Units/L (140-271); Osmolality,Calculated 287 (280-300); Potassium 4.1 mEq/L (3.5-5.1); Sodium 138 mEq/L (136-145); Total Protein 7.4 g/dL (6.4-8.9); eGFR For African Americans > 60 (> 60); eGFR For Non-African Americans 60 (> 60)
[2021-07-27] MEDS: Ipratropium 1 PUFF INHALER IH SCH ×6 (03:58→23:53)
[2021-07-27] MEDS: *HR* Enoxaparin 40 MG/0.4 ML SYRINGE SQ SCH (05:48)
[2021-07-27] MEDS: Dexamethasone Sodium Phos/PF 10 MG/ML VIAL IVP SCH (09:29)
[2021-07-27] MEDS: Gabapentin 300 MG CAPSULE PO SCH ×3 (09:29→20:52)
[2021-07-27] MEDS: OMEGA PO SCH (09:30)
[2021-07-27] MEDS: FATTY ACIDS PO SCH (09:30)
[2021-07-27] MEDS: *HR* HYDROcodone/Acet 5/325 mg TABLET PO PRN ×2 (09:37→16:41)
[2021-07-28] MEDS: Ipratropium 1 PUFF INHALER IH SCH ×7 (03:49→23:44)
[2021-07-28] MEDS: *HR* Enoxaparin 40 MG/0.4 ML SYRINGE SQ SCH (05:30)
[2021-07-28 07:48] LABS: Hematocrit 53.3 % (37.5-50.1); Hemoglobin 17.3 g/dL (12.9-16.9); Mean Corpuscular HGB Conc 32.5 g/dL (31.6-35.5); Mean Corpuscular Hemoglobin 28.8 pg (28.0-33.3); Mean Corpuscular Volume 88.7 fL (83.0-100.0); Mean Platelet Volume 9.8 fL (9.4-12.4); Platelet Count 203 K/mcL (140-400); Red Blood Count 6.01 M/mcL (4.19-5.50); Red Cell Distribution Width 14.3 % (11.5-14.5); White Blood Count 7.2 K/mcL (4.3-11.1)
[2021-07-28] MEDS: FATTY ACIDS PO SCH (09:23)
[2021-07-28] MEDS: OMEGA PO SCH (09:23)
[2021-07-28] MEDS: Gabapentin 300 MG CAPSULE PO SCH ×3 (09:25→20:55)
[2021-07-28] MEDS: Dexamethasone Sodium Phos/PF 10 MG/ML VIAL IVP SCH (09:25)
[2021-07-28 10:46] LABS: Alanine Aminotransferase 72 Units/L (7-52); Albumin 4.5 g/dL (3.5-5.7); Albumin/Globulin Ratio 1.6 (1.1-2.2); Alkaline Phosphatase 84 Units/L (34-104); Aspartate Amino Transferase 26 Units/L (13-39); BUN/Creatinine Ratio 18 (6-26); Bilirubin,Total 0.6 mg/dL (0.3-1.0); Blood Urea Nitrogen 19 mg/dL (6-20); C-Reactive Protein 18 mg/L (Less than 10); Calcium 9.1 mg/dL (8.6-10.3); Carbon Dioxide 27 mEq/L (23-29); Chloride 103 mEq/L (98-107); Globulin 2.9 g/dL (2.4-3.5); Glucose 81 mg/dL (70-105); Osmolality,Calculated 291 (280-300); Potassium 3.8 mEq/L (3.5-5.1); Sodium 140 mEq/L (136-145); Total Protein 7.4 g/dL (6.4-8.9); eGFR For African Americans > 60 (> 60); eGFR For Non-African Americans > 60 (> 60)
[2021-07-28] MEDS: Melatonin 3 MG TABLET PO PRN (20:55)
[2021-07-29 02:28] LABS: Hematocrit 53.5 % (37.5-50.1); Hemoglobin 17.5 g/dL (12.9-16.9); Mean Corpuscular HGB Conc 32.7 g/dL (31.6-35.5); Mean Corpuscular Hemoglobin 29.1 pg (28.0-33.3); Mean Corpuscular Volume 88.9 fL (83.0-100.0); Mean Platelet Volume 9.7 fL (9.4-12.4); Platelet Count 277 K/mcL (140-400); Red Blood Count 6.02 M/mcL (4.19-5.50)
[2021-07-29 02:32] LABS: White Blood Count 11.3 K/mcL (4.3-11.1)
[2021-07-29] MEDS: Ipratropium 1 PUFF INHALER IH SCH ×4 (03:41→16:00)
[2021-07-29] MEDS: *HR* Enoxaparin 40 MG/0.4 ML SYRINGE SQ SCH (05:33)
[2021-07-29 06:31] VITALS: BP 122/81
[2021-07-29] MEDS: OMEGA PO SCH (09:19)
[2021-07-29] MEDS: FATTY ACIDS PO SCH (09:19)
[2021-07-29] MEDS: Dexamethasone Sodium Phos/PF 10 MG/ML VIAL IVP SCH (09:20)
[2021-07-29] MEDS: Gabapentin 300 MG CAPSULE PO SCH ×2 (09:21→16:05)
[2021-07-29 10:41] VITALS: PULSE 90; TEMP 98.6
[2021-07-29 16:03] VITALS: O2SAT 93
[2021-07-29 20:05] LABS: Ferritin 166 ng/mL (20-250)
== END 2021-07-29 19:30 | disposition other institution (70) | DRG 177 ==
LOC: 3BNU 22:33 → EMEROOARM 22:33 → 3BNU 07-25 02:03
PROVIDERS: ADMIT Internal Medicine; ATTEND Internal Medicine